=== PATIENT | female | born 1940 | race Caucasian/White ===

== ENCOUNTER 2020-04-01 09:57 | Outpatient (CLI) | payer MEDICARE, SELFPAY ==
[2020-04-01 10:08] LABS: Basophils Absolute Auto 0.04 K/mm3 (0.00-0.10); Basophils Percent Auto 0.6 % (0.0-1.0); Eosinophils Absolute Auto 0.05 K/mm3 (0.02-0.50); Eosinophils Percent Auto 0.8 % (1.0-6.0); Hematocrit 42.8 % (35.0-42.0); Hemoglobin 13.9 g/dL (11.7-13.8); Immature Granulocyte Absolute 0.01 K/mm3 (0.00-0.00); Immature Granulocyte Percent A 0.2 % (0.0-0.0); Lymphocytes Absolute Auto 1.92 K/mm3 (1.10-4.50); Lymphocytes Percent Auto 29.7 % (18.0-42.0); Mean Corpuscular HGB Conc 32.5 g/dL (32.0-36.0); Mean Corpuscular Hemoglobin 28.8 pg (27.0-31.0); Mean Corpuscular Volume 88.8 fL (78.0-102.0); Mean Platelet Volume 8.9 fl (9.2-11.8); Monocytes Absolute Auto 0.44 K/mm3 (0.10-0.90); Monocytes Percent Auto 6.8 % (2.0-11.0); Neutrophils Percent Auto 61.9 % (50.0-70.0); Platelet Count Result 268 K/mm3 (150-420); Red Blood Count 4.82 M/mm3 (4.20-5.40); Red Cell Distribution Width 13.1 % (11.6-14.4); White Blood Count 6.5 K/mm3 (4.8-10.8)
[2020-04-01 11:31] LABS: Alanine Aminotransferase 25 U/L (14-59); Albumin Level 3.7 g/dL (3.4-5.0); Alkaline Phosphatase 59 U/L (46-116); Anion Gap 4 mmol/L (8-16); Aspartate Amino Transferase 23 U/L (15-37); Bilirubin,Total 0.3 mg/dL (0.00-1.00); Blood Urea Nitrogen 14 mg/dL (7-18); Calcium 9.2 mg/dL (8.5-10.1); Carbon Dioxide 33 mmol/L (21-32); Chloride 103 mmol/L (98-108); Cholesterol 224 mg/dL (0-200); Estimated Glomerular Filt Rate 56; Glucose 86 mg/dL (70-99); HDL Direct 58 mg/dL (40-60); LDL Cholesterol Calculated 129 mg/dL (<130); Osmolality Calculated 289 mOsm/kg (285-295); Potassium 4.5 mmol/L (3.5-5.1); Sodium 140 mmol/L (136-145); Thyroid Stimulating Hormone 4.43 uIU/mL (0.36-3.74); Triglycerides 186 mg/dL (0-150)
[2020-04-03 13:28] LABS: Vitamin D 25 Hydroxy 65 ng/mL (30-100)
== END 2020-04-01 09:58 | disposition home or self-care (01) ==
LOC: CHSLAB 10:00
PROVIDERS: PCP Nurse Practitioner Family; Visit Provider Nurse Practitioner Family
DX: E03.9 Hypothyroidism, unspecified (principal); E78.5 Hyperlipidemia, unspecified; I10 Essential (primary) hypertension; Z79.899 Other long term (current) drug therapy; E55.9 Vitamin D deficiency, unspecified
CPT/HCPCS: 36415; 80053; 80061; 82306; 84439; 84443; 85025

== ENCOUNTER 2020-08-16 09:48 | Outpatient (CLI) | payer MEDICARE, SELFPAY ==
[2020-08-16 10:48] LABS: Free T4 Free Thyroxine 0.81 ng/dL (0.76-1.46); Thyroid Stimulating Hormone 4.54 uIU/mL (0.36-3.74)
== END 2020-08-16 09:49 | disposition home or self-care (01) ==
LOC: CHSLAB 09:50
PROVIDERS: PCP Nurse Practitioner Family; Visit Provider Nurse Practitioner Family
DX: E03.9 Hypothyroidism, unspecified (principal)
CPT/HCPCS: 36415; 84439; 84443

== ENCOUNTER 2020-09-02 10:48 | Outpatient (CLI) | payer MEDICARE, SELFPAY ==
[2020-09-02 10:59] LABS: Hematocrit 41.2 % (35.0-42.0); Hemoglobin 13.6 g/dL (11.7-13.8); Mean Corpuscular Hemoglobin 29.2 pg (27.0-31.0); Mean Corpuscular Volume 88.4 fL (78.0-102.0); Mean Platelet Volume 9.3 fl (9.2-11.8); Platelet Count Result 248 K/mm3 (150-420); Red Blood Count 4.66 M/mm3 (4.20-5.40); Red Cell Distribution Width 13.2 % (11.6-14.4); White Blood Count 5.5 K/mm3 (4.8-10.8)
[2020-09-02 12:11] LABS: Alanine Aminotransferase 21 U/L (14-59); Albumin Level 3.8 g/dL (3.4-5.0); Alkaline Phosphatase 60 U/L (46-116); Anion Gap 9 mmol/L (8-16); Aspartate Amino Transferase 17 U/L (15-37); Bilirubin,Total 0.3 mg/dL (0.00-1.00); Blood Urea Nitrogen 14 mg/dL (7-18); Carbon Dioxide 30 mmol/L (21-32); Chloride 102 mmol/L (98-108); Estimated Glomerular Filt Rate > 60; Glucose 103 mg/dL (70-99); Osmolality Calculated 292 mOsm/kg (285-295); Potassium 4.1 mmol/L (3.5-5.1); Sodium 141 mmol/L (136-145); Total Protein 6.7 g/dL (6.4-8.2); Vitamin B12 1087 pg/mL (193-986)
[2020-09-02 12:26] LABS: Folic Acid > 20.0 ng/mL (8.6->20)
== END 2020-09-02 10:49 | disposition home or self-care (01) ==
LOC: CHSLAB 10:50
PROVIDERS: PCP Family Medicine; Visit Provider Family Medicine
DX: R42 Dizziness and giddiness (principal); R53.83 Other fatigue; E53.8 Deficiency of other specified B group vitamins
CPT/HCPCS: 36415; 80053; 82607; 82746; 85027

== ENCOUNTER 2020-09-06 10:11 | Outpatient (CLI) | payer MEDICARE, SELFPAY ==
[2020-09-06 22:59] LABS: SARS-CoV-2 RNA PCR Negative
== END 2020-09-06 10:12 | disposition home or self-care (01) ==
LOC: CHSLAB 10:14
PROVIDERS: PCP Family Medicine; Visit Provider Family Medicine
DX: Z20.822 Contact with and (suspected) exposure to COVID-19 (principal)
CPT/HCPCS: C9803; U0003; U0005

== ENCOUNTER 2020-09-23 13:14 | Outpatient (CLI) | payer MEDICARE, SELFPAY ==
--- NOTE | 2020-09-23 13:17 | ECG_ITS ---
Measurements Intervals [place] Rate: 77 P: 76 [place]: 157 QRS: 42 QRSD: 99 T: 79 QT: 368 QTc: 418 Interpretive Statements SINUS RHYTHM BORDERLINE R WAVE PROGRESSION, ANTERIOR LEADS BORDERLINE ECG Electronically Signed On 09-23-2020 13:30:21 [employer] by Rocyk Giron D.O.
[2020-09-23 15:09] LABS: Add Urine Microscopic? NO; Appearance Urine Clear (Clear); Bilirubin Urine Negative (Negative); Blood Urine Negative (Negative); Color Urine Yellow (Yellow); Glucose Urine UA Negative (Negative); Ketones Urine Negative (Negative); Leukocyte Esterase Ur Negative LEU/UL (Negative); Nitrate Urine Negative (Negative); Protein Urine Negative (Negative); Specific Grav Ur 1.015 (1.010-1.020); Urobilinogen Urine 0.2 mg/dL (0.2-1.0); pH Urine 7.5 (5.0-8.0)
[2020-09-23 15:52] LABS: Magnesium 2.3 mg/dL (1.8-2.4)
[2020-09-23 16:10] LABS: Erythrocyte Sedimentation Rate 12 mm/hr (0-20)
[2020-09-25 13:21] LABS: Vitamin D 25 Hydroxy 59 ng/mL (30-100)
[2020-09-27 12:02] LABS: Anti Nuclear Antibody Titer >=1:1280 (Negative)
== END 2020-09-23 13:15 | disposition home or self-care (01) ==
PROVIDERS: PCP Nurse Practitioner Family; Visit Provider Nurse Practitioner Family
DX: R07.89 Other chest pain (principal); Z01.818 Encounter for other preprocedural examination; R53.83 Other fatigue; R20.8 Other disturbances of skin sensation; R68.89 Other general symptoms and signs; Z79.899 Other long term (current) drug therapy
CPT/HCPCS: 36415; 81003; 82306; 83735; 85652; 86038; 86039; 93005

== ENCOUNTER 2020-11-17 14:07 | Emergency (ER) | payer MEDICARE, SELFPAY ==
--- NOTE | 2020-11-17 14:12 | ED.NAVMDI ---
HPI - Nausea/Vomiting/Diarrhea General Chief complaint: Weakness Stated complaint: weak Source: patient Mode of arrival: ambulatory Limitations: no limitations History of Present Illness HPI Narrative: patient has had her 2nd COVID shot on October 16 elicited complaint: nausea and vomiting Onset (ago): day(s) (2) Description of vomiting: bilious Associated nausea: Yes Associated abdominal pain: No Exacerbating factors: eating Relieving factors: none Context: sick contacts ( daughter with similar symptoms) Associated symptoms: weakness Related Data Home Medications Medication Instructions Recorded Confirmed cholecalciferol (vitamin D3) 125 125 mcg PO DAILY 04/01/20 11/17/20 mcg (5,000 unit) capsule rosuvastatin 10 mg tablet 5 mg PO DAILY tablet 08/27/20 11/17/20 lisinopril 5 mg PO DAILY 11/17/20 11/17/20 melatonin 3 mg PO HS PRN 11/17/20 11/17/20 mirtazapine 15 mg PO DAILY 11/17/20 11/17/20 Allergies Allergy/AdvReac Type Severity Reaction Status Date / Time No Known Allergies Allergy Verified 09/30/20 07:59 Review of Systems Review of Systems: All systems reviewed & are unremarkable except as noted in HPI and below Constitutional: Constitutional: Denies chills, Reports fever(s) ( subjective) and Reports weakness Cardiovascular: Cardiovascular: Reports no additional cardiovascular complaints Respiratory: Respiratory: Reports no additional respiratory complaints Gastrointestinal: Gastrointestinal: Reports as per HPI Genitourinary: Genitourinary: Reports no additional female genitourinary complaints Musculoskeletal: Musculoskeletal: Reports no additional musculoskeletal complaints Neurologic: Reports system reviewed and no additional complaints, except as documented [facility] Past Medical History Medical History (Updated 11/17/20 @ 15:37 by Serafin Fowler MD) Benign paroxysmal positional vertigo Colon polyp YAZMIN (generalized anxiety disorder) HTN (hypertension) Hyperlipidemia Hypothyroidism Vitamin D deficiency Surgical History Surgical History (Updated 11/17/20 @ 14:21 by Serafin Fowler MD) History of bladder suspension procedure Hx of hysterectomy Family History Family History Father Pancreatic cancer Social History Social History Smoking status: Never smoker Alcohol intake: never Substance use: never Substance use type: does not use Additional living arrangements comments: . Has 3 children Gender identity (if verbalized by the patient): Female Exam Const: General: healthy appearing and no acute distress Nutritional Appearance: well nourished Orientation/consciousness: patient oriented x3 HENMT: Head: normal to inspection Ears: external ears normal Eyes: Cornea: corneas normal Pupils: Equal, round and reactive pupils present EOM: EOMs intact bilaterally Neck: Neck: normal visual inspection Resp: Effort & Inspection: normal respiratory effort Auscultation: clear to auscultation bilaterally Cardio: Rate: regular rate Rhythm: regular rhythm GI: GI Palp: Yes Soft to palpation and No Tenderness to palpation present (GI) Auscultation: Hyperactive bowel sounds present Back/Spine/Pelvis: Cervical Spine: cervical ROM normal Thoracic/Lumbar Spine: thoraco-lumbar ROM normal Skin: General skin exam: normal color Rashes: no rashes Neuro: General: patient oriented x3, moves all extremities, no meningeal signs and no focal motor deficits Speech: normal speech Gait exam (Neuro): Normal gait present Extrem: General: normal to inspection and no clubbing, cyanosis or edema Psych: Appearance: grossly normal and well kempt Mental Status: mental status grossly normal Affect: normal affect Attitude: cooperative Thought content: Yes Normal thought content present Course Vital Signs Vital signs: Vital Signs Temperature 37.2 C 11/17/20 14:
[2020-11-17 14:15] VITALS: BP 148/76; PULSE 86; RESP 15; TEMP 37.2; O2SAT 99
[2020-11-17] MEDS: ONDANSETRON INJ 4 MG/2 ML VIAL IV PUSH (14:28)
[2020-11-17] MEDS: SODIUM CHLORIDE 0.9% IV 1,000 ML 999 ML IV CONT (14:29)
[2020-11-17 14:47] LABS: Basophils Absolute Auto 0.03 K/mm3 (0.00-0.10); Basophils Percent Auto 0.4 % (0.0-1.0); Hematocrit 37.4 % (35.0-42.0); Hemoglobin 12.6 g/dL (11.7-13.8); Immature Granulocyte Absolute 0.03 K/mm3 (0.00-0.00); Immature Granulocyte Percent A 0.4 % (0.0-0.0); Lymphocytes Absolute Auto 1.99 K/mm3 (1.10-4.50); Mean Corpuscular HGB Conc 33.7 g/dL (32.0-36.0); Mean Corpuscular Volume 86.2 fL (78.0-102.0); Mean Platelet Volume 9.3 fl (9.2-11.8); Monocytes Absolute Auto 0.82 K/mm3 (0.10-0.90); Monocytes Percent Auto 11.1 % (2.0-11.0); Neutrophils Absolute Auto 4.5 K/mm3 (1.7-7.2); Neutrophils Percent Auto 61.1 % (50.0-70.0); Platelet Count Result 287 K/mm3 (150-420); Red Blood Count 4.34 M/mm3 (4.20-5.40); Red Cell Distribution Width 13.2 % (11.6-14.4); White Blood Count 7.4 K/mm3 (4.8-10.8)
[2020-11-17 15:08] LABS: Alanine Aminotransferase 20 U/L (14-59); Albumin Level 3.4 g/dL (3.4-5.0); Alkaline Phosphatase 48 U/L (46-116); Anion Gap 8 mmol/L (8-16); Aspartate Amino Transferase 22 U/L (15-37); Bilirubin,Total 0.5 mg/dL (0.00-1.00); Blood Urea Nitrogen 21 mg/dL (7-18); Calcium 8.2 mg/dL (8.5-10.1); Carbon Dioxide 27 mmol/L (21-32); Chloride 94 mmol/L (98-108); Estimated Glomerular Filt Rate 56; Glucose 105 mg/dL (70-99); Lipase 243 U/L (73-393); Osmolality Calculated 271 mOsm/kg (285-295); Potassium 3.7 mmol/L (3.5-5.1); Sodium 129 mmol/L (136-145); Total Protein 6.8 g/dL (6.4-8.2)
[2020-11-17 15:14] LABS: CRP 0.4 mg/dL (0.0-0.9)
[2020-11-17 15:20] LABS: Add Urine Microscopic? YES; Appearance Urine Clear (Clear); Bilirubin Urine Negative (Negative); Blood Urine Negative (Negative); Color Urine Yellow (Yellow); Glucose Urine UA Negative (Negative); Ketones Urine 1+ (Negative); Leukocyte Esterase Ur Negative LEU/UL (Negative); Nitrate Urine Negative (Negative); Protein Urine Negative (Negative); Specific Grav Ur >= 1.030 (1.010-1.020); Urobilinogen Urine 0.2 mg/dL (0.2-1.0)
[2020-11-17 15:30] LABS: Squamous Epithelial Cell Urine Few /hpf (Few); WBC Urine 0-3 /hpf (0-3)
[2020-11-17 16:24] VITALS: BP 153/76
== END 2020-11-17 16:25 | disposition home or self-care (01) ==
PROVIDERS: Emergency Provider Emergency Medicine; PCP Nurse Practitioner Family
DX: K52.9 Noninfective gastroenteritis and colitis, unspecified (principal); E87.1 Hypo-osmolality and hyponatremia; I10 Essential (primary) hypertension; E78.5 Hyperlipidemia, unspecified; E03.9 Hypothyroidism, unspecified; E55.9 Vitamin D deficiency, unspecified
CPT/HCPCS: 36415; 51701; 80053; 81001; 83690; 85025; 86140; 96361; 96374; 99283; 99284; J2405; J7030

== ENCOUNTER 2020-11-18 04:12 | Inpatient (IN) | payer MEDICARE, SELFPAY ==
[2020-11-18] VITALS (18 sets, daily range): BP systolic 121–179; BP diastolic 61–98; PULSE 77–98; RESP 18–20; TEMP 37–38.8; O2SAT 94–100; BMI 20.9
--- NOTE | ~2020-11-18 | CT_ITS ---
EXAMINATION: CT cervical spine wo con DATE: 11/19/2020 03:03 INDICATION: Patient fell out of bed and struck forehead. TECHNIQUE: Computed tomography (CT) of the cervical spine was performed without intravenous contrast. Automated exposure control and iterative reconstruction technique were employed. Exam dose: 248.10 mGy-cm total exam DLP. COMPARISON: None FINDINGS: C1 and C2 are normally aligned and the odontoid process is intact. There is moderately severe degenerative disc disease and posterior spurring at C5-6. No fracture or dislocation or locked facet or prevertebral soft tissue swelling.. IMPRESSION: Degenerative change; no fracture or dislocation Reviewed, dictated and finalized at [facility]. Reviewed, dictated and finalized at location [facility].
--- NOTE | ~2020-11-18 | CT_ITS ---
EXAMINATION: CT brain wo con DATE: 11/18/2020 04:47 INDICATION: Fall, striking head in shower. Weakness. TECHNIQUE: Computed tomography (CT) of the head was performed without intravenous contrast. The mA wa s adjusted according to patient size. Iterative reconstruction technique was employed. Exam dose: 60 5.33 mGy-cm total exam DLP. COMPARISON: None FINDINGS: No intracranial mass lesion or hemorrhage or cerebrovascular accident is evident. No midlin e shift or mass effect. Normal ventricular size. There is nonspecific diminished attenuation cerebral white matter, likely due to chronic small vessel ischemic changes No skull fracture or bone destruction is evident. There is mild focal soft tissue thickening at the posterior aspect of the left sphenoid sinus. Includ ed paranasal sinuses and mastoid air cells otherwise are unremarkable. IMPRESSION: No skull fracture or acute intracranial finding Reviewed, dictated and finalized at [facility]. Reviewed, dictated and finalized at [facility].
--- NOTE | ~2020-11-18 | CT_ITS ---
EXAMINATION: CT brain wo con DATE: 11/19/2020 03:03 INDICATION: Patient fell out of bed and struck forehead. TECHNIQUE: Computed tomography (CT) of the head was performed without intravenous contrast. The mA wa s adjusted according to patient size. Iterative reconstruction technique was employed. Exam dose: 83 2.33 mGy-cm total exam DLP. COMPARISON: 11/18/2020 CT brain FINDINGS: No intracranial mass lesion or hemorrhage or cerebrovascular accident is evident. No midlin e shift or mass effect effect. Normal ventricular size. No subdural or epidural hematoma is detected. The orbital contents are unremarkable. Focal posterior left sphenoid sinus soft tissue thickening. The included paranasal sinuses and the ma stoid air cells are otherwise unremarkable. No fracture or bone destruction of the cranial vault. IMPRESSION: No significant intracranial abnormality or skull fracture Reviewed, dictated and finalized at [facility]. Reviewed, dictated and finalized at location [facility].
--- NOTE | ~2020-11-18 | XR_ITS ---
XR chest 1V portable DATE: 11/19/2020 03:03 INDICATION: Fever TECHNIQUE: Portable AP chest on 11/19/2020 at 0301 hours COMPARISON: None FINDINGS: Heart size is within normal range. Is aortic calcification. No hilar or mediastinal enlarge ment. No pulmonary infiltrate or consolidation, pleural effusion or pulmonary vascular congestion or pneumothorax. Diffuse osteopenia. IMPRESSION: No active cardiopulmonary disease Aortic atherosclerosis Reviewed, dictated and finalized at location A.
--- NOTE | ~2020-11-18 | XR_ITS ---
EXAMINATION: XR abdomen/kub 1V DATE: 11/19/2020 07:19 INDICATION: Fever. TECHNIQUE: A supine view of the abdomen on 2 radiographs was obtained. COMPARISON: Abdomen radiograph 11/18/2020 FINDINGS: There are no dilated loops of bowel. There is a moderate volume of stool in the colon. IMPRESSION: 1. Normal bowel gas pattern. Reviewed, dictated and finalized at location B.
--- NOTE | ~2020-11-18 | MR_ITS ---
EXAMINATION: MR brain IAC wo con DATE: 11/20/2020 10:44 INDICATION: Altered mental status. Confusion. TECHNIQUE: Magnetic resonance imaging (MRI) of the brain, brainstem, and internal auditory canals was performed without intravenous contrast. Sequences included sagittal and axial T1-weighted FSE, axial diffusion-weighted FS EPI, axial T2*-weighted GRE, axial T2-weighted FLAIR Propeller, axial T2-weigh juan francisco Propeller, small vtmtx-uz-[id number] coronal FIESTA, small wnelw-fo-zjyl coronal T1-weighted FSE, and s mall gtrcl-yq-[id number] axial T1-weighted SPGR. Apparent diffusion coefficient (ADC) maps were created. COMPARISON: Head CT 11/19/2020 FINDINGS: There are scattered areas of nonspecific increased T2-weighted signal intensity in the cere bral and cerebellar white matter and thalami and prince. There is no intracranial hemorrhage, acute inf arction, or abnormal intracranial mass lesion. There is mild mucosal thickening in the ethmoid sinuse s. The internal auditory canals and inner and middle ears are normal. The mastoid air cells are ashley l. The orbits are normal. IMPRESSION: 1. Moderate nonspecific cerebral and cerebellar white matter disease and disease of the thalami and p ons, which likely represents chronic small vessel ischemic disease. Reviewed, dictated and finalized at location B. IMPRESSION: 1. Moderate nonspecific cerebral and cerebellar white matter disease and diseas e of the thalami and prince, which likely represents chronic small vessel ischemi c disease.
--- NOTE | ~2020-11-18 | CT_ITS ---
EXAMINATION: CT chest abdomen pelvis w con DATE: 11/19/2020 11:56 INDICATION: Abdominal pain. Fever. TECHNIQUE: Computed tomography (CT) of the chest, abdomen, and pelvis was performed with 100 mL Omnip aque 350 intravenous contrast. Automated exposure control and iterative reconstruction technique were employed. The dose-length product was 331.12 mGy-cm. COMPARISON: CT abdomen and pelvis 08/12/2017 FINDINGS: CHEST CT: There is mild scarring at the lung apices. There is mild atelectasis bilaterally. No pleural effusion . There are nodules in the thyroid measuring up to 10 mm, likely not clinically significant. The hear t size is normal. There are coronary artery calcifications. No pericardial effusion. There is mild th oracic spondylosis. There is mild chronic anterior wedging of multiple vertebral bodies. ABDOMEN/PELVIS CT: There is diffuse hepatic steatosis. The gallbladder, spleen, pancreas, adrenal glands, and right kidn ey are normal. There is a 12 mm cyst in left kidney. There are no dilated loops of bowel. There are b ilateral inguinal hernias containing fat. There is diverticulosis of the colon without evidence of di verticulitis. The appendix is not visualized. There is a small sliding hiatal hernia. There are no pa thologically enlarged lymph nodes. There is no free intraperitoneal fluid. The bladder is decompresse d by a Flowers catheter. There is severe lower lumbar spondylosis. IMPRESSION: 1. Small sliding hiatal hernia. 2. Diffuse hepatic steatosis. 3. Small bilateral inguinal hernias containing fat. Reviewed, dictated and finalized at location B.
--- NOTE | ~2020-11-18 | XR_ITS ---
EXAMINATION: XR abdomen/kub 1V DATE: 11/18/2020 12:47 INDICATION: Constipation. Abdominal discomfort. TECHNIQUE: A supine view of the abdomen was obtained. COMPARISON: CT abdomen and pelvis 08/12/2017 FINDINGS: The rectum is distended and contains stool. There are no dilated loops of small bowel. IMPRESSION: 1. Rectal distention again seen. Reviewed, dictated and finalized at location B.
[2020-11-18] MEDS: SODIUM CHLORIDE 0.9% IV 1,000 ML 150 ML IV CONT ×3 (05:00→19:05)
--- NOTE | 2020-11-18 05:37 | PC.NURSE ---
pt up to commode with assist of 1. feels like pressure to urinate. unable to urinate.
--- NOTE | 2020-11-18 06:17 | ED.WEAKNESS ---
HPI - Weakness General Chief complaint: Weakness Stated complaint: Urine incontinence Source: patient, family and RN notes reviewed Limitations: no limitations History of Present Illness HPI Narrative: Patient was here her yesterday and was having some nausea vomiting. She was given some normal saline 1 L found to have hyponatremia as her only diagnosis. She was sent home. Daughter comes in and says that she has been picking at the air laughing more confused. She had to go to the restroom was incontinent. Daughter says this is not like her and she lives alone and there is no on else to stay with her. Daughter also said that she had been falling last couple of weeks may have hit her head which was not related to us on her visit yesterday. Complaint: generalized weakness Onset (ago): hour(s) (4) Duration: intermittent Location: generalized Migration: none Severity: moderate Relieving factors: none Exacerbating factors: none Associated symptoms: confusion Related Data Home Medications Medication Instructions Recorded Confirmed cholecalciferol (vitamin D3) 125 125 mcg PO DAILY 04/01/20 11/18/20 mcg (5,000 unit) capsule rosuvastatin 10 mg tablet 5 mg PO DAILY tablet 08/27/20 11/18/20 lisinopril 5 mg PO DAILY 11/17/20 11/18/20 melatonin 3 mg PO HS PRN 11/17/20 11/18/20 mirtazapine 15 mg PO DAILY 11/17/20 11/18/20 Allergies Allergy/AdvReac Type Severity Reaction Status Date / Time No Known Allergies Allergy Verified 09/30/20 07:59 Review of Systems Review of Systems: All systems reviewed & are unremarkable except as noted in HPI and below PMFSH Past Medical History Medical History Benign paroxysmal positional vertigo Colon polyp YAZMIN (generalized anxiety disorder) HTN (hypertension) Hyperlipidemia Hypothyroidism Vitamin D deficiency Surgical History Surgical History History of bladder suspension procedure Hx of hysterectomy Family History Family History Father Pancreatic cancer Social History Social History Smoking status: Never smoker Alcohol intake: never Substance use: never Substance use type: does not use Additional living arrangements comments: . Has 3 children Gender identity (if verbalized by the patient): Female Exam Const: General: healthy appearing, no acute distress and alert Nutritional Appearance: well nourished Orientation/consciousness: patient oriented x3 HENMT: Head: normal to inspection Ears: external ears normal Mouth: Yes moist mucous membranes Eyes: Conjunctivae: conjunctivae normal Pupils: Equal, round and reactive pupils present EOM: EOMs intact bilaterally Neck: Neck: normal visual inspection and no meningeal signs Resp: Effort & Inspection: normal respiratory effort Auscultation: clear to auscultation bilaterally Cardio: Rate: regular rate Rhythm: regular rhythm GI: GI Palp: Yes Soft to palpation, No Tenderness to palpation present (GI) and No Guarding due to palpation present (GI) Auscultation: normal bowel sounds Back/Spine/Pelvis: Cervical Spine: cervical ROM normal Thoracic/Lumbar Spine: thoraco-lumbar ROM normal Skin: General skin exam: normal color Rashes: no rashes Neuro: General: patient oriented x3, moves all extremities, no meningeal signs, no focal motor deficits and CN's II-XI intact bilaterally Speech: normal speech Other: Resting tremors Extrem: General: normal to inspection and no clubbing, cyanosis or edema Psych: Appearance: grossly normal and well kempt Mental Status: mental status grossly normal Affect: normal affect Attitude: cooperative Thought content: Yes Normal thought content present Course Course Emergency Course: I reviewed yesterday's labs. CT scan today is completely normal. Oz
--- NOTE | 2020-11-18 07:05 | PC.NURSE ---
report to vern jean baptiste
--- NOTE | 2020-11-18 08:10 | ADMGEN ---
This patient, Anay Goins, was admitted to 2nd Floor Room 206-1 for frequent falls, hyponatremia, confusing and weakness. Patient/family oriented to hospital policies and general routines including ID bracelet, bed and alarms, visiting hours, pain management, procedures, bathroom and other care routines, personal items, smoking policy, room service/diet, and visiting hours. Information on how to activate the Rapid Response Team has been discussed. Patient/Family are encouraged to report perceived risks to care and to ask questions if they do not understand what they are told or what they should do.
[2020-11-18] MEDS: CHOLECALCIFEROL 1,000 UNITS TABLET 5000 UNITS PO (09:22)
[2020-11-18] MEDS: ACETAMINOPHEN 325 MG TABLET 650 MG PO ×2 (09:23→16:01)
--- NOTE | 2020-11-18 10:56 | PM.IMHP ---
H&P: HPI History of Present Illness Date/Time: 11/18/20 10:56 Anay Goins is a 80 y/o female who came to the hospital yesterday for weakness. Pt was found to have Hyponatremia. She was given NS 1 Liter bolus and Zofran then sent home. Daughter later sent the Pt back to the ER as the Pt was hallucinating, grabbing at things in the air, loss of bladder control, urinating uncontrollably, talking and spelling with no clear point or purpose, and daughter states that the Pt had been falling more often lately and had hit the back of her head at some point. These last statements were not provided during her initial visit to the ER. CT scan was negative with radiologist report IMPRESSION: No skull fracture or acute intracranial finding. This AM Pt states she does not recall any of what the daughter was describing. Pt denies CP, SOB, Abdominal issues/pain, fevers, chills, she did have her second COVID vaccination on October 16, 2020. Chief Complaint: falling, hyponatremia Review of Systems Review of Systems: Narrative: Denies any recent changes in medications Constitutional: Constitutional: Reports no additional constitutional complaints, Denies body ache(s), Denies chills, Denies fever(s) and Denies headache(s) Eyes: Eyes: Reports no additional eye complaints and Denies change in vision ENT: Reports system reviewed and no additional complaints, except as documented and Reports Normal hearing present Cardiovascular: Cardiovascular: Reports no additional cardiovascular complaints, Denies chest pain and Denies chest pain at rest Respiratory: Respiratory: Reports no additional respiratory complaints, Denies cough, Denies dyspnea and Denies dyspnea on exertion Gastrointestinal: Gastrointestinal: Reports no additional gastrointestinal complaints and Denies change in bowel habits Genitourinary: Comments: Pt admits she is now wearing a pair of briefs for urinary incontinence Musculoskeletal: Musculoskeletal: Reports no additional musculoskeletal complaints Neurologic: Reports system reviewed and no additional complaints, except as documented Comments: Daughter states she had a Hx of vertigo, did not feel well when standing up with PT, stated she felt like she was going to fall. Psychiatric: Psychiatric: Reports no additional psychiatric complaints, Reports anxiety and Reports depression Comments: denies any hallucinations Endocrine: Comments: Per daughter Pt was given Synthroid but stopped taking it. [facility] Past Medical History Medical History (Updated 11/18/20 @ 12:58 by TRICIA Marshall) Benign paroxysmal positional vertigo Colon polyp Dysphagia YAZMIN (generalized anxiety disorder) HTN (hypertension) Hyperlipidemia Hypothyroidism Vitamin D deficiency Surgical History Surgical History History of bladder suspension procedure Hx of hysterectomy Family History Family History Father Pancreatic cancer Social History Social History Smoking status: Never smoker Alcohol intake: never Substance use: never Substance use type: does not use Additional living arrangements comments: . Has 3 children Gender identity (if verbalized by the patient): Female Sexual Orientation (if Verbalized by the Patient): Straight or Heterosexual Spiritual care concerns: No Meds Home Medications and Allergies Home Medications Medication Instructions Recorded Confirmed Type cholecalciferol (vitamin D3) 125 125 mcg PO DAILY 04/01/20 11/18/20 History mcg (5,000 unit) capsule rosuvastatin 10 mg tablet 5 mg PO DAILY tablet 08/27/20 11/18/20 History escitalopram oxalate 20 mg tablet 10 mg PO DAILY #30 tablet 09/30/20 11/18/20 Rx lisinopril 5 mg PO DAILY 11/17/20 11/18/20 History melatonin 3 mg PO HS PRN 11/17/20 11/18/20 History mirtazapine 15 mg PO DAILY
[2020-11-18 11:34] LABS: Hematocrit 35.3 % (35.0-42.0); Hemoglobin 12.1 g/dL (11.7-13.8); Mean Corpuscular HGB Conc 34.3 g/dL (32.0-36.0); Mean Corpuscular Hemoglobin 29.3 pg (27.0-31.0); Mean Corpuscular Volume 85.5 fL (78.0-102.0); Mean Platelet Volume 9.1 fl (9.2-11.8); Platelet Count Result 296 K/mm3 (150-420); Red Blood Count 4.13 M/mm3 (4.20-5.40); Red Cell Distribution Width 13.1 % (11.6-14.4); White Blood Count 6.4 K/mm3 (4.8-10.8)
[2020-11-18 11:39] LABS: Basophils Percent Auto 0.5 % (0.0-1.0); Immature Granulocyte Percent A 0.2 % (0.0-0.0); Lymphocytes Percent Auto 23.6 % (18.0-42.0); Monocytes Percent Auto 7.5 % (2.0-11.0); Neutrophils Percent Auto 68.2 % (50.0-70.0)
[2020-11-18 11:40] LABS: Basophils Absolute Auto 0.03 K/mm3 (0.00-0.10); Immature Granulocyte Absolute 0.01 K/mm3 (0.00-0.00); Lymphocytes Absolute Auto 1.52 K/mm3 (1.10-4.50); Monocytes Absolute Auto 0.48 K/mm3 (0.10-0.90); Neutrophils Absolute Auto 4.4 K/mm3 (1.7-7.2); Platelet Estimate Adequate (Adequate)
--- NOTE | 2020-11-18 11:54 | ECG_ITS ---
Measurements Intervals [place] Rate: 85 P: 61 [place]: 154 QRS: -55 QRSD: 97 T: 78 QT: 392 QTc: 467 Interpretive Statements SINUS RHYTHM LEFT AXIS DEVIATION BORDERLINE R WAVE PROGRESSION, ANTERIOR LEADS BORDERLINE T WAVE ABNORMALITY- ANTEROLAT/HIGH LAT LEADS BASELINE ARTIFACT- III, AVF, V2-V3 BORDERLINE ECG Electronically Signed On 11-18-2020 13:02:02 CDT by Rocky Giron D.O.
[2020-11-18 11:58] LABS: Alanine Aminotransferase 22 U/L (14-59); Albumin Level 3.2 g/dL (3.4-5.0); Alkaline Phosphatase 44 U/L (46-116); Anion Gap 10 mmol/L (8-16); Aspartate Amino Transferase 23 U/L (15-37); Bilirubin,Total 0.5 mg/dL (0.00-1.00); Blood Urea Nitrogen 14 mg/dL (7-18); Calcium 7.8 mg/dL (8.5-10.1); Carbon Dioxide 23 mmol/L (21-32); Chloride 97 mmol/L (98-108); Estimated CRCL calculation 42 ml/min; Estimated Glomerular Filt Rate > 60; Glucose 106 mg/dL (70-99); Magnesium 1.8 mg/dL (1.8-2.4); Osmolality Calculated 270 mOsm/kg (285-295); Potassium 3.7 mmol/L (3.5-5.1); Sodium 130 mmol/L (136-145); Total Protein 6.3 g/dL (6.4-8.2)
[2020-11-18] MEDS: MECLIZINE HCL 25 MG TABLET PO ×2 (12:48→16:01)
[2020-11-18] MEDS: BISACODYL 10 MG SUPPOSITORY RECTAL (13:31)
--- NOTE | 2020-11-18 15:27 | PC.NURSE ---
Speech Therapist in room to do bedside swallow evaluation
[2020-11-18] MEDS: SODIUM CHLORIDE 1 GM TABLET PO (16:00)
[2020-11-18] MEDS: ONDANSETRON HCL ODT 4 MG TABLET PO ×2 (16:06→23:56)
--- NOTE | 2020-11-18 16:09 | PCSTNOTE ---
Please refer to the Bedside Swallow Evaluation in the EMR. Please note, silent aspiration cannot be ruled out at bedside.
[2020-11-18] MEDS: ROSUVASTATIN 5 MG TABLET PO (18:58)
[2020-11-18] MEDS: MIRTAZAPINE 7.5 MG TABLET PO (20:38)
[2020-11-18] MEDS: ESCITALOPRAM OXALATE 10 MG TABLET PO (20:38)
[2020-11-18] MEDS: MELATONIN 3 MG TABLET PO (22:00)
--- NOTE | 2020-11-18 22:51 | PC.NURSE ---
Patient fell attempting to exit bed. Alarm was on and sounded. Fall observed by nurse. Patient stood up and immediately fell striking her left forehead. Doctor notified. Assisted back to bed. Ice applied to area.
--- NOTE | 2020-11-18 22:59 | PC.NURSE ---
Doctor notified of fall. Daughter notified.
--- NOTE | 2020-11-18 23:02 | PC.NURSE ---
Information amended regarding fall. Observing nurse stated patient was sitting on edge of bed and fell forward onto the floor striking her forehead.
[2020-11-19] VITALS (21 sets, daily range): BP systolic 126–169; BP diastolic 71–84; PULSE 72–101; RESP 16–20; TEMP 36.4–38.8; O2SAT 94–98
--- NOTE | 2020-11-19 | PC.NURSE ---
Alarm sounding-patient attempting to sit up. bedpan provided but no result. Melatonin and zofran given to patient
--- NOTE | 2020-11-19 00:10 | PC.NURSE ---
Dr. Burks notified of pt's inability to void; New orders received and noted. #16 ferrer catheter placed as ordered with immediate return of clear, yellow urine.
--- NOTE | 2020-11-19 00:21 | PC.NURSE ---
Patient has been unable to void in spite of numerous attempts. Bladder distended and painful with palpitation. Notified and order received for Flowers catheter placement. Immediate return of 1000 ml of clear very pale urine. Flowers clamped off at 1000.
--- NOTE | 2020-11-19 00:51 | PC.NURSE ---
UA collected and sent to lab.
[2020-11-19 00:57] LABS: Add Urine Microscopic? YES; Appearance Urine Clear (Clear); Bilirubin Urine Negative (Negative); Blood Urine 2+ (Negative); Color Urine Yellow (Yellow); Glucose Urine UA Negative (Negative); Ketones Urine Negative (Negative); Leukocyte Esterase Ur Negative (Negative); Nitrate Urine Negative (Negative); Protein Urine Negative (Negative); Urobilinogen Urine 0.2 mg/dL (0.2-1.0)
[2020-11-19 01:05] LABS: Amphetamine Screen Urine Negative (Negative); Barbiturate Screen Urine Negative (Negative); Benzodiazepines Screen Urine Negative (Negative); Cannabinoid Screen Urine Negative (Negative); Cocaine Screen Urine Negative (Negative); Methadone Screen Urine Negative (Negative); Opiate Screen Urine Negative (Negative); Phencyclidine Screen Urine Negative (Negative)
[2020-11-19] MEDS: ACETAMINOPHEN 325 MG TABLET 650 MG PO ×4 (01:29→21:16)
[2020-11-19 01:39] LABS: Basophils Absolute Auto 0.04 K/mm3 (0.00-0.10); Basophils Percent Auto 0.4 % (0.0-1.0); Eosinophils Absolute Auto 0.01 K/mm3 (0.02-0.50); Eosinophils Percent Auto 0.1 % (1.0-6.0); Hemoglobin 12.5 g/dL (11.7-13.8); Immature Granulocyte Absolute 0.02 K/mm3 (0.00-0.00); Immature Granulocyte Percent A 0.2 % (0.0-0.0); Lymphocytes Absolute Auto 1.62 K/mm3 (1.10-4.50); Lymphocytes Percent Auto 17.9 % (18.0-42.0); Mean Corpuscular HGB Conc 32.9 g/dL (32.0-36.0); Mean Corpuscular Volume 88.2 fL (78.0-102.0); Mean Platelet Volume 9.2 fl (9.2-11.8); Monocytes Absolute Auto 0.64 K/mm3 (0.10-0.90); Monocytes Percent Auto 7.1 % (2.0-11.0); Neutrophils Absolute Auto 6.7 K/mm3 (1.7-7.2); Neutrophils Percent Auto 74.3 % (50.0-70.0); Platelet Count Result 278 K/mm3 (150-420); Red Blood Count 4.31 M/mm3 (4.20-5.40); Red Cell Distribution Width 13.2 % (11.6-14.4); White Blood Count 9.1 K/mm3 (4.8-10.8)
[2020-11-19 01:53] LABS: Alanine Aminotransferase 26 U/L (14-59); Albumin Level 3.1 g/dL (3.4-5.0); Alkaline Phosphatase 45 U/L (46-116); Anion Gap 10 mmol/L (8-16); Aspartate Amino Transferase 28 U/L (15-37); Bilirubin,Total 0.5 mg/dL (0.00-1.00); Blood Urea Nitrogen 8 mg/dL (7-18); Calcium 7.9 mg/dL (8.5-10.1); Carbon Dioxide 24 mmol/L (21-32); Chloride 95 mmol/L (98-108); Estimated CRCL calculation 46 ml/min; Estimated Glomerular Filt Rate > 60; Glucose 112 mg/dL (70-99); Osmolality Calculated 267 mOsm/kg (285-295); Potassium 3.8 mmol/L (3.5-5.1); Sodium 129 mmol/L (136-145); Total Protein 6.4 g/dL (6.4-8.2); Troponin I 11.4 ng/L (0.00-60.4)
[2020-11-19 02:04] LABS: Magnesium 1.8 mg/dL (1.8-2.4)
[2020-11-19 02:07] LABS: Influenza Control Valid (Valid)
[2020-11-19 02:08] LABS: SARS-CoV-2 Ag Negative (Negative)
--- NOTE | 2020-11-19 02:17 | PC.NURSE ---
Dr. Burks called with new orders; Orders received and noted and X-ray notified.
--- NOTE | 2020-11-19 02:26 | PC.NURSE ---
Talked to Dr. Burks to clarify EKG orders; Order received and noted to cancel EKG.
--- NOTE | 2020-11-19 02:30 | PC.NURSE ---
Assisted patient to X-ray for CT of neck and head, and CXR . Patient unable to transfer or stand.
--- NOTE | 2020-11-19 03:13 | PC.NURSE ---
Pt's temp of 101.[address] Burks; New orders received and noted.
--- NOTE | 2020-11-19 03:18 | PM.EVENT ---
Event Note Event Note Event Note: 03:00 Mrs Goins is seen and evaluated. She reportedly got up and fell hitting her head. She was returned to bed. She has had difficulty voiding, because of this a ferrer was placed with 1000ml out quite quickly. Now the ferrer is clamped. She had a fever of over 101 reported. A urinalysis and blood cultures were obtained. She is alert, seems able to follow simple commands now. Head; bruise on left forehead, mouth and throat negative, neck, she seems to be favoring not flexing fully, lungs clear with decreased breath sounds bilaterally, Ht RRR, abdomen soft nontender, trace pedal edema. CT of head and neck read as negative. CXR read as negative, despite density in maria elena on right side. Fever: Believe likely cause is pneumonia right maria elena. She appears to clearly have a density there. This would also nicely explain her unexplained hyponatremia, and it continuing even in spite of salt tablets and fluids. Ceftriaxone 1 gm now. Wait for cultures. Tylenol. After repeated exams, I find no other likely etiology of fever. Start nebulizers. Change to Zosyn in am, which would cover aspiration organisms better, which could have occurred with altered mental status earlier, which precipitated ER visit. Start nebulizers. Urinary retention: Ferrer placed. Stop meclizine, urinary retention started after this anticholinergic agent was added, doubt it is helping her anyway. Small amount of blood in urine felt likely due to placement of ferrer.
--- NOTE | 2020-11-19 03:36 | PC.NURSE ---
Dr. Burks called and said he was going to start an antibiotic on pt.
[2020-11-19] MEDS: SODIUM CHLORIDE 0.9% IV 1,000 ML 999 ML IV CONT (04:03)
--- NOTE | 2020-11-19 04:54 | PC.NURSE ---
Rocephin completed new order received for neb treatments and DC Rocephin and start zosyn.
[2020-11-19] MEDS: ALBUTEROL SULFATE NEB 2.5 MG/3 ML INH INHALATION (07:04)
[2020-11-19] MEDS: SODIUM CHLORIDE 0.9% IV 1,000 ML 150 ML IV CONT ×2 (09:46→17:37)
[2020-11-19] MEDS: CHOLECALCIFEROL 1,000 UNITS TABLET 5000 UNITS PO (09:56)
[2020-11-19] MEDS: polyethylene glycoL 3350 17 GM POWD.PACK PO (09:56)
[2020-11-19] MEDS: DOCUSATE SODIUM 100 MG CAPSULE PO ×2 (09:56→20:38)
[2020-11-19] MEDS: SODIUM CHLORIDE 1 GM TABLET PO ×2 (09:56→15:57)
[2020-11-19] MEDS: lisinopriL 5 MG TABLET PO (09:56)
--- NOTE | 2020-11-19 11:02 | WPDPN ---
Progress Note: A&P Assessment and Plan (1) Acute hyponatremia: Code(s): E87.1 - Hypo-osmolality and hyponatremia <SILVINO Jackson - Last Filed: 11/19/20 13:04> Status: Acute <Benigno GalvinSILVINO Sommer - Last Filed: 11/19/20 13:04> Assessment and Plan: Etiology unknown could possibly be due to medication mirtazapine NA -->129-->130-->129, baseline appears to be 140 Continue normal saline Continue sodium tabs 1 g twice daily Will call primary care physician's office to see if patient has started on any new medication <SILVINO Jackson - Last Filed: 11/19/20 13:04> (2) Balance problem: Code(s): R26.89 - Other abnormalities of gait and mobility <SILVINO Jackson - Last Filed: 11/19/20 13:04> Status: Acute <SILVINO Jackson - Last Filed: 11/19/20 13:04> Assessment and Plan: 11/18/2020 Starting Christopher, Pt working with PT/OT for balance, stamina, strength, ADLs <SILVINO Jackson - Last Filed: 11/19/20 13:04> (3) Dysphagia: Qualifiers: Dysphagia type: unspecified Qualified Code(s): R13.10 - Dysphagia, unspecified <SILVINO Jackson - Last Filed: 11/19/20 13:04> Code(s): R13.10 - Dysphagia, unspecified <URSZULA JacksonC - Last Filed: 11/19/20 13:04> Status: Acute <SILVINO Jackson - Last Filed: 11/19/20 13:04> Assessment and Plan: 11/18/2020 witnessed Pt with throat pain right after swallowing a small bite of her lunch, Pt states this has gone on for 10-15 years, She has never told her PCP, Ordered ST Swallow evaluation, Pt states she has not been eating much lately According to patient's son she has had a history of esophageal stricture, no intervention needed Bedside swallow eval indicates that patient should have a mechanical diet also recommend that a barium swallow be completed. Barium swallow pending <SILVINO Jackson - Last Filed: 11/19/20 13:04> (4) Abdominal pain: Qualifiers: Abdominal location: lower abdomen, unspecified Qualified Code(s): R10.30 - Lower abdominal pain, unspecified <SILVINO Jackson - Last Filed: 11/19/20 13:04> Code(s): R10.9 - Unspecified abdominal pain <URSZULA JacksonC - Last Filed: 11/19/20 13:04> Status: Acute <SILVINO Jackson - Last Filed: 11/19/20 13:04> Assessment and Plan: 11/18/2020 Lower abdominal pain with palpation, obtaining KUB, Pt states no BM in about 1 week, firm lower abdomen Abdominal x-ray indicates moderate volume of stool in colon normal bowel pattern CT of the abdomen pelvis and chest no significant findings <SILVINO Jackson - Last Filed: 11/19/20 13:04> (5) Constipation: Code(s): K59.00 - Constipation, unspecified <SILVINO Jackson - Last Filed: 11/19/20 13:04> Status: Acute <LINCOLN JacksonAnjelicaJono - Last Filed: 11/19/20 13:04> Assessment and Plan: 11/18/2020 KUB shows distended and containing stool, ordered suppository and RN reports 1 BM repeat Abdominal x-ray indicates moderate volume of stool in colon with normal bowel patterns Started daily docusate and senna, one-time MiraLAX with as needed MiraLAX ordered <URSZULA Jackson - Last Filed: 11/19/20 13:04> (6) Anxiety and depression: Code(s): F41.9 - Anxiety disorder, unspecified; F32.9 - Major depressive disorder, single episode, unspecified <SILVINO Jackson - Last Filed: 11/19/20 13:04> Status: Acute <SILVINO Jackson - Last Filed: 11/19/20 13:04> Assessment and Plan: 11/18/2020 Continue Lexapro and Mirtazapine <SILVINO Jackson - Last Filed: 11/19/20 13:04> (7) Insomnia: Code(s): G47.00 - Insomnia, unspecified <SILVINO Jackson - Last Filed: 11/19/20 13:04> Status: Acute <SILVINO Jackson - Last Filed: 11/19
[2020-11-19 11:17] LABS: SARS-CoV-2 RNA PCR Negative (Negative)
--- NOTE | 2020-11-19 11:30 | PC.NURSE ---
PT left floor via wheelchair for CT @ 1130 accompanied by radiology staff.
[2020-11-19 11:36] LABS: INR 1.1; Partial Thromboplastin Time 25.6 SEC (23.90-30.70); Prothrombin Time 11.4 Seconds (9.50-12.10)
[2020-11-19 11:40] LABS: Ammonia 12 umol/L (11-32)
[2020-11-19 11:41] LABS: Lipase 289 U/L (73-393)
[2020-11-19 11:47] LABS: Lactic Acid Reflex 1.3 mmol/L (0.4-2.0)
--- NOTE | 2020-11-19 11:50 | PC.NURSE ---
Patient back to room from CT. Transferred from wheelchair to bed with 2 assist. Transferred fair. Resting in bed with hob elevated. Catheter cont. draining clear yellow urine to gravity. Call light provided, bed alarm active.
[2020-11-19 12:45] LABS: RSV RNA, RT-PCR Negative (Negative)
[2020-11-19] MEDS: hydrOXYzine HCL 25 MG TABLET PO (15:57)
[2020-11-19] MEDS: ROSUVASTATIN 5 MG TABLET PO (17:36)
[2020-11-19] MEDS: diphenhydrAMINE HCl INJ 50 MG/ML VIAL IV PUSH (20:38)
[2020-11-19] MEDS: MIRTAZAPINE 7.5 MG TABLET PO (20:38)
[2020-11-19] MEDS: ESCITALOPRAM OXALATE 10 MG TABLET PO (20:38)
[2020-11-19] MEDS: MELATONIN 3 MG TABLET PO (20:55)
--- NOTE | 2020-11-19 21:15 | PC.NURSE ---
Patient has temp of 100.9. Scheduled 2200 Tylenol given.
[2020-11-20] VITALS (10 sets, daily range): BP systolic 125–181; BP diastolic 56–163; PULSE 82–121; RESP 18–20; TEMP 36.7–39.3; O2SAT 94–100
--- NOTE | 2020-11-20 | PC.NURSE ---
Patient's temp now 101.0. Too early for PRN Tylenol.
[2020-11-20] MEDS: SODIUM CHLORIDE 0.9% IV 1,000 ML 150 ML IV CONT ×2 (01:25→08:36)
--- NOTE | 2020-11-20 01:45 | PC.NURSE ---
Patient's temp now 99.4. Patient sleeping
--- NOTE | 2020-11-20 03:00 | PC.NURSE ---
Patient's temp now 98.1. Patient sleeping.
--- NOTE | 2020-11-20 05:00 | PC.NURSE ---
Patient's temp now 102.8 Patient's 0600 Tylenol dose given and cool cloths placed on both sides of patient's neck.
[2020-11-20] MEDS: ACETAMINOPHEN 325 MG TABLET 650 MG PO ×2 (05:02→13:08)
--- NOTE | 2020-11-20 05:20 | PC.NURSE ---
Dr. Pappas notified of pt's temp of 102.8. Review of pt's temperatures from 2099 till 0500 given. No new orders at this time.
[2020-11-20 05:38] LABS: Hematocrit 36.6 % (35.0-42.0); Hemoglobin 12.2 g/dL (11.7-13.8); Mean Corpuscular HGB Conc 33.3 g/dL (32.0-36.0); Mean Corpuscular Hemoglobin 29.5 pg (27.0-31.0); Mean Corpuscular Volume 88.4 fL (78.0-102.0); Mean Platelet Volume 10.2 fl (9.2-11.8); Platelet Count Result 276 K/mm3 (150-420); Red Blood Count 4.14 M/mm3 (4.20-5.40); Red Cell Distribution Width 13.6 % (11.6-14.4); White Blood Count 8.2 K/mm3 (4.8-10.8)
[2020-11-20 05:54] LABS: Alanine Aminotransferase 22 U/L (14-59); Albumin Level 3.1 g/dL (3.4-5.0); Alkaline Phosphatase 40 U/L (46-116); Anion Gap 9 mmol/L (8-16); Aspartate Amino Transferase 18 U/L (15-37); Bilirubin,Total 0.6 mg/dL (0.00-1.00); Blood Urea Nitrogen 6 mg/dL (7-18); Calcium 7.7 mg/dL (8.5-10.1); Carbon Dioxide 27 mmol/L (21-32); Chloride 98 mmol/L (98-108); Estimated CRCL calculation 43 ml/min; Estimated Glomerular Filt Rate > 60; Glucose 99 mg/dL (70-99); Magnesium 1.6 mg/dL (1.8-2.4); Osmolality Calculated 275 mOsm/kg (285-295); Potassium 3.1 mmol/L (3.5-5.1); Sodium 134 mmol/L (136-145); Total Protein 5.9 g/dL (6.4-8.2)
--- NOTE | 2020-11-20 06:15 | PC.NURSE ---
Patient's temp now 100.7. Washcloths to neck cooled down again.
[2020-11-20] MEDS: CHOLECALCIFEROL 1,000 UNITS TABLET 5000 UNITS PO (08:02)
[2020-11-20] MEDS: DOCUSATE SODIUM 100 MG CAPSULE PO (08:02)
[2020-11-20] MEDS: SODIUM CHLORIDE 1 GM TABLET PO (08:02)
[2020-11-20] MEDS: MEGESTROL ACETATE (*CHEMO) 20 MG TABLET PO (08:02)
[2020-11-20] MEDS: lisinopriL 5 MG TABLET PO (08:03)
[2020-11-20] MEDS: MAGNESIUM OXIDE 400 MG TABLET PO (10:45)
[2020-11-20] MEDS: POTASSIUM CHLORIDE 20 MEQ TABLET 40 MEQ PO (10:45)
--- NOTE | 2020-11-20 10:54 | PC.NURSE ---
0910 Received call from Marion at [facility] in reference to help prepare patients discharge plan. --Sanjuana Gonzalez RN
--- NOTE | 2020-11-20 13:17 | PM.DS ---
DS: Admitting Diagnosis Admitting Diagnosis Admitting Diagnosis: Confusion, altered mental status, multiple falls <SILVINO Jackson - Last Filed: 11/21/20 07:09> DS: Discharge Diagnosis Discharge Diagnosis (1) Acute hyponatremia: Code(s): E87.1 - Hypo-osmolality and hyponatremia <SILVINO Jackson - Last Filed: 11/21/20 07:09> Status: Acute <SILVINO Jackson - Last Filed: 11/21/20 07:09> Assessment and Plan: Etiology unknown could possibly be due to medication mirtazapine NA -->129-->130-->129--> 134baseline appears to be 140 Continue normal saline Continue sodium tabs 1 g twice daily Will call primary care physician's office to see if patient has started on any new medication mirtazapine discontinue believed to be possible source of hyponatremia. Sodium improved once discontinued <SILVINO Jackson - Last Filed: 11/21/20 07:09> (2) Balance problem: Code(s): R26.89 - Other abnormalities of gait and mobility <SILVINO Jackson - Last Filed: 11/21/20 07:09> Status: Acute <SILVINO Jackson - Last Filed: 11/21/20 07:09> Assessment and Plan: 11/18/2020 Pt working with PT/OT for balance, stamina, strength, ADLs <SILVINO Jackson - Last Filed: 11/21/20 07:09> (3) Dysphagia: Qualifiers: Dysphagia type: unspecified Qualified Code(s): R13.10 - Dysphagia, unspecified <SILVINO Jackson - Last Filed: 11/21/20 07:09> Code(s): R13.10 - Dysphagia, unspecified <SILVINO Jackson - Last Filed: 11/21/20 07:09> Status: Acute <SILVINO Jackson - Last Filed: 11/21/20 07:09> Assessment and Plan: 11/18/2020 witnessed Pt with throat pain right after swallowing a small bite of her lunch, Pt states this has gone on for 10-15 years, She has never told her PCP, Ordered ST Swallow evaluation, Pt states she has not been eating much lately According to patient's son she has had a history of esophageal stricture, no intervention needed nor any EGDs completed Bedside swallow eval indicates that patient should have a mechanical diet also recommend that a barium swallow be completed. Barium swallow pending <SILVINO Jackson - Last Filed: 11/21/20 07:09> (4) Abdominal pain: Qualifiers: Abdominal location: lower abdomen, unspecified Qualified Code(s): R10.30 - Lower abdominal pain, unspecified <SILVINO Jackson - Last Filed: 11/21/20 07:09> Code(s): R10.9 - Unspecified abdominal pain <SILVINO Jackson - Last Filed: 11/21/20 07:09> Status: Acute <SILVINO Jackson - Last Filed: 11/21/20 07:09> Assessment and Plan: 11/18/2020 Lower abdominal pain with palpation, obtaining KUB, Pt states no BM in about 1 week, firm lower abdomen Abdominal x-ray indicates moderate volume of stool in colon normal bowel pattern CT of the abdomen pelvis and chest no significant findings <SILVINO Jackson - Last Filed: 11/21/20 07:09> (5) Constipation: Code(s): K59.00 - Constipation, unspecified <SILVINO Jackson - Last Filed: 11/21/20 07:09> Status: Acute <SILVINO Jackson - Last Filed: 11/21/20 07:09> Assessment and Plan: 11/18/2020 KUB shows distended and containing stool, ordered suppository and RN reports 1 BM repeat Abdominal x-ray indicates moderate volume of stool in colon with normal bowel patterns Started daily docusate and senna, one-time MiraLAX with as needed MiraLAX ordered <SILVINO Jackson - Last Filed: 11/21/20 07:09> (6) Anxiety and depression: Code(s): F41.9 - Anxiety disorder, unspecified; F32.9 - Major depressive disorder, single episode, unspecified <SILVINO Jackson - Last Filed: 11/21/20 07:09> Status: Acute <SILVINO Jackson - Last Filed: 11/21/20 07:09> Assessment and Plan:
--- NOTE | 2020-11-20 14:04 | PC.NURSE ---
[address] to [facility] for further evaluation. Report called to Archana nurse at [facility]. Patient will be admitted to [facility] room 325. --Sanjuana Gonzalez RN
--- NOTE | 2020-11-20 14:04 | PC.NURSE ---
[facility] called for transfer, no transfer trucks available today, courtney called and will page out for transfer
--- NOTE | 2020-11-20 14:33 | PC.NURSE ---
1430 Patient left via stretcher in care of [facility]. Patient to be admitted to [facility] room 325. Patient's daughter, Sherron, took all of patient's belongings with her. Saline lock in left AC intact and dry. Flowers cath in place, patent. --Evonne CAMARENA
[2020-11-22 16:20] LABS: Pneumococcal Antigen Urine Not Detected (Not Detected)
[2020-11-24 03:59] LABS: Legionella pneumophila Ag Ur Not Detected (Not Detected)
== END 2020-11-20 14:30 | disposition short-term general hospital (02) | DRG 640 ==
LOC: CHSED 04:17 → CHS2ND 06:32
PROVIDERS: Emergency Medicine; Nurse Practitioner; Nurse Practitioner Family; Admitting Provider Emergency Medicine; Emergency Provider Emergency Medicine; PCP Nurse Practitioner Family; Visit Provider Emergency Medicine
DX: E87.1 Hypo-osmolality and hyponatremia (principal); G93.41 Metabolic encephalopathy; H53.2 Diplopia; R26.81 Unsteadiness on feet; R50.9 Fever, unspecified; R13.10 Dysphagia, unspecified; K59.00 Constipation, unspecified; E78.5 Hyperlipidemia, unspecified; E55.9 Vitamin D deficiency, unspecified; E03.9 Hypothyroidism, unspecified; K76.0 Fatty (change of) liver, not elsewhere classified; K44.9 Diaphragmatic hernia without obstruction or gangrene; K40.20 Bilateral inguinal hernia, without obstruction or gangrene, not specified as recurrent; G47.00 Insomnia, unspecified; F41.9 Anxiety disorder, unspecified; T43.025A Adverse effect of tetracyclic antidepressants, initial encounter
CPT/HCPCS: 36415; 70450; 70551; 71045; 71260; 72125; 74018; 74177; 80053; 80307; 81001; 82140; 83605; 83690; 83735; 84443; 84484; 85025; 85027; 85610; 85730; 87040; 87086; 87426; 87449; 87498; 87804; 87899; 92610; 93005; 94640; 96361; 96365; 97110; 97161; 97165; 97530; 97535; 99285; A9270; C9803; G0378; J0696; J1200; J2543; J7030; Q9967; U0003; U0005

== ENCOUNTER 2020-11-20 16:03 | Inpatient (IN) | payer MEDICARE, SELFPAY ==
--- NOTE | ~2020-11-20 | CT_ITS ---
EXAMINATION: CTA brain carotid DATE: 11/23/2020 11:02 INDICATION: Metabolic encephalopathy. TECHNIQUE: Computed tomographic angiography (CTA) of the head was performed without and with 100 mL O mnipaque-350 intravenous contrast. CTA of the neck was performed with intravenous contrast. Automated exposure control and iterative reconstruction technique were employed. The dose-length product was 1 940.12 mGy-cm. Maximum intensity projection and volume rendered 3D-reconstructions were created by jo cuevas technologist on a separate workstation. COMPARISON: Head CT 11/19/2020, brain MRI 11/20/2020 FINDINGS: HEAD CTA: There are scattered areas of low attenuation in the cerebral white matter and prince. There i s no intracranial hemorrhage, acute infarction, or abnormal intracranial mass lesion. The ventricles are normal in size. There is mild mucosal thickening in the paranasal sinuses. The mastoid air cells are normal. The orbits are normal. The vertebral arteries are codominant. There is no significant ravi nosis of basilar artery or the posterior cerebral arteries. The posterior communicating arteries are normal. There is no significant stenosis of the intracranial internal carotid arteries or anterior or middle cerebral arteries. Anterior communicating artery is normal. There is no aneurysm. NECK CTA: There is mild scarring at the lung apices. There are nodules in the thyroid measuring up to 9 mm, likely not clinically significant. There is no significant stenosis of the vertebral arteries. There is plaque in the proximal internal carotid arteries. There is 0% stenosis of the proximal righ t internal carotid artery relative to normal distal artery lumen diameter (NASCET criteria). There is 0% stenosis of the proximal left internal carotid artery relative to normal distal artery lumen diam eter. IMPRESSION: 1. Moderate nonspecific cerebral white matter disease and pontine disease, which likely represents ch ronic small vessel ischemic disease. 2. No aneurysm or significant intracranial arterial stenosis. 3. 0% stenosis of the proximal internal carotid arteries relative to normal distal artery lumen diame ters (NASCET criteria). Reviewed, dictated and finalized at location A. IMPRESSION: 1. Moderate nonspecific cerebral white matter disease and pontine disease, whic h likely represents chronic small vessel ischemic disease. 2. No aneurysm or significant intracranial arterial stenosis. 3. 0% stenosis of the proximal internal carotid arteries relative to normal dis joseph artery lumen diameters (NASCET criteria).
--- NOTE | ~2020-11-20 | XR_ITS ---
EXAMINATION: XR lumbar puncture diagnostic DATE: 11/21/2020 16:04 INDICATION: Encephalopathy TECHNIQUE: The procedure including the risks and benefits was discussed with the patient. Risks discu ssed included spinal headache, cerebrospinal fluid leak, bleeding, and infection. The patient underst ood the risks and agreed to proceed. A timeout was performed to verify the patient's name, date of , and procedure to be performed. The skin overlying the L3-L4 level was prepped and draped in usual sterile fashion. Subcutaneous 1% lidocaine was used for local anesthesia. A 22 gauge spinal n eedle was advanced under fluoroscopic guidance. The needle was removed and the entry site was cleaned and dressed. There were no immediate complications. The patient was taken to the nursing area for o bservation. FINDINGS: Real-time fluoroscopy demonstrates the needle at the L3-L4 level. Opening pressure was 21 c m water. (Normal range is variably defined as 6-20 cm water and up to 25 cm water in obese patients. Pressure >25 cm water is one of the modified Dandy criteria for idiopathic intracranial hypertension) . 14 mL of clear fluid with pinkish orange-tinge was collected in 4 tubes. IMPRESSION: 1. Successful fluoro-guided lumbar puncture. Reviewed, dictated and finalized at location A.
--- NOTE | ~2020-11-20 | XR_ITS ---
EXAMINATION: XR chest PICC line EXAM DATE: 11/25/2020 13:50 INDICATION: PICC line placement. TECHNIQUE: Portable AP frontal chest x-ray was obtained. Comparison is made to prior examination from 11/19/2020. FINDINGS: There is a right-sided PICC line with tip projecting over the cavoatrial junction. Small a mount of left basilar opacity probably atelectasis. The lungs are otherwise clear. There are no pleu ral effusions. The cardiomediastinal silhouette is within normal limits. There is no pneumothorax s uspected. There are mild bony degenerative changes. IMPRESSION: 1. Left basilar opacity probably subsegmental atelectasis. 2. PICC line in position. Reviewed, dictated and finalized at location A.
--- NOTE | 2020-11-20 15:59 | ADMGEN ---
This patient, Anay Goins, was admitted to [facility] Room 325-02. Patient/family oriented to hospital policies and general routines including ID bracelet, bed and alarms, visiting hours, pain management, procedures, bathroom and other care routines, personal items, smoking policy, room service/diet, and visiting hours. Information on how to activate the Rapid Response Team has been discussed. Patient/Family are encouraged to report perceived risks to care and to ask questions if they do not understand what they are told or what they should do.
[2020-11-20 16:05] VITALS: BP 159/67; PULSE 81; RESP 16; TEMP 37.2; O2SAT 96
[2020-11-20 16:30] LABS: Hematocrit 33.5 % (37.0-47.0); Hemoglobin 11.4 g/dL (12.0-15.0); Mean Corpuscular Hemoglobin 29.1 pg (26-34); Mean Corpuscular Volume 85.5 fl (80-100); Mean Platelet Volume 8.6 fl (7.4-10.4); Platelet Count Result 263 k/mm3 (150-375); Red Blood Count 3.92 M/mm3 (4.2-5.4); Red Cell Distribution Width 13.4 % (11.5-14.5)
[2020-11-20 16:52] LABS: Lactic Acid Reflex 0.6 mmol/L (0.7-2.1)
[2020-11-20 16:55] LABS: Alanine Aminotransferase 15 U/L (4-35); Albumin Level 3.2 g/dL (3.5-5.1); Alkaline Phosphatase 33 U/L (38-126); Anion Gap 5 mmol/L (8-16); Aspartate Amino Transferase 25 U/L (14-36); Bilirubin,Total 0.5 mg/dL (0.2-1.3); Blood Urea Nitrogen 8 mg/dL (7-17); CRP 0.6 mg/dL (<1.0); Carbon Dioxide 28 mmol/L (22-30); Chloride 100 mmol/L (98-107); Estimated Glomerular Filt Rate > 60; Glucose 98 mg/dL (65-105); Magnesium 1.7 mg/dL (1.6-2.3); Potassium 3.2 mmol/L (3.4-5.0); Sodium 133 mmol/L (137-145)
[2020-11-20 17:00] VITALS: BMI 22.1
--- NOTE | 2020-11-20 17:00 | PM.IMHP ---
H&P: HPI History of Present Illness Date/Time: 11/20/20 17:00 Chief Complaint: Fever, weakness, altered mental status. Narrative: This is a pleasant 80-year-old female with hypertension, hyperlipidemia, and anxiety who is being directly admitted to the hospital from [facility] for further evaluation of fever, weakness, and altered mental status. The patient is a fair historian but her daughter at bedside provides additional information, with the patient's permission. Prior to 1 week ago the patient was living in her own home and was independent of all ADLs. Within the last week she has just started to not feel well with progressive weakness to the point where she had 4 falls while trying to get out of the bathtub last Wednesday night. She struck the back of her head in 1 of the falls but did not have any loss of consciousness however she developed nausea and vomiting shortly thereafter. Her daughter came to stay with her and took her to the emergency department at approximately 03:30 on Wednesday morning for evaluation at which time her sodium level was a bit low and she was hydrated and discharged home. Unfortunately she did not feel any better on discharge and later that evening she began having hallucinations, picking at things in the air and seeing bugs on the keenan and was so confused that she stood up to urinate and wet in her pants. Once again she was taken to the ED where she was admitted for hyponatremia and ?balance disturbance.? She received some fluid while she was there and was also started on sodium tablets 1 gram twice daily. I do not see that she had any workup to help determine the cause of the hyponatremia, however. Over the next 24 hours she continued to have issues with confusion and sustained another fall when getting out of bed. A Flowers catheter was inserted due to urinary retention and meclizine and diphenhydramine were stopped due to their anticholinergic properties. Given ongoing confusion an MRI of the brain was ordered today and was unremarkable. She is now being transferred to [facility] for further evaluation of ongoing confusion and fever, for which she was given a dose of Rocephin and Zosyn although no source of infection was found. At the time of my evaluation the patient is alert and oriented x4 but exhibit some bizarre behavior such as restlessness and moaning. She complains of pain in the posterior occiput which she blames on her fall on Wednesday evening. She also notes intermittent binocular diplopia, hallucinations, and anxiety. No sinus congestion, rhinorrhea, otalgia, or odynophagia. She denies rash. No further nausea or vomiting. No diarrhea or dysuria. She has not had any new medications added to her regimen since mirtazapine was added several months ago for insomnia. At the outside facility diphenhydramine was given to help her sleep and sodium tablets were also ordered for mild hyponatremia. Review of Systems Review of Systems: Narrative: Twelve systems were reviewed with pertinent positives and negatives as per HPI. Except as documented, all other systems were reviewed and are negative. [facility] Past Medical History Medical History (Updated 11/21/20 @ 00:07 by Paloma Kamara PA-C) Anxiety Arthritis Benign paroxysmal positional vertigo Colon polyp Hyperlipidemia Hypertension Hypothyroidism Insomnia Shingles Vitamin D deficiency Surgical History Surgical History (Updated 11/20/20 @ 23:53 by Paloma Kamara PA-C) History of bladder suspension procedure History of hysterectomy Status post Mohs surgery Resection of basal cell carcinoma from the nose. Family History Family History (Updated 11/20/20 @ 23:55 by Paloma Kamara PA-C) Father Pancreatic cancer Cerebrovascular accident Mother Cerebrovascular accident Sibling Parkinsons disease Sibling Lung cancer Daughter Dyslipidemia Social History Social History (Updated 11/20/20 @ 23:56 by Nacho
[2020-11-20] MEDS: AMPICILLIN 2 GM/NS 100 ML 2 GM/100 ML BAG IVPB ×2 (17:19→23:58)
[2020-11-20 18:22] LABS: Erythrocyte Sedimentation Rate 20 mm/hr (0-20)
--- NOTE | 2020-11-20 18:33 | ECG_ITS ---
Measurements Intervals [place] Rate: 92 P: 51 CA: 157 QRS: -57 QRSD: 102 T: 81 QT: 344 QTc: 427 Interpretive Statements SINUS RHYTHM LEFT ANTERIOR FASCICULAR BLOCK NONSPECIFIC ST & T-WAVE ABNORMALITY- ANTEROLAT/HIGH LAT LEADS BASELINE ARTIFACT- I, II, III, AVL ABNORMAL ECG Electronically Signed On 11-21-2020 7:06:58 CDT by Rocky Giron D.O.
[2020-11-20 20:00] VITALS: PULSE 93
[2020-11-20] MEDS: QUEtiapine FUMARATE 12.5 MG TABLET PO (20:15)
[2020-11-20 22:00] VITALS: BP 146/73; PULSE 94; RESP 22; TEMP 37.4; O2SAT 98
[2020-11-21] VITALS (17 sets, daily range): BP systolic 118–173; BP diastolic 58–86; PULSE 82–118; RESP 18–26; TEMP 36.4–39.5; O2SAT 94–98
[2020-11-21] MEDS: ACETAMINOPHEN 325 MG TABLET 650 MG PO (00:34)
[2020-11-21] MEDS: POTASSIUM CHLORIDE 20 MEQ TABLET PO (00:49)
[2020-11-21] MEDS: MELATONIN 5 MG TABLET PO ×2 (00:50→20:46)
[2020-11-21 00:51] LABS: Alanine Aminotransferase 15 U/L (4-35); Albumin Level 3.6 g/dL (3.5-5.1); Alkaline Phosphatase 38 U/L (38-126); Anion Gap 8 mmol/L (8-16); Aspartate Amino Transferase 33 U/L (14-36); Bilirubin,Total 0.4 mg/dL (0.2-1.3); Blood Urea Nitrogen 9 mg/dL (7-17); Carbon Dioxide 27 mmol/L (22-30); Chloride 96 mmol/L (98-107); Estimated CRCL calculation 58 ml/min; Estimated Glomerular Filt Rate > 60; Glucose 93 mg/dL (65-105); Magnesium 1.6 mg/dL (1.6-2.3); Potassium 3.1 mmol/L (3.4-5.0); Sodium 131 mmol/L (137-145)
[2020-11-21 00:53] LABS: Basophils Percent Auto 0.3 % (0.2-1.2); Eosinophils Percent Auto 0.4 % (0-4.4); Hematocrit 36.1 % (37.0-47.0); Hemoglobin 12.3 g/dL (12.0-15.0); Immature Granulocyte Absolute 0.03 K/mm3 (0.00-0.031); Immature Granulocyte Percent A 0.3 % (0-0.5); Lymphocytes Absolute Auto 1.48 K/mm3 (0.9-3.2); Lymphocytes Percent Auto 15.5 % (18.3-44.2); Mean Corpuscular HGB Conc 34.1 g/dl (32-36); Mean Corpuscular Hemoglobin 29.2 pg (26-34); Mean Corpuscular Volume 85.7 fl (80-100); Mean Platelet Volume 8.7 fl (7.4-10.4); Monocytes Absolute Auto 0.5 K/mm3 (0.1-0.6); Monocytes Percent Auto 5.4 % (2.6-8.5); Neutrophils Absolute Auto 7.4 K/mm3 (1.3-6.7); Neutrophils Percent Auto 78.1 % (45.5-73.1); Platelet Count Result 279 k/mm3 (150-375); Red Blood Count 4.21 M/mm3 (4.2-5.4); Red Cell Distribution Width 13.4 % (11.5-14.5); White Blood Count 9.5 K/mm3 (4.5-10.0)
[2020-11-21] MEDS: AMPICILLIN 2 GM/NS 100 ML 2 GM/100 ML BAG IVPB ×6 (02:33→20:40)
[2020-11-21 06:40] LABS: Ammonia < 9 umol/L (9-30)
[2020-11-21 07:11] LABS: Estimated CRCL calculation 50 ml/min; Estimated Glomerular Filt Rate > 60
--- NOTE | 2020-11-21 11:07 | WPDNEURCNPN ---
Assessment and Plan Assessment and plan (1) Metabolic encephalopathy: Code(s): G93.41 - Metabolic encephalopathy Status: Acute Additional Plan encephalopathy Consult date: 11/21/20 Time Seen: 12:00 HPI: Anay Goins is a 80 year old female admitted to the hospital for the complaints of change in the mental status with generalized weakness and fever in addition to comorbid could condition of 1. Hypertension 2. Hyperlipidemia 3. Anxiety she has been weaker with history of recurrent falls she recently had the visit to the ER hallucination and subsequently balance difficulties . does have ongoing history of arthritis, benign Merle vertigo, anxiety, hypertension, hyper thyroidism, and vitamin D deficiency, evaluation documented normal CBC, normal coagulation studies Review of Systems Review of Systems: All systems reviewed & are unremarkable except as noted in HPI and below PMFSH Past Medical History Medical History Anxiety Arthritis Benign paroxysmal positional vertigo Colon polyp Hyperlipidemia Hypertension Hypothyroidism Insomnia Shingles Vitamin D deficiency Surgical History Surgical History History of bladder suspension procedure History of hysterectomy Status post Mohs surgery Resection of basal cell carcinoma from the nose. Family History Family History Father Pancreatic cancer Cerebrovascular accident Mother Cerebrovascular accident Sibling Parkinsons disease Sibling Lung cancer Daughter Dyslipidemia Social History Social History Social History: Surrogate decision maker: Daughter Sherron. Code status: Full code. Smoking status: Never smoker Alcohol intake: never Substance use: never Substance use type: does not use Additional living arrangements comments: The patient is and lives in her own home in [place]. She is independent of all activities of daily living. She has 3 grown children. Additional occupation/education comments: Homemaker. Gender identity (if verbalized by the patient): Female Spiritual care concerns: No Meds Home Medications and Allergies Home Medications Medication Instructions Recorded Confirmed Type cholecalciferol (vitamin D3) 125 125 mcg PO DAILY 04/01/20 11/20/20 History mcg (5,000 unit) capsule rosuvastatin 10 mg tablet 5 mg PO DAILY tablet 08/27/20 11/20/20 History escitalopram oxalate 20 mg tablet 10 mg PO DAILY #30 tablet 09/30/20 11/20/20 Rx lisinopril 5 mg PO DAILY 11/17/20 11/20/20 History melatonin 6 mg PO HS PRN 11/17/20 11/20/20 History ondansetron HCl [Zofran] 4 mg PO Q8H PRN #7 tablet 11/17/20 11/20/20 Rx Allergies Allergy/AdvReac Type Severity Reaction Status Date / Time No Known Allergies Allergy Verified 09/30/20 07:59 Vital Signs Vital Signs - 24 hr 11/20/20 16:05 11/20/20 20:00 11/20/20 22:00 Temperature 37.2 C 37.4 C Pulse Rate 81 93 94 Respiratory Rate 16 22 H Blood Pressure 159/67 H 146/73 H Pulse Oximetry 96 98 11/21/20 00:00 11/21/20 00:34 11/21/20 02:00 Temperature 39.5 C H 39.5 C H 36.9 C Pulse Rate 100 Respiratory Rate 20 Blood Pressure 172/86 H Pulse Oximetry 95 11/21/20 02:11 11/21/20 04:00 11/21/20 06:00 Temperature 36.9 C 36.4 C Pulse Rate 82 84 Respiratory Rate 24 H Blood Pressure 138/58 L Pulse Oximetry 94 11/21/20 08:00 Temperature Pulse Rate 86 Respiratory Rate Blood Pressure Pulse Oximetry Exam Const: General: cooperative, awake, anxious and confusion Nutritional Appearance: average body habitus Orientation/consciousness: oriented to person HENMT: Head: normal to inspection and normocephalic Ears: hearing grossly normal bilaterally General nose exam: Normal external nose present Face and sinus: normal f
--- NOTE | 2020-11-21 11:24 | WPDNEUROPN ---
Progress Note: A&P Assessment and Plan (1) Metabolic encephalopathy: Code(s): G93.41 - Metabolic encephalopathy Status: Acute Additional Plan ? vasculitis Review of Systems Review of Systems: All systems reviewed & are unremarkable except as noted in HPI and below Exam Const: General: cooperative, alert and awake Nutritional Appearance: average body habitus Orientation/consciousness: oriented to person Limitations: physical limitations Eyes: General: appearance normal, both eyes and all related structures Neck: Neck: full ROM Resp: Effort & Inspection: normal respiratory effort Neuro: General: oriented to person Cranial nerves: Yes CN's II-XII intact bilaterally Cognition (Neuro): normal cognition Gait exam (Neuro): Unable to assess gait Objective Data Vital Signs Vital Signs: Vital Signs - 24 hr 11/20/20 16:05 11/20/20 20:00 11/20/20 22:00 Temperature 37.2 C 37.4 C Pulse Rate 81 93 94 Respiratory Rate 16 22 H Blood Pressure 159/67 H 146/73 H Pulse Oximetry 96 98 11/21/20 00:00 11/21/20 00:34 11/21/20 02:00 Temperature 39.5 C H 39.5 C H 36.9 C Pulse Rate 100 Respiratory Rate 20 Blood Pressure 172/86 H Pulse Oximetry 95 11/21/20 02:11 11/21/20 04:00 11/21/20 06:00 Temperature 36.9 C 36.4 C Pulse Rate 82 84 Respiratory Rate 24 H Blood Pressure 138/58 L Pulse Oximetry 94 11/21/20 08:00 Temperature Pulse Rate 86 Respiratory Rate Blood Pressure Pulse Oximetry Intake/Output Intake/Output: Intake & Output 11/18/20 11/19/20 11/20/20 11/21/20 23:59 23:59 23:59 23:59 Intake Total 690 410 Output Total 200 1200 Balance 490 -790 Meds/Results Medications: Active Medications Generic Name Dose Route Start Last Admin Trade Name Freq PRN Reason Stop Dose Admin Acetaminophen 650 mg 11/21/20 00:13 11/21/20 00:34 Acetaminophen 325 Mg Tablet PO 650 mg Q6H PRN Administration Mild Pain (1-3) or Fever Ceftriaxone Sodium 2 gm in 100 mls @ 200 mls/hr 11/20/20 18:00 11/21/20 06:02 Rocephin 2 Gm/D5w 100 Ml IVPB 200 mls/hr Q12H SERAFIN Administration Ampicillin Sodium 2 gm in 100 mls @ 200 mls/hr 11/20/20 17:00 11/21/20 09:27 Ampicillin 2 Gm/Ns 100 Ml IVPB 200 mls/hr Q4H SERAFIN Administration Acyclovir Sodium 500 mg/ 110 mls @ 110 mls/hr 11/20/20 22:00 11/21/20 07:30 Dextrose IVPB 110 mls/hr Q8H SERAFIN Administration Vancomycin HCl 1,000 mg in 250 mls @ 250 mls/hr 11/20/20 19:00 11/20/20 21:10 Vancomycin 1,000 Mg/D5w 250 Ml IVPB Infused Q18H SERAFIN Infusion Melatonin 5 mg 11/21/20 00:20 11/21/20 00:50 Melatonin 5 Mg Tablet PO 5 mg HS SERAFIN Administration Quetiapine Fumarate 12.5 mg 11/20/20 21:00 11/20/20 20:15 Quetiapine Fumarate 12.5 Mg Tablet PO 12.5 mg HS SERAFIN Administration Labs Labs: Laboratory Results - last 24 hr 11/20/20 11/20/20 11/20/20 16:21 16:23 16:23 WBC 8.0 RBC 3.92 L Hgb 11.4 L Hct 33.5 L MCV 85.5 MCH 29.1 MCHC 34.0 RDW 13.4 Plt Count 263 MPV 8.6 Immature Gran % (Auto) Neut % (Auto) Lymph % (Auto) [place] % (Auto) Eos % (Auto) Baso % (Auto) Lymph # (Auto) [place] # (Auto) Eos # (Auto) Baso # (Auto) Abs Immat Gran (auto) Absolute Neuts (auto) Absolute Nucleated RBC Nucleated RBC % ESR 20 Sodium 133 L Potassium 3.2 L Chloride 100 Carbon Dioxide 28 Anion Gap 5 L BUN 8 Creatinine 0.70 Estim Creat Clear Calc Not Reportable Estimated GFR > 60 Glucose 98 Lactic Acid Calcium 8.0 L Magnesium 1.7 Total Bilirubin 0.5 AST 25 ALT 15 Alkaline Phosphatase 33 L Ammonia C-Reactive Protein 0.6 Total Protein 6.0 L Albumin 3.2 L Vitamin B12 897.0 TSH (Reflex) 11/20/20 11/20/20 11/21/20 16:23 16:23 00:32 WBC 9.5 RBC 4.21 Hgb 12.3 Hct 36.1 L MCV 85.7 MCH 29.2 MCHC 34.1 RDW
[2020-11-21 13:04] LABS: Rapid Plasma Reagin Non-Reactive (NonReactive)
--- NOTE | 2020-11-21 13:09 | PM.IMPN ---
Progress Note: A&P Assessment and Plan (1) Metabolic encephalopathy: Code(s): G93.41 - Metabolic encephalopathy Status: Acute Assessment and Plan: Most likely metabolic encephalopathy due to underlying infection given fever. No hallucinations on going fever less confused today. Pt to have LP. Pt seen by neurology. Pt is on IV abx rocephin, vancomycin and ampicillin for encephalopathy. Neurology rounding, awaiting ID. (2) Fever: Code(s): R50.9 - Fever, unspecified Status: Acute Assessment and Plan: Temperature up again, tylenol IV PRN (3) Electrolyte abnormality: Code(s): E87.8 - Other disorders of electrolyte and fluid balance, not elsewhere classified Status: Acute Assessment and Plan: Mild electrolyte abnormalities including hyponatremia, hypokalemia, and hypomagnesemia. Correct levels accordingly. (4) Hypertension: Code(s): I10 - Essential (primary) hypertension Status: Acute Assessment and Plan: Blood pressures is high continue to watch (5) Hyperlipidemia: Code(s): E78.5 - Hyperlipidemia, unspecified Status: Acute Assessment and Plan: Continue statin (6) Anxiety: Code(s): F41.9 - Anxiety disorder, unspecified Status: Acute Assessment and Plan: Escitalopram on hold Subjective Date/time seen: 11/21/20 13:09 Interval history: 80-year-old female with hypertension, hyperlipidemia, and anxiety who [place] [facility] [place] fever, weakness, and altered mental status. Pt has high RAJINDER pt is awaiting LP. Much improvement with IV abx, pt still spiking fevers. Pt seen by neurology awaiting to see ID. Pt answering questions and is oriented x3. Review of Systems Review of Systems: ROS unobtainable: Yes unobtainable due to medical condition Exam Narrative: Exam Narrative: General: Ill-appearing elderly female, tired drowsy, small pupils but reactive Neck: Supple. No carotid bruits. Respiratory: Lungs are clear to auscultation bilaterally. Cardiovascular: Regular rate and rhythm with S1-S2. Gastrointestinal: Abdomen is soft, nontender, and nondistended with positive bowel sounds. Genitourinary: Flowers catheter draining clear yellow urine. Skin: Warm and dry. No rash or lesions on limited exam. Extremities: No cyanosis, clubbing, or edema. Radial and pedal pulses intact. Neurological: Alert and oriented x4 Objective Data Vital Signs Vital Signs: Vital Signs - 24 hr 11/20/20 16:05 11/20/20 20:00 11/20/20 22:00 Temperature 37.2 C 37.4 C Pulse Rate 81 93 94 Respiratory Rate 16 22 H Blood Pressure 159/67 H 146/73 H Pulse Oximetry 96 98 11/21/20 00:00 11/21/20 00:34 11/21/20 02:00 Temperature 39.5 C H 39.5 C H 36.9 C Pulse Rate 100 Respiratory Rate 20 Blood Pressure 172/86 H Pulse Oximetry 95 11/21/20 02:11 11/21/20 04:00 11/21/20 06:00 Temperature 36.9 C 36.4 C Pulse Rate 82 84 Respiratory Rate 24 H Blood Pressure 138/58 L Pulse Oximetry 94 11/21/20 08:00 11/21/20 13:03 Temperature 37.9 C H Pulse Rate 86 Respiratory Rate Blood Pressure 173/73 H Pulse Oximetry Intake/Output Intake/Output: Intake & Output 11/18/20 11/19/20 11/20/20 11/21/20 23:59 23:59 23:59 23:59 Intake Total 690 720 Output Total 200 1200 Balance 490 -480 Meds/Results Medications: Active Medications Generic Name Dose Route Start Last Admin Trade Name Freq PRN Reason Stop Dose Admin Acetaminophen 650 mg 11/21/20 00:13 11/21/20 00:34 Acetaminophen 325 Mg Tablet PO 650 mg Q6H PRN Administration Mild Pain (1-3) or Fever Ceftriaxone Sodium 2 gm in 100 mls @ 200 mls/hr 11/20/20 18:00 11/21/20 06:02 Rocephin 2 Gm/D5w 100 Ml IVPB 200 mls/hr Q12H SERAFIN Administration Ampicillin Sodium 2 gm in 100 mls @ 200 mls/hr 11/20/20 17:00
--- NOTE | 2020-11-21 14:05 | PCSTNOTE ---
ST attempted bedside swallow evaluation x2 but pt's been NPO for spinal tap; At 2pm RN was checking on timing of spinal tap. ST will re check pt after other pts @ approximately 1530.
[2020-11-21] MEDS: ONDANSETRON INJ 4 MG/2 ML VIAL IV PUSH (14:35)
[2020-11-21 14:54] LABS: INR 1.1; Prothrombin Time 14.5 Seconds (11.1-14.7)
--- NOTE | 2020-11-21 15:26 | PC.NURSE ---
Patient to X-ray per stretcher for lumbar puncture.
--- NOTE | 2020-11-21 15:44 | PCSTNOTE ---
Attempted bedside swallow eval again at 1535; according to pt's daughter, she just left for the lumbar puncture. ST will see pt tomorrow for the bedside swallow.
--- NOTE | 2020-11-21 16:06 | PC.NURSE ---
Patient returned from x-ray per stretcher.
[2020-11-21 16:20] LABS: Glucose CSF 39 mg/dL (40-70); Total Protein CSF 159 mg/dL (12-60)
[2020-11-21 16:52] LABS: Appearance CSF Hazy (Clear); CSF source CSF
[2020-11-21 16:54] LABS: Color CSF Other (Colorless); Lymphocytes CSF 96 % (40-80); Macrophages CSF 4; Neutrophils CSF 0 % (0-6); Nucleated Cell CSF 689 /uL (0-5); Red Blood Cell CSF 3931 (0-2)
[2020-11-21] MEDS: QUEtiapine FUMARATE 12.5 MG TABLET PO (20:46)
[2020-11-22] VITALS (13 sets, daily range): BP systolic 139–163; BP diastolic 62–80; PULSE 79–109; RESP 16–50; TEMP 36.7–38; O2SAT 90–95
[2020-11-22] MEDS: AMPICILLIN 2 GM/NS 100 ML 2 GM/100 ML BAG IVPB ×6 (01:49→20:16)
[2020-11-22 06:01] LABS: Hematocrit 33.5 % (37.0-47.0); Hemoglobin 11.3 g/dL (12.0-15.0); Mean Corpuscular HGB Conc 33.7 g/dl (32-36); Mean Corpuscular Hemoglobin 28.7 pg (26-34); Mean Platelet Volume 8.8 fl (7.4-10.4); Platelet Count Result 273 k/mm3 (150-375); Red Blood Count 3.94 M/mm3 (4.2-5.4); Red Cell Distribution Width 13.2 % (11.5-14.5); White Blood Count 9.1 K/mm3 (4.5-10.0)
[2020-11-22 06:12] LABS: Anion Gap 8 mmol/L (8-16); Blood Urea Nitrogen 14 mg/dL (7-17); Calcium 8.1 mg/dL (8.4-10.2); Carbon Dioxide 26 mmol/L (22-30); Chloride 97 mmol/L (98-107); Estimated CRCL calculation 50 ml/min; Estimated Glomerular Filt Rate > 60; Glucose 106 mg/dL (65-105); Potassium 3.1 mmol/L (3.4-5.0); Sodium 131 mmol/L (137-145)
[2020-11-22] MEDS: POTASSIUM CHLORIDE 20 MEQ PACKET (FOR LIQUID) 40 MEQ PO (09:31)
[2020-11-22] MEDS: ACETAMINOPHEN 325 MG TABLET 650 MG PO (12:19)
--- NOTE | 2020-11-22 12:37 | PCSTNOTE ---
Please refer to the Bedside Swallow Evaluation in the EMR. Please note, silent aspiration cannot be ruled out at bedside.
--- NOTE | 2020-11-22 13:45 | PM.IMPN ---
Progress Note: A&P Assessment and Plan (1) Metabolic encephalopathy: Code(s): G93.41 - Metabolic encephalopathy Status: Acute Assessment and Plan: Most likely metabolic encephalopathy or sepsis related. Pt is on IV rocephin, vancomycin and ampicillin for encephalopathy. Neurology rounding, awaiting ID. LP results reviwed. (2) Fever: Code(s): R50.9 - Fever, unspecified Status: Resolved Assessment and Plan: Fever resolved pt looks slightly improved (3) Electrolyte abnormality: Code(s): E87.8 - Other disorders of electrolyte and fluid balance, not elsewhere classified Status: Acute Assessment and Plan: Mild electrolyte abnormalities including hyponatremia, hypokalemia, and hypomagnesemia. Correct levels accordingly. (4) Hypertension: Code(s): I10 - Essential (primary) hypertension Status: Acute Assessment and Plan: Blood pressures is high continue to watch (5) Hyperlipidemia: Code(s): E78.5 - Hyperlipidemia, unspecified Status: Acute Assessment and Plan: Continue statin (6) Anxiety: Code(s): F41.9 - Anxiety disorder, unspecified Status: Acute Assessment and Plan: Escitalopram on hold Subjective Date/time seen: 11/22/20 13:45 Interval history: 80-year-old female with hypertension, hyperlipidemia, and anxiety who [place] [facility] [place] of fever, weakness, and altered mental status. Pt has high RAJINDER daughter denies any SLE or RA history . Pt sp LP. Much improvement with IV abx. Pt seen by neurology awaiting to see ID. Pt answering questions and is oriented x3. Review of Systems Review of Systems: All systems reviewed & are unremarkable except as noted in HPI and below Exam Narrative: Exam Narrative: General: Ill-appearing elderly female, more arousable Neck: Supple. No carotid bruits. Respiratory: Lungs are clear to auscultation bilaterally. Cardiovascular: Regular rate and rhythm with S1-S2. Gastrointestinal: Abdomen is soft, nontender, and nondistended with positive bowel sounds. Genitourinary: Flowers catheter draining clear yellow urine. Skin: Warm and dry. No rash or lesions on limited exam. Extremities: No cyanosis, clubbing, or edema. Radial and pedal pulses intact. Neurological: Alert and oriented x3 moving all 4 limbs Objective Data Vital Signs Vital Signs: Vital Signs - 24 hr 11/21/20 14:00 11/21/20 14:10 11/21/20 14:40 Temperature 38.0 C H 37.3 C 37.7 C H Pulse Rate 98 Respiratory Rate 18 Blood Pressure 173/73 H Pulse Oximetry 98 11/21/20 15:39 11/21/20 16:00 11/21/20 16:02 Temperature Pulse Rate 91 92 87 Respiratory Rate 26 H 21 H Blood Pressure 118/67 127/71 Pulse Oximetry 94 96 11/21/20 21:33 11/21/20 22:26 11/22/20 00:00 Temperature 37.3 C 38.0 C H Pulse Rate 91 91 Respiratory Rate 20 Blood Pressure 156/85 H Pulse Oximetry 97 11/22/20 00:38 11/22/20 00:59 11/22/20 01:44 Temperature 38.0 C H 37.6 C Pulse Rate 107 H Respiratory Rate Blood Pressure Pulse Oximetry 11/22/20 04:00 11/22/20 06:00 11/22/20 08:00 Temperature 36.7 C Pulse Rate 79 84 83 Respiratory Rate 50 H Blood Pressure 142/73 H Pulse Oximetry 95 11/22/20 12:00 Temperature Pulse Rate 102 H Respiratory Rate Blood Pressure Pulse Oximetry Intake/Output Intake/Output: Intake & Output 11/19/20 11/20/20 11/21/20 11/22/20 23:59 23:59 23:59 23:59 Intake Total 690 1690 410 Output Total 200 2150 950 Balance 490 -009 -881 Meds/Results Medications: Active Medications Generic Name Dose Route Start Last Admin Trade Name Carlton PRN Reason Stop Dose Admin Acetaminophen 650 mg 11/21/20 00:13 11/22/20 12:19 Acetaminophen 325 Mg Tablet PO 650 mg Q6H PRN Administration Mild Pain (1-3) or Fever Ceftriaxone
--- NOTE | 2020-11-22 14:50 | WPDNEUROPN ---
Progress Note: A&P Assessment and Plan (1) Metabolic encephalopathy: Code(s): G93.41 - Metabolic encephalopathy Status: Acute Additional Plan CTA order to rule out the possibility of vasculopathy Review of Systems Review of Systems: All systems reviewed & are unremarkable except as noted in HPI and below Exam Const: General: cooperative and no acute distress Nutritional Appearance: average body habitus Eyes: General: appearance normal, both eyes and all related structures Neck: Neck: full ROM Resp: Effort & Inspection: normal respiratory effort Neuro: General: oriented to person and moves all extremities Cranial nerves: Yes CN's II-XII intact bilaterally Speech: Abnormal speech present Motor exam (neuro): No tremor noted Sensory Exam: normal sensation Objective Data Vital Signs Vital Signs: Vital Signs - 24 hr 11/21/20 15:39 11/21/20 16:00 11/21/20 16:02 Temperature Pulse Rate 91 92 87 Respiratory Rate 26 H 21 H Blood Pressure 118/67 127/71 Pulse Oximetry 94 96 11/21/20 21:33 11/21/20 22:26 11/22/20 00:00 Temperature 37.3 C 38.0 C H Pulse Rate 91 91 Respiratory Rate 20 Blood Pressure 156/85 H Pulse Oximetry 97 11/22/20 00:38 11/22/20 00:59 11/22/20 01:44 Temperature 38.0 C H 37.6 C Pulse Rate 107 H Respiratory Rate Blood Pressure Pulse Oximetry 11/22/20 04:00 11/22/20 06:00 11/22/20 08:00 Temperature 36.7 C Pulse Rate 79 84 83 Respiratory Rate 50 H Blood Pressure 142/73 H Pulse Oximetry 95 11/22/20 12:00 11/22/20 14:00 Temperature 36.8 C Pulse Rate 102 H 90 Respiratory Rate 16 Blood Pressure 139/62 Pulse Oximetry 95 Intake/Output Intake/Output: Intake & Output 11/19/20 11/20/20 11/21/20 11/22/20 23:59 23:59 23:59 23:59 Intake Total 690 1690 410 Output Total 200 2150 950 Balance 046 -094 -933 Meds/Results Medications: Active Medications Generic Name Dose Route Start Last Admin Trade Name Freq PRN Reason Stop Dose Admin Acetaminophen 650 mg 11/21/20 00:13 11/22/20 12:19 Acetaminophen 325 Mg Tablet PO 650 mg Q6H PRN Administration Mild Pain (1-3) or Fever Ceftriaxone Sodium 2 gm in 100 mls @ 200 mls/hr 11/20/20 18:00 11/22/20 06:08 Rocephin 2 Gm/D5w 100 Ml IVPB 200 mls/hr Q12H SERAFIN Infusion Ampicillin Sodium 2 gm in 100 mls @ 200 mls/hr 11/20/20 17:00 11/22/20 13:15 Ampicillin 2 Gm/Ns 100 Ml IVPB 200 mls/hr Q4H SERAFIN Administration Acyclovir Sodium 500 mg/ 110 mls @ 110 mls/hr 11/20/20 22:00 11/22/20 14:29 Dextrose IVPB 110 mls/hr Q8H SERAFIN Administration Vancomycin HCl 1,000 mg in 250 mls @ 250 mls/hr 11/20/20 19:00 11/22/20 07:29 Vancomycin 1,000 Mg/D5w 250 Ml IVPB 150 mls/hr Q18H SERAFIN Administration Melatonin 5 mg 11/21/20 00:20 11/21/20 20:46 Melatonin 5 Mg Tablet PO 5 mg HS SERAFIN Administration Ondansetron HCl 4 mg 11/21/20 14:19 11/21/20 14:35 Ondansetron Inj 4 Mg/2 Ml Vial IV PUSH 4 mg Q8H PRN Administration Nausea And Vomiting Potassium Chloride 40 meq 11/22/20 09:00 11/22/20 09:31 Potassium Chloride 20 Meq Packet (For Liquid) PO 40 meq DAILY SERAFIN Administration Quetiapine Fumarate 12.5 mg 11/20/20 21:00 11/21/20 20:46 Quetiapine Fumarate 12.5 Mg Tablet PO 12.5 mg HS SERAFIN Administration Radiology Results: ITS Impressions Lumbar Puncture Fluoroscopy 11/21/20 16:28 IMPRESSION: 1. Successful fluoro-guided lumbar puncture. Labs Labs: Laboratory Results - last 24 hr 11/21/20 11/21/20 11/21/20 14:32 15:35 15:35 WBC RBC Hgb Hct MCV MCH MCHC RDW Plt Count MPV PT 14.5 INR 1.1 Sodium Potassium Chloride Carbon Dioxide Anion Gap BUN Creatinine Estim Creat Clear Calc Estimated GFR Glucose Calcium CSF Source Csf CSF Appearance Hazy A CSF Color Other A CSF RBC 3931 H CSF Tot Nuclea
--- NOTE | 2020-11-22 16:08 | WPDINFPN2 ---
Progress Note: A&P Assessment and Plan (1) Fever: Code(s): R50.9 - Fever, unspecified Status: Resolved Assessment and Plan: Fever and pleocytosis, suspect infectious encephalitis (although +RAJINDER, could this be lupus cerebritis?) REC Ctx / Vanc / Amp #3. Also ACV #3. Nothing to add in terms of studies. If no + micro and non infectious causes are excluded, then 14 days ACV anticipated. Subjective Date/time seen: 11/22/20 16:08 Objective Data Vital Signs Vital Signs: Vital Signs - 24 hr 11/21/20 21:33 11/21/20 22:26 11/22/20 00:00 Temperature 37.3 C 38.0 C H Pulse Rate 91 91 Respiratory Rate 20 Blood Pressure 156/85 H Pulse Oximetry 97 11/22/20 00:38 11/22/20 00:59 11/22/20 01:44 Temperature 38.0 C H 37.6 C Pulse Rate 107 H Respiratory Rate Blood Pressure Pulse Oximetry 11/22/20 04:00 11/22/20 06:00 11/22/20 08:00 Temperature 36.7 C Pulse Rate 79 84 83 Respiratory Rate 50 H Blood Pressure 142/73 H Pulse Oximetry 95 11/22/20 12:00 11/22/20 14:00 Temperature 36.8 C Pulse Rate 102 H 90 Respiratory Rate 16 Blood Pressure 139/62 Pulse Oximetry 95 Intake/Output Intake/Output: Intake & Output 11/19/20 11/20/20 11/21/20 11/22/20 23:59 23:59 23:59 23:59 Intake Total 690 1690 410 Output Total 200 2150 950 Balance 490 460 -428 Meds/Results Medications: Active Medications Generic Name Dose Route Start Last Admin Trade Name Freq PRN Reason Stop Dose Admin Acetaminophen 650 mg 11/21/20 00:13 11/22/20 12:19 Acetaminophen 325 Mg Tablet PO 650 mg Q6H PRN Administration Mild Pain (1-3) or Fever Ceftriaxone Sodium 2 gm in 100 mls @ 200 mls/hr 11/20/20 18:00 11/22/20 06:08 Rocephin 2 Gm/D5w 100 Ml IVPB 200 mls/hr Q12H SERAFIN Infusion Ampicillin Sodium 2 gm in 100 mls @ 200 mls/hr 11/20/20 17:00 11/22/20 13:15 Ampicillin 2 Gm/Ns 100 Ml IVPB 200 mls/hr Q4H SERAFIN Administration Acyclovir Sodium 500 mg/ 110 mls @ 110 mls/hr 11/20/20 22:00 11/22/20 14:29 Dextrose IVPB 110 mls/hr Q8H SERAFIN Administration Vancomycin HCl 1,000 mg in 250 mls @ 250 mls/hr 11/20/20 19:00 11/22/20 07:29 Vancomycin 1,000 Mg/D5w 250 Ml IVPB 150 mls/hr Q18H SERAFIN Administration Melatonin 5 mg 11/21/20 00:20 11/21/20 20:46 Melatonin 5 Mg Tablet PO 5 mg HS SERAFIN Administration Ondansetron HCl 4 mg 11/21/20 14:19 11/21/20 14:35 Ondansetron Inj 4 Mg/2 Ml Vial IV PUSH 4 mg Q8H PRN Administration Nausea And Vomiting Potassium Chloride 40 meq 11/22/20 09:00 11/22/20 09:31 Potassium Chloride 20 Meq Packet (For Liquid) PO 40 meq DAILY SERAFIN Administration Quetiapine Fumarate 12.5 mg 11/20/20 21:00 11/21/20 20:46 Quetiapine Fumarate 12.5 Mg Tablet PO 12.5 mg HS SERAFIN Administration Radiology Results: ITS Impressions Lumbar Puncture Fluoroscopy 11/21/20 16:28 IMPRESSION: 1. Successful fluoro-guided lumbar puncture. Labs Labs: Laboratory Results - last 24 hr 11/21/20 11/21/20 11/21/20 15:35 15:35 15:35 WBC RBC Hgb Hct MCV MCH MCHC RDW Plt Count MPV Sodium Potassium Chloride Carbon Dioxide Anion Gap BUN Creatinine Estim Creat Clear Calc Estimated GFR Glucose Calcium CSF Source Csf CSF Appearance Hazy A CSF Color Other A CSF RBC 3931 H CSF Tot Nucleated Cells 689 H CSF Neutrophils 0 CSF Lymphocytes 96 H CSF Macrophages 4 CSF Glucose 39 L CSF Total Protein 159 H Herpes Simplex Culture Cancelled Herpes Simplex Typing Cancelled 11/22/20 11/22/20 05:51 05:51 WBC 9.1 RBC 3.94 L Hgb 11.3 L Hct 33.5 L MCV 85.0 MCH 28.7 MCHC 33.7 RDW 13.2 Plt Count 273 MPV 8.8 Sodium 131 L Potassium 3.1 L Chloride 97 L Carbon Dioxide 26 Anion Gap 8 BUN 14 D Creatinine 0.70 Estim Creat Clear Calc 50 Estimated GFR
[2020-11-22] MEDS: ONDANSETRON INJ 4 MG/2 ML VIAL IV PUSH (17:53)
[2020-11-22] MEDS: MELATONIN 5 MG TABLET PO (20:16)
[2020-11-22] MEDS: QUEtiapine FUMARATE 12.5 MG TABLET PO (20:16)
--- NOTE | 2020-11-22 23:29 | CONS_ITS ---
DATE OF CONSULTATION: 11/22/2020 REASON FOR CONSULTATION: Fever. HISTORY OF PRESENT ILLNESS: A 80-year-old female, who can provide a limited history. Her symptoms that she relates include headache at the left rastafarian and generalized weakness. Her daughter is present at the bedside and provides additional history. The daughter lives in [facility] in [place], but speaks with her mother on a daily basis. Sometime early last week, the patient was noting malaise and lassitude without other symptoms. On November 15, 5 days before the present admission, the patient had a fall when she was in the bathroom, striking her left head. No other findings were noted when the daughter checked on the patient the next day and she returned back to home. However, in the intervening 2 days, the patient developed gait disturbance and that she was walking into keenan and door ways, occipital headache, visual hallucinations, nausea and vomiting, urinary incontinence, and generalized weakness. She was seen in the emergency room early in the morning of the and sent home. She then returned to the emergency room at the outside hospital during that day and continued to have confusion. Flowers catheter was inserted. MRI was performed and she was transferred here on the . She had lumbar puncture performed yesterday, her 1st in her lifetime and consultation was requested. She was started on admission on ampicillin, vancomycin, ceftriaxone, and acyclovir and she remains on all 4 of those now. No other recent antimicrobials. She was febrile at the outside hospital, but we note no fever at home. The patient has had no recent surgeries. Has no prosthetic devices in place, extravascular nor endovascular and no previous brain surgery of any kind. The patient has also had visual disturbance with diplopia. PRESENT MEDICATIONS: See above. No immunosuppressants here nor at home. ALLERGIES: NONE KNOWN. HABITS: No tobacco. No alcohol. 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 Vitamin D deficiency. REVIEW OF SYSTEMS: 14-point review attempted, not obtainable from the patient in a meaningful fashion due to decreased level of consciousness. The daughter who keeps up with the patient's health very carefully, believes review of systems is otherwise negative except as above. FAMILY HISTORY: Not pertinent to present illness. SOCIAL HISTORY: The patient has no pets at home. She does walk on a bicycle past, but has no close exposure to livestock nor animals. There has been no bites of any kind. The patient lives alone, but has been very functional up until her present illness. Patient's daughter is a social media content manager and provides comprehensive information. PHYSICAL EXAMINATION: GENERAL: This is an elderly female appears her actual age. She appears ill. No respiratory distress. At the outside hospital, T-max up to 38.8. Since arrival here, T-max 39.5 early yesterday and in the last 24 hours 38.0. 90, 16, 95% on room air, 139/62. SKIN: She has ecchymoses consistent with phlebotomy and superficial trauma. There is no hematoma over the left rastafarian. She had no rashes and no skin breakdown or ulcers. NODES: No axillary or cervical adenopathy. EENT: Pupils equal, round. The conjunctivae are normal. The oral mucosa is normal. The patient will not permit full exam. NECK: There is no true meningismus, the neck is mildly stiff. She had no thyromegaly. Trachea is in the midline. LUNGS: Clear to auscultation and percussion. CARDIAC: Regular rate and rhythm. No murmur, gallop, or rub. Pulses are 2+, equal, well perfused. ABDOMEN: No bruits. N
[2020-11-23] VITALS (8 sets, daily range): BP systolic 131–178; BP diastolic 48–80; PULSE 69–108; RESP 16–20; TEMP 35.7–38.6; O2SAT 92–97
[2020-11-23] MEDS: ACETAMINOPHEN 325 MG TABLET 650 MG PO ×2 (00:16→16:38)
[2020-11-23] MEDS: AMPICILLIN 2 GM/NS 100 ML 2 GM/100 ML BAG IVPB ×6 (00:17→20:21)
[2020-11-23 01:36] LABS: Vancomycin Trough < 5.0 ug/mL (10.0-20.0)
[2020-11-23 06:04] LABS: Hematocrit 35.3 % (37.0-47.0); Mean Corpuscular Hemoglobin 29.7 pg (26-34); Mean Corpuscular Volume 87.4 fl (80-100); Mean Platelet Volume 8.9 fl (7.4-10.4); Platelet Count Result 244 k/mm3 (150-375); Red Blood Count 4.04 M/mm3 (4.2-5.4); Red Cell Distribution Width 13.3 % (11.5-14.5); White Blood Count 7.3 K/mm3 (4.5-10.0)
[2020-11-23 06:16] LABS: Anion Gap 3 mmol/L (8-16); Blood Urea Nitrogen 14 mg/dL (7-17); Calcium 8.1 mg/dL (8.4-10.2); Carbon Dioxide 32 mmol/L (22-30); Chloride 100 mmol/L (98-107); Estimated CRCL calculation 50 ml/min; Estimated Glomerular Filt Rate > 60; Glucose 107 mg/dL (65-105); Potassium 3.4 mmol/L (3.4-5.0); Sodium 135 mmol/L (137-145)
[2020-11-23] MEDS: POTASSIUM CHLORIDE 20 MEQ PACKET (FOR LIQUID) 40 MEQ PO (08:10)
--- NOTE | 2020-11-23 13:47 | PM.IMPN ---
Progress Note: A&P Assessment and Plan (1) Metabolic encephalopathy: Code(s): G93.41 - Metabolic encephalopathy Status: Acute Assessment and Plan: encephalopathy secondary to sepsis or vasculitis related. Pt is on IV rocephin, vancomycin and ampicillin and acyclovir for encephalopathy. Neurology rounding, Id rounding. Slow improvement. . (2) Fever: Code(s): R50.9 - Fever, unspecified Status: Resolved Assessment and Plan: Fever resolved pt looks slightly improved (3) Electrolyte abnormality: Code(s): E87.8 - Other disorders of electrolyte and fluid balance, not elsewhere classified Status: Acute Assessment and Plan: Mild electrolyte abnormalities including hyponatremia, hypokalemia, and hypomagnesemia. Correct levels accordingly. (4) Hypertension: Code(s): I10 - Essential (primary) hypertension Status: Acute Assessment and Plan: Blood pressures is high continue to watch (5) Hyperlipidemia: Code(s): E78.5 - Hyperlipidemia, unspecified Status: Acute Assessment and Plan: Continue statin (6) Anxiety: Code(s): F41.9 - Anxiety disorder, unspecified Status: Acute Assessment and Plan: Escitalopram on hold Subjective Date/time seen: 11/23/20 13:47 Interval history: 80-year-old female with hypertension, hyperlipidemia, and anxiety who is being directly admitted to the hospital from [facility] for further evaluation of fever, weakness, and altered mental status. Pt sp LP. Slow improvement with IV abx. Pt seen by neurology and ID. gradual improvement. Ongoing blurred vision and tiredness Orientedx3 and holding conversation when spoken to Review of Systems Review of Systems: All systems reviewed & are unremarkable except as noted in HPI and below ROS unobtainable: Yes unobtainable due to medical condition Exam Narrative: Exam Narrative: General: Ill-appearing elderly female, more arousable Neck: Supple. No carotid bruits. Respiratory: Lungs are clear to auscultation bilaterally. Cardiovascular: Regular rate and rhythm with S1-S2. Gastrointestinal: Abdomen is soft, nontender, and nondistended with positive bowel sounds. Genitourinary: Flowers catheter draining clear yellow urine. Skin: Warm and dry. No rash or lesions on limited exam. Extremities: No cyanosis, clubbing, or edema. Radial and pedal pulses intact. Neurological: Alert and oriented x3 moving all 4 limbs Objective Data Vital Signs Vital Signs: Vital Signs - 24 hr 11/22/20 14:00 11/22/20 16:00 11/22/20 17:17 Temperature 36.8 C 37.1 C Pulse Rate 90 95 Respiratory Rate 16 Blood Pressure 139/62 Pulse Oximetry 95 11/22/20 20:00 11/22/20 21:35 11/23/20 00:00 Temperature 37.2 C Pulse Rate 109 H 108 H 108 H Respiratory Rate 20 Blood Pressure 163/80 H Pulse Oximetry 90 11/23/20 00:16 11/23/20 04:00 11/23/20 06:00 Temperature 38.6 C H 35.7 C L Pulse Rate 69 81 Respiratory Rate 20 Blood Pressure 157/74 H Pulse Oximetry 97 11/23/20 12:00 Temperature 36.7 C Pulse Rate 94 Respiratory Rate 16 Blood Pressure 178/80 H Pulse Oximetry 92 Intake/Output Intake/Output: Intake & Output 11/20/20 11/21/20 11/22/20 11/23/20 23:59 23:59 23:59 23:59 Intake Total 690 1690 1430 760 Output Total 200 2150 1900 850 Balance 490 -460 -470 -90 Meds/Results Medications: Active Medications Generic Name Dose Route Start Last Admin Trade Name Freq PRN Reason Stop Dose Admin Acetaminophen 650 mg 11/21/20 00:13 11/23/20 00:16 Acetaminophen 325 Mg Tablet PO 650 mg Q6H PRN Administration Mild Pain (1-3) or Fever Ceftriaxone Sodium 2 gm in 100 mls @ 200 mls/hr 11/20/20 18:00 11/23/20 06:01 Rocephin 2 Gm/D5w 100 Ml IVPB Infused Q12H SERAFIN Infusion Ampicillin Sodium 2 gm in 100 mls @ 200 mls/hr 11/20/20 17:00 11/23/20 12:32 Ampicillin 2
[2020-11-23 16:36] LABS: Cryptococcus Antigen Not Detected (Not Detected); Cryptococcus Specimen Source CSF
[2020-11-23] MEDS: ONDANSETRON INJ 4 MG/2 ML VIAL IV PUSH (16:46)
[2020-11-23] MEDS: polyethylene glycoL 3350 17 GM POWD.PACK PO (17:40)
[2020-11-23] MEDS: QUEtiapine FUMARATE 12.5 MG TABLET PO (20:20)
[2020-11-23] MEDS: MELATONIN 5 MG TABLET PO (20:20)
[2020-11-24] MEDS: AMPICILLIN 2 GM/NS 100 ML 2 GM/100 ML BAG IVPB ×6 (00:30→20:39)
[2020-11-24 05:14] VITALS: TEMP 37.7
[2020-11-24] MEDS: ACETAMINOPHEN 325 MG TABLET 650 MG PO ×3 (05:14→17:29)
[2020-11-24 05:59] VITALS: BP 167/82; PULSE 103; RESP 20; TEMP 37.7; O2SAT 95
[2020-11-24 06:14] VITALS: TEMP 36.8
[2020-11-24 06:19] LABS: Hematocrit 33.6 % (37.0-47.0); Hemoglobin 11.3 g/dL (12.0-15.0); Mean Corpuscular HGB Conc 33.6 g/dl (32-36); Mean Corpuscular Hemoglobin 29.3 pg (26-34); Mean Platelet Volume 8.5 fl (7.4-10.4); Platelet Count Result 267 k/mm3 (150-375); Red Blood Count 3.86 M/mm3 (4.2-5.4); Red Cell Distribution Width 13.7 % (11.5-14.5); White Blood Count 7.9 K/mm3 (4.5-10.0)
[2020-11-24 06:33] LABS: Anion Gap 5 mmol/L (8-16); Blood Urea Nitrogen 14 mg/dL (7-17); Calcium 8.2 mg/dL (8.4-10.2); Carbon Dioxide 31 mmol/L (22-30); Chloride 96 mmol/L (98-107); Estimated CRCL calculation 50 ml/min; Estimated Glomerular Filt Rate > 60; Glucose 118 mg/dL (65-105); Potassium 3.2 mmol/L (3.4-5.0); Sodium 132 mmol/L (137-145)
[2020-11-24 07:47] LABS: Herpes Simplex Type 1 DNA PCR Not Detected (Not Detected); Herpes Simplex Type 2 DNA PCR Not Detected (Not Detected)
[2020-11-24] MEDS: POTASSIUM CHLORIDE 20 MEQ TABLET.ER 40 MEQ PO (08:33)
[2020-11-24 09:45] LABS: Epstein Barr Virus DNA PCR Not Detected (Not Detected); Source Epstein Barr Virus CSF
--- NOTE | 2020-11-24 11:15 | PM.IMPN ---
Progress Note: A&P Assessment and Plan (1) Metabolic encephalopathy: Code(s): G93.41 - Metabolic encephalopathy Status: Acute Assessment and Plan: encephalopathy secondary to sepsis or vasculitis related. Pt is on IV rocephin, vancomycin and ampicillin and acyclovir for encephalopathy. Neurology rounding, Id rounding. Slow improvement. (2) Fever: Code(s): R50.9 - Fever, unspecified Status: Resolved Assessment and Plan: Fever resolved pt looks slightly improved (3) Electrolyte abnormality: Code(s): E87.8 - Other disorders of electrolyte and fluid balance, not elsewhere classified Status: Acute Assessment and Plan: Mild electrolyte abnormalities including hyponatremia, hypokalemia, and hypomagnesemia. Correct levels accordingly. (4) Hypertension: Code(s): I10 - Essential (primary) hypertension Status: Acute Assessment and Plan: Blood pressures is high continue to watch (5) Hyperlipidemia: Code(s): E78.5 - Hyperlipidemia, unspecified Status: Acute Assessment and Plan: Continue statin (6) Anxiety: Code(s): F41.9 - Anxiety disorder, unspecified Status: Acute Assessment and Plan: Escitalopram on hold Subjective Date/time seen: 11/24/20 11:15 Interval history: 80-year-old female with hypertension, hyperlipidemia, and anxiety who is being directly admitted to the hospital from [facility] [place] for further evaluation of fever, weakness, and altered mental status. Pt sp LP. Pt being treated for encephalitis with IV abx and IV antiviral. Pt having constipation issues and stiffness in her legs. Not eating much. Review of Systems Review of Systems: All systems reviewed & are unremarkable except as noted in HPI and below Exam Narrative: Exam Narrative: General: Ill-appearing elderly female, arousable holding conversation Neck: Supple. No carotid bruits. Respiratory: Lungs are clear to auscultation bilaterally. Cardiovascular: Regular rate and rhythm with S1-S2. Gastrointestinal: Abdomen is soft, slightly distended with positive bowel sounds. Genitourinary: Flowers catheter draining clear yellow urine. Skin: Warm and dry. No rash or lesions on limited exam. Extremities: No cyanosis, clubbing, or edema. Radial and pedal pulses intact. Neurological: Alert and oriented x3. generalized weakness of arms and legs Objective Data Vital Signs Vital Signs: Vital Signs - 24 hr 11/23/20 12:00 11/23/20 14:00 11/23/20 22:00 Temperature 36.7 C 37.2 C 36.4 C L Pulse Rate 94 104 H 85 Respiratory Rate 16 16 18 Blood Pressure 178/80 H 166/77 H 131/48 L Pulse Oximetry 92 95 94 11/24/20 05:14 11/24/20 05:59 11/24/20 06:14 Temperature 37.7 C H 37.7 C H 36.8 C Pulse Rate 103 H Respiratory Rate 20 Blood Pressure 167/82 H Pulse Oximetry 95 Intake/Output Intake/Output: Intake & Output 11/21/20 11/22/20 11/23/20 11/24/20 23:59 23:59 23:59 23:59 Intake Total 1690 1430 1840 1510 Output Total 2150 1900 1950 750 Balance -460 -470 -110 760 Meds/Results Medications: Active Medications Generic Name Dose Route Start Last Admin Trade Name Freq PRN Reason Stop Dose Admin Acetaminophen 650 mg 11/21/20 00:13 11/24/20 05:14 Acetaminophen 325 Mg Tablet PO 650 mg Q6H PRN Administration Mild Pain (1-3) or Fever Ceftriaxone Sodium 2 gm in 100 mls @ 200 mls/hr 11/20/20 18:00 11/24/20 07:14 Rocephin 2 Gm/D5w 100 Ml IVPB Infused Q12H SERAFIN Infusion Ampicillin Sodium 2 gm in 100 mls @ 200 mls/hr 11/20/20 17:00 11/24/20 08:55 Ampicillin 2 Gm/Ns 100 Ml IVPB Infused Q4H SERAFIN Infusion Acyclovir Sodium 500 mg/ 110 mls @ 110 mls/hr 11/20/20 22:00 11/24/20 06:17 Dextrose IVPB Infused Q8H SERAFIN Infusion Vancomycin HCl 1,250 mg in 250 mls @ 200 mls/hr 11/23/20 02:00 11/24/20 02:41 Vancomycin 1,250 Mg/D5w 250 Ml IVPB Infused
[2020-11-24] MEDS: BISACODYL 10 MG SUPPOSITORY RECTAL (11:19)
[2020-11-24 14:00] VITALS: BP 123/61; PULSE 72; RESP 16; TEMP 36.5; O2SAT 95
[2020-11-24 14:20] LABS: Vancomycin Trough 12.1 ug/mL (10.0-20.0)
[2020-11-24 15:10] LABS: VDRL Quantitative CSF Nonreactive (Nonreactive)
[2020-11-24] MEDS: ONDANSETRON INJ 4 MG/2 ML VIAL IV PUSH (15:38)
[2020-11-24] MEDS: MELATONIN 5 MG TABLET PO (20:37)
[2020-11-24] MEDS: QUEtiapine FUMARATE 12.5 MG TABLET PO (20:37)
[2020-11-24] MEDS: polyethylene glycoL 3350 17 GM POWD.PACK PO (20:54)
[2020-11-24 22:00] VITALS: BP 132/60; PULSE 88; RESP 20; TEMP 36.3; O2SAT 95
[2020-11-25] MEDS: AMPICILLIN 2 GM/NS 100 ML 2 GM/100 ML BAG IVPB ×3 (01:37→09:27)
[2020-11-25] MEDS: polyethylene glycoL 3350 17 GM POWD.PACK PO (04:56)
[2020-11-25 06:00] VITALS: BP 176/78; PULSE 110; RESP 20; TEMP 36.9; O2SAT 94
[2020-11-25 06:19] LABS: Hematocrit 35.5 % (37.0-47.0); Hemoglobin 11.7 g/dL (12.0-15.0); Mean Corpuscular Hemoglobin 29.3 pg (26-34); Mean Platelet Volume 8.8 fl (7.4-10.4); Platelet Count Result 299 k/mm3 (150-375); Red Blood Count 3.99 M/mm3 (4.2-5.4); Red Cell Distribution Width 13.9 % (11.5-14.5); White Blood Count 6.7 K/mm3 (4.5-10.0)
[2020-11-25 06:26] LABS: Anion Gap 4 mmol/L (8-16); Blood Urea Nitrogen 10 mg/dL (7-17); Carbon Dioxide 30 mmol/L (22-30); Chloride 98 mmol/L (98-107); Estimated CRCL calculation 50 ml/min; Estimated Glomerular Filt Rate > 60; Glucose 126 mg/dL (65-105); Potassium 3.3 mmol/L (3.4-5.0); Sodium 132 mmol/L (137-145)
[2020-11-25] MEDS: ROSUVASTATIN 5 MG TABLET PO (09:26)
[2020-11-25] MEDS: lisinopriL 5 MG TABLET PO (09:26)
[2020-11-25] MEDS: ESCITALOPRAM OXALATE 10 MG TABLET PO (09:26)
[2020-11-25] MEDS: POTASSIUM CHLORIDE 20 MEQ TABLET.ER 40 MEQ PO (09:26)
[2020-11-25] MEDS: ACETAMINOPHEN 325 MG TABLET 650 MG PO ×2 (09:26→23:50)
--- NOTE | 2020-11-25 09:28 | PCPTNOTE ---
Attempted PT eval. Cora CAMARENA, stated to hold therapy as was giving pain meds and wanted time for it to work. Will try again at later time.
--- NOTE | 2020-11-25 09:40 | WPDNEUROPN ---
Progress Note: A&P Assessment and Plan (1) Confusion: Code(s): R41.0 - Disorientation, unspecified Status: Acute (2) Positive RAJINDER (antinuclear antibody): Code(s): R76.8 - Other specified abnormal immunological findings in serum Status: Acute Additional Plan stable Review of Systems Review of Systems: All systems reviewed & are unremarkable except as noted in HPI and below Exam Const: General: cooperative, comfortable, alert and awake Nutritional Appearance: average body habitus Limitations: no limitations HENMT: Head: normal to inspection Ears: hearing grossly normal bilaterally General nose exam: Normal external nose present Face and sinus: normal facial exam Mouth: Yes Normal oral and palatal mucosa present Eyes: General: appearance normal, both eyes and all related structures Visual Rose: normal visual rose by confrontation Alignment and Position: alignment normal Periorbital: periorbital findings normal Eyelids: eyelids normal Conjunctivae: conjunctivae normal Sclera: sclerae normal Cornea: corneas normal Pupils: Equal, round and reactive pupils present EOM: EOMs intact bilaterally and Nystagmus present ( to the left lateral gaze only short lasting) Direct Ophthalmoscopy: normal light reflex Neck: Neck: full ROM Resp: Effort & Inspection: normal respiratory effort Auscultation: clear to auscultation bilaterally Cardio: Rate: regular rate Rhythm: regular rhythm Neuro: General: oriented to person, oriented to place and moves all extremities Cranial nerves: Yes CN's II-XII intact bilaterally Cognition (Neuro): normal cognition Speech: normal speech Gait exam (Neuro): Unable to assess gait Motor exam (neuro): Abnormal motor strength present ( 4/5 generally although) Sensory Exam: normal sensation Deep tendon reflexes (DTR's): Right triceps reflex intensity grade: 1+, Left triceps reflex intensity grade: 1+, Rt Biceps (C5, C6): 1+, Left biceps reflex intensity grade: 1+, Right brachioradialis reflex intensity grade: 1+, Left brachioradialis reflex intensity grade: 1+, Right patellar reflex intensity grade: 1+, Left patellar reflex intensity grade: 1+, Right ankle reflex intensity grade: 1+ and Left ankle reflex intensity grade: 1+ Plantar Reflex Responses: downgoing: bilateral Coordination: [id number] test normal Objective Data Vital Signs Vital Signs: Vital Signs - 24 hr 11/24/20 14:00 11/24/20 22:00 11/25/20 06:00 Temperature 36.5 C 36.3 C L 36.9 C Pulse Rate 72 88 110 H Respiratory Rate 16 20 20 Blood Pressure 123/61 132/60 176/78 H Pulse Oximetry 95 95 94 Intake/Output Intake/Output: Intake & Output 11/22/20 11/23/20 11/24/20 11/25/20 23:59 23:59 23:59 23:59 Intake Total 1430 1840 2630 1010 Output Total 1900 1950 1600 900 Balance -470 -110 1030 110 Meds/Results Medications: Active Medications Generic Name Dose Route Start Last Admin Trade Name Freq PRN Reason Stop Dose Admin Acetaminophen 650 mg 11/21/20 00:13 11/25/20 09:26 Acetaminophen 325 Mg Tablet PO 650 mg Q6H PRN Administration Mild Pain (1-3) or Fever Escitalopram Oxalate 10 mg 11/25/20 09:00 11/25/20 09:26 Escitalopram Oxalate 10 Mg Tablet PO 10 mg DAILY SERAFIN Administration Ceftriaxone Sodium 2 gm in 100 mls @ 200 mls/hr 11/20/20 18:00 11/25/20 07:00 Rocephin 2 Gm/D5w 100 Ml IVPB 200 mls/hr Q12H SERAFIN Administration Ampicillin Sodium 2 gm in 100 mls @ 200 mls/hr 11/20/20 17:00 11/25/20 09:27 Ampicillin 2 Gm/Ns 100 Ml IVPB 200 mls/hr Q4H SERAFIN Administration Acyclovir Sodium 500 mg/ 110 mls @ 110 mls/hr 11/20/20 22:00 11/25/20 06:51 Dextrose IVPB Infused Q8H SERAFIN Infusion Vancomycin HCl 1,500 mg in 500 mls @ 333.333 mls/hr 11/24/20 15:00 11/25/20 04:30 Vancomycin 1,500 Mg/D5w 500 Ml IVPB Infused Q12H SERAFIN Infusion Lisinopril 5 mg 11/25/20 09:00 11/25/20 09:26 Lisinopril 5 Mg Tablet PO 5 mg DAILY SERAFIN Admini
[2020-11-25] MEDS: ONDANSETRON INJ 4 MG/2 ML VIAL IV PUSH (09:51)
--- NOTE | 2020-11-25 12:45 | WPDINFPN2 ---
Progress Note: A&P Assessment and Plan (1) Fever: Code(s): R50.9 - Fever, unspecified Status: Resolved Assessment and Plan: 1. Fever and lymphocytic pleocytosis, suspect infectious encephalitis. But no + micro. Lyme is pending, but this is an extremely low probability diagnosis. CT angio of brain noted. 2. +RAJINDER, lupus cerebritis is in the differential, although no prior autoimmune Dx and cerebritis is unusual as a presenting finding REC Ctx #6/10 (due to preexisting antibiotics prior to LP) / ACV #6 /14. The RAJINDER should be investigated further, as other forms of vasculitis besides lupus may be responsible. If Rheumatology help is needed, would need transfer. Discussed with daughter. For symptomatic treatment, tramadol. Subjective Date/time seen: 11/25/20 12:45 Interval history: patient with headache at times, not currently. Diffuse body aches. Confusion. Legs do not support weight. Exam Narrative: Exam Narrative: 38.6 = t max since last visit Const: General: no acute distress Eyes: General: appearance normal, both eyes and all related structures Neck: Neck: supple Resp: Effort & Inspection: normal respiratory effort Auscultation: clear to auscultation bilaterally and lung sounds not diminished Cardio: Rate: regular rate Rhythm: regular rhythm Heart sounds: no gallops, no murmurs and no rubs GI: Inspection: non-distended GI Palp: Yes Soft to palpation and No Tenderness to palpation present (GI) Skin: General skin exam: normal color and no rashes or lesions noted Neuro: Speech: No normal speech Motor exam (neuro): tone not normal throughout and abnormal movements noted Extrem: General: normal to inspection and no edema Objective Data Vital Signs Vital Signs: Vital Signs - 24 hr 11/24/20 14:00 11/24/20 22:00 11/25/20 06:00 Temperature 36.5 C 36.3 C L 36.9 C Pulse Rate 72 88 110 H Respiratory Rate 16 20 20 Blood Pressure 123/61 132/60 176/78 H Pulse Oximetry 95 95 94 Intake/Output Intake/Output: Intake & Output 11/22/20 11/23/20 11/24/20 11/25/20 23:59 23:59 23:59 23:59 Intake Total 1430 1840 2630 1130 Output Total 1900 1950 1600 900 Balance -470 -110 1030 230 Meds/Results Medications: Active Medications Generic Name Dose Route Start Last Admin Trade Name Carlton PRN Reason Stop Dose Admin Acetaminophen 650 mg 11/21/20 00:13 11/25/20 09:26 Acetaminophen 325 Mg Tablet PO 650 mg Q6H PRN Administration Mild Pain (1-3) or Fever Escitalopram Oxalate 10 mg 11/25/20 09:00 11/25/20 09:26 Escitalopram Oxalate 10 Mg Tablet PO 10 mg DAILY SERAFIN Administration Ceftriaxone Sodium 2 gm in 100 mls @ 200 mls/hr 11/20/20 18:00 11/25/20 07:00 Rocephin 2 Gm/D5w 100 Ml IVPB 200 mls/hr Q12H SERAFIN Administration Acyclovir Sodium 500 mg/ 110 mls @ 110 mls/hr 11/20/20 22:00 11/25/20 06:51 Dextrose IVPB Infused Q8H SERAFIN Infusion Lisinopril 5 mg 11/25/20 09:00 11/25/20 09:26 Lisinopril 5 Mg Tablet PO 5 mg DAILY SERAFIN Administration Melatonin 5 mg 11/21/20 00:20 11/24/20 20:37 Melatonin 5 Mg Tablet PO 5 mg HS SERAFIN Administration Ondansetron HCl 4 mg 11/21/20 14:19 11/25/20 09:51 Ondansetron Inj 4 Mg/2 Ml Vial IV PUSH 4 mg Q8H PRN Administration Nausea And Vomiting Polyethylene Glycol 17 gm 11/23/20 17:14 11/25/20 04:56 Polyethylene Glycol 3350 17 Gm Powd.Pack PO 17 gm DAILY PRN Administration Constipation Potassium Chloride 40 meq 11/24/20 08:00 11/25/20 09:26 Potassium Chloride 20 Meq Tablet.Er PO 40 meq DAILY@0800 SERAFIN Administration Quetiapine Fumarate 12.5 mg 11/20/20 21:00 11/24/20 20:37 Quetiapine Fumarate 12.5 Mg Tablet PO 12.5 mg HS SERAFIN Administration Rosuvastatin Calcium 5 mg 11/25/20 09:00 11/25/20 09:26 Rosuvastatin 5 Mg Tablet PO 5 mg DAILY SERAFIN Administration Radiology Results: ITS Impressions Lumbar Puncture Fluoroscopy 11/21/20 16:28 OBED
[2020-11-25] MEDS: LIDOCAINE HCL 1% PF INJ 5 ML VIAL INFILTRATE (13:20)
[2020-11-25 14:00] VITALS: BP 145/71; PULSE 93; RESP 16; TEMP 36.8; O2SAT 95
[2020-11-25] MEDS: CENTRAL LINE FLUSH 10 ML IV PUSH ×2 (14:30→22:05)
--- NOTE | 2020-11-25 15:08 | PM.IMPN ---
Progress Note: A&P Assessment and Plan (1) Metabolic encephalopathy: Code(s): G93.41 - Metabolic encephalopathy Status: Acute Assessment and Plan: encephalopathy secondary to sepsis or vasculitis related. Pt is on IV acyclovir for encephalopathy. Neurology rounding, Id rounding. Slow improvement. Pt has Picc line placed add nutrition through line. (2) Fever: Code(s): R50.9 - Fever, unspecified Status: Resolved Assessment and Plan: Fever resolved pt looks slightly improved (3) Electrolyte abnormality: Code(s): E87.8 - Other disorders of electrolyte and fluid balance, not elsewhere classified Status: Acute Assessment and Plan: Mild electrolyte abnormalities including hyponatremia, hypokalemia, and hypomagnesemia. Correct levels accordingly. (4) Hypertension: Code(s): I10 - Essential (primary) hypertension Status: Acute Assessment and Plan: Blood pressures is high continue to watch (5) Hyperlipidemia: Code(s): E78.5 - Hyperlipidemia, unspecified Status: Acute Assessment and Plan: Continue statin (6) Anxiety: Code(s): F41.9 - Anxiety disorder, unspecified Status: Acute Assessment and Plan: Escitalopram on hold Subjective Date/time seen: 11/25/20 15:08 Interval history: 80-year-old female with hypertension, hyperlipidemia, and anxiety who is being directly admitted to the hospital from [facility] [place] for further evaluation of fever, weakness, and altered mental status. Pt sp LP. Pt being treated for encephalitis with IV abx and IV antiviral. Pt having constipation issues and stiffness in her legs. Not eating much. Long discussion about nutrition and positioning asuncion as she is so somnolent Review of Systems Review of Systems: All systems reviewed & are unremarkable except as noted in HPI and below Exam Narrative: Exam Narrative: General: Ill-appearing elderly female, arousable holding conversation Neck: Supple. No carotid bruits. Respiratory: Lungs are clear to auscultation bilaterally. Cardiovascular: Regular rate and rhythm with S1-S2. Gastrointestinal: Abdomen is soft, slightly distended with positive bowel sounds. Genitourinary: Flowers catheter draining clear yellow urine. Skin: Warm and dry. No rash or lesions on limited exam. Extremities: No cyanosis, clubbing, or edema. Radial and pedal pulses intact. Neurological: Alert and oriented x3. generalized weakness of arms and legs Objective Data Vital Signs Vital Signs: Vital Signs - 24 hr 11/24/20 22:00 11/25/20 06:00 11/25/20 14:00 Temperature 36.3 C L 36.9 C 36.8 C Pulse Rate 88 110 H 93 Respiratory Rate 20 20 16 Blood Pressure 132/60 176/78 H 145/71 H Pulse Oximetry 95 94 95 Intake/Output Intake/Output: Intake & Output 11/22/20 11/23/20 11/24/20 11/25/20 23:59 23:59 23:59 23:59 Intake Total 1430 1840 2630 1450 Output Total 1900 1950 1600 900 Balance -470 -110 1030 550 Meds/Results Medications: Active Medications Generic Name Dose Route Start Last Admin Trade Name Carlton PRN Reason Stop Dose Admin Acetaminophen 650 mg 11/21/20 00:13 11/25/20 09:26 Acetaminophen 325 Mg Tablet PO 650 mg Q6H PRN Administration Mild Pain (1-3) or Fever Escitalopram Oxalate 10 mg 11/25/20 09:00 11/25/20 09:26 Escitalopram Oxalate 10 Mg Tablet PO 10 mg DAILY SERAFIN Administration Ceftriaxone Sodium 2 gm in 100 mls @ 200 mls/hr 11/20/20 18:00 11/25/20 07:30 Rocephin 2 Gm/D5w 100 Ml IVPB Infused Q12H SERAFIN Infusion Acyclovir Sodium 500 mg/ 110 mls @ 110 mls/hr 11/20/20 22:00 11/25/20 14:30 Dextrose IVPB 110 mls/hr Q8H SERAFIN Administration Lisinopril 5 mg 11/25/20 09:00 11/25/20 09:26 Lisinopril 5 Mg Tablet PO 5 mg DAILY SERAFIN Administration Melatonin 5 mg 11/21/20 00:20 11/24/20 20:37 Melatonin 5 Mg Tablet PO 5 mg HS SERAFIN Administratio
[2020-11-25] MEDS: traMADol/ACETAMINOPHEN (*CRX) (ULTRACET) 37.5/325 MG TABLET 1 TAB PO (15:28)
[2020-11-25] MEDS: AMINO ACIDS 4.25%/D5W/LYTES/CA 2,000 ML 80 ML IV CONT (15:45)
[2020-11-25 16:43] LABS: Basophils Percent Auto 0.3 % (0.2-1.2); Eosinophils Absolute Auto 0.1 K/mm3 (0-0.3); Eosinophils Percent Auto 2.2 % (0-4.4); Hematocrit 31.2 % (37.0-47.0); Hemoglobin 10.6 g/dL (12.0-15.0); Immature Granulocyte Absolute 0.02 K/mm3 (0.00-0.031); Immature Granulocyte Percent A 0.3 % (0-0.5); Lymphocytes Absolute Auto 0.97 K/mm3 (0.9-3.2); Lymphocytes Percent Auto 15.3 % (18.3-44.2); Mean Corpuscular Hemoglobin 29.2 pg (26-34); Mean Platelet Volume 8.4 fl (7.4-10.4); Monocytes Absolute Auto 0.5 K/mm3 (0.1-0.6); Neutrophils Absolute Auto 4.7 K/mm3 (1.3-6.7); Neutrophils Percent Auto 73.9 % (45.5-73.1); Platelet Count Result 290 k/mm3 (150-375); Red Blood Count 3.63 M/mm3 (4.2-5.4); Red Cell Distribution Width 13.9 % (11.5-14.5); White Blood Count 6.4 K/mm3 (4.5-10.0)
[2020-11-25 16:57] LABS: Partial Thromboplastin Time 27.7 SECONDS (22.3-36.8)
[2020-11-25 17:00] LABS: Alanine Aminotransferase 15 U/L (4-35); Alkaline Phosphatase 28 U/L (38-126); Anion Gap 2 mmol/L (8-16); Aspartate Amino Transferase 26 U/L (14-36); Bilirubin,Total 0.2 mg/dL (0.2-1.3); Blood Urea Nitrogen 11 mg/dL (7-17); Calcium 8.3 mg/dL (8.4-10.2); Carbon Dioxide 32 mmol/L (22-30); Chloride 100 mmol/L (98-107); Estimated CRCL calculation 58 ml/min; Estimated Glomerular Filt Rate > 60; Glucose 120 mg/dL (65-105); Magnesium 2.1 mg/dL (1.6-2.3); Potassium 3.9 mmol/L (3.4-5.0); Sodium 134 mmol/L (137-145)
[2020-11-25 17:07] LABS: Transferrin 130 mg/dL (206-381)
[2020-11-25 18:30] LABS: Glucose Point of Care 100 (65-105)
[2020-11-25] MEDS: QUEtiapine FUMARATE 12.5 MG TABLET PO (21:28)
[2020-11-25 21:36] VITALS: BP 151/78; PULSE 90; RESP 18; TEMP 36.7; O2SAT 96
[2020-11-26] MEDS: MELATONIN 5 MG TABLET PO ×2 (00:05→21:25)
[2020-11-26 06:00] VITALS: BP 154/71; PULSE 89; RESP 20; TEMP 37.2; O2SAT 92
[2020-11-26 06:38] LABS: Glucose Point of Care 128 (65-105)
[2020-11-26 06:41] LABS: Alanine Aminotransferase 17 U/L (4-35); Albumin Level 3.2 g/dL (3.5-5.1); Alkaline Phosphatase 32 U/L (38-126); Anion Gap -2 mmol/L (8-16); Aspartate Amino Transferase 28 U/L (14-36); Bilirubin,Total < 0.1 mg/dL (0.2-1.3); Blood Urea Nitrogen 15 mg/dL (7-17); Calcium 8.2 mg/dL (8.4-10.2); Carbon Dioxide 31 mmol/L (22-30); Chloride 102 mmol/L (98-107); Estimated CRCL calculation 50 ml/min; Estimated Glomerular Filt Rate > 60; Glucose 116 mg/dL (65-105); Phosphorus 3.7 mg/dL (2.5-4.5); Sodium 131 mmol/L (137-145)
[2020-11-26 06:57] LABS: Potassium 3.9 mmol/L (3.4-5.0)
[2020-11-26] MEDS: CENTRAL LINE FLUSH 10 ML IV PUSH ×3 (08:04→22:20)
[2020-11-26] MEDS: POTASSIUM CHLORIDE 20 MEQ TABLET.ER 40 MEQ PO (09:04)
[2020-11-26] MEDS: lisinopriL 5 MG TABLET PO (09:04)
[2020-11-26] MEDS: ROSUVASTATIN 5 MG TABLET PO (09:04)
[2020-11-26] MEDS: ESCITALOPRAM OXALATE 10 MG TABLET PO (09:04)
[2020-11-26] MEDS: ENOXAPARIN 40 MG/0.4 ML SYRINGE SUB-Q (09:04)
[2020-11-26] MEDS: traMADol/ACETAMINOPHEN (*CRX) (ULTRACET) 37.5/325 MG TABLET 1 TAB PO (11:15)
[2020-11-26] MEDS: ONDANSETRON INJ 4 MG/2 ML VIAL IV PUSH (11:16)
[2020-11-26 11:18] VITALS: BMI 22.7
[2020-11-26 12:24] LABS: Glucose Point of Care 139 (65-105)
[2020-11-26] MEDS: polyethylene glycoL 3350 17 GM POWD.PACK PO (12:43)
--- NOTE | 2020-11-26 13:16 | PM.IMPN ---
Progress Note: A&P Assessment and Plan (1) Positive RAJINDER (antinuclear antibody): Code(s): R76.8 - Other specified abnormal immunological findings in serum Status: Acute Assessment and Plan: I called to her office and said that follow-up with her in the outpatient setting once discharged from hospital (2) Confusion: Code(s): R41.0 - Disorientation, unspecified Status: Acute Assessment and Plan: Likely secondary to encephalitis patient with significant findings in cephalad spinal fluid analysis (3) Balance problem: Code(s): R26.89 - Other abnormalities of gait and mobility Status: Acute Assessment and Plan: MRI with no acute changes (4) Acute hyponatremia: Code(s): E87.1 - Hypo-osmolality and hyponatremia Status: Acute Assessment and Plan: Continue to monitor Possible SIADH Will repeat BMP (5) HTN (hypertension): Code(s): I10 - Essential (primary) hypertension Status: Acute Assessment and Plan: Stable Continue to monitor Subjective Date/time seen: 11/26/20 13:16 I feel tired Review of Systems Review of Systems: ROS unobtainable: Yes unobtainable due to mental status (Encephalopathic) Exam Narrative: Exam Narrative: Laying in bed Const: General: comfortable, no acute distress, well developed, alert and awake Nutritional Appearance: average body habitus Orientation/consciousness: oriented to person and Other orientation findings (Delirious) HENMT: Head: normal to inspection, normocephalic and atraumatic Ears: hearing grossly normal bilaterally Face and sinus: normal facial exam Eyes: General: appearance normal, both eyes and all related structures Pupils: Equal, round and reactive pupils present EOM: EOMs intact bilaterally Neck: Neck: full ROM, no lymphadenopathy and no JVD Thyroid: thyroid normal Lymphatic: no lymphadenopathy noted Resp: Effort & Inspection: normal respiratory effort and able to speak in complete sentences Auscultation: clear to auscultation bilaterally Cardio: Jugular venous distension: no JVD Rate: regular rate Rhythm: regular rhythm Heart sounds: S1 normal heart sound present and S2 normal heart sound present GI: GI Palp: Yes Soft to palpation and Yes No hepatosplenomegaly present : General: Yes deferred Skin: Rashes: no rashes Wounds: no wounds Neuro: General: oriented to person and CN's II-XI intact bilaterally Cranial nerves: Yes CN's II-XII intact bilaterally and Yes Equal, round and reactive pupils present Cognition (Neuro): abnormal cognition (Delirious) Speech: normal speech Gait exam (Neuro): Unable to assess gait Motor exam (neuro): 5/5 motor strength present throughout Extrem: General: normal to inspection, full ROM, no joint enlargement and no pedal edema Objective Data Vital Signs Vital Signs: Vital Signs - 24 hr 11/25/20 14:00 11/25/20 21:36 11/26/20 06:00 Temperature 98.2 F 98.0 F 98.9 F Pulse Rate 93 90 89 Respiratory Rate 16 18 20 Blood Pressure 145/71 H 151/78 H 154/71 H Pulse Oximetry 95 96 92 Intake/Output Intake/Output: Intake & Output 11/23/20 11/24/20 11/25/20 11/26/20 23:59 23:59 23:59 23:59 Intake Total 1840 2630 1660 940 Output Total 1950 1600 1900 1200 Balance -110 1030 -240 -260 Meds/Results Medications: Active Medications Generic Name Dose Route Start Last Admin Trade Name Freq PRN Reason Stop Dose Admin Acetaminophen 650 mg 11/21/20 00:13 11/25/20 23:50 Acetaminophen 325 Mg Tablet PO 650 mg Q6H PRN Administration Mild Pain (1-3) or Fever Enoxaparin Sodium 40 mg 11/26/20 09:00 11/26/20 09:04 Enoxaparin 40 Mg/0.4 Ml Syringe SUB-Q 40 mg DAILY SERAFIN Administration Escitalopram Oxalate 10 mg 11/25/20 09:00 11/26/20 09:04 Escitalopram Oxalate 10 Mg Tablet PO 10 mg DAILY SERAFIN Administration Ceftriaxone Sodium 2 gm in 100 mls @ 200 mls/hr 11/20/20 18:00 11/26/20 08:34 Roceph
[2020-11-26 14:00] VITALS: BP 150/70; PULSE 94; RESP 16; TEMP 36.6; O2SAT 94
[2020-11-26 15:00] VITALS: BMI 10.0
--- NOTE | 2020-11-26 15:35 | PCPTNOTE ---
Assisted MANAGER LICENSING w/ treatment. Pt c/o being dizzy. Transfers sit to stand w/ mod assist +2. Unable to clear bed. Will try again tomorrow.
[2020-11-26 15:44] LABS: Triglycerides 107 mg/dL (<150)
[2020-11-26] MEDS: AMINO ACIDS 4.25%/D5W/LYTES/CA 2,000 ML 80 ML IV CONT (17:00)
[2020-11-26] MEDS: QUEtiapine FUMARATE 12.5 MG TABLET PO (21:23)
[2020-11-26 21:59] VITALS: BP 145/116; PULSE 101; RESP 20; TEMP 37.2; O2SAT 94
[2020-11-27 05:54] VITALS: BP 173/83; PULSE 96; RESP 20; TEMP 37.2; O2SAT 94
[2020-11-27 06:47] LABS: Anion Gap 5 mmol/L (8-16); Blood Urea Nitrogen 21 mg/dL (7-17); Calcium 8.4 mg/dL (8.4-10.2); Carbon Dioxide 27 mmol/L (22-30); Chloride 98 mmol/L (98-107); Estimated CRCL calculation 58 ml/min; Estimated Glomerular Filt Rate > 60; Glucose 116 mg/dL (65-105); Phosphorus 4.1 mg/dL (2.5-4.5); Potassium 4.2 mmol/L (3.4-5.0); Sodium 130 mmol/L (137-145)
[2020-11-27] MEDS: CENTRAL LINE FLUSH 10 ML IV PUSH ×3 (06:49→22:02)
[2020-11-27] MEDS: ROSUVASTATIN 5 MG TABLET PO (09:18)
[2020-11-27] MEDS: ESCITALOPRAM OXALATE 10 MG TABLET PO (09:18)
[2020-11-27] MEDS: lisinopriL 5 MG TABLET PO (09:18)
[2020-11-27] MEDS: POTASSIUM CHLORIDE 20 MEQ TABLET.ER 40 MEQ PO (09:18)
[2020-11-27] MEDS: traMADol/ACETAMINOPHEN (*CRX) (ULTRACET) 37.5/325 MG TABLET 1 TAB PO ×2 (09:18→18:39)
[2020-11-27] MEDS: ENOXAPARIN 40 MG/0.4 ML SYRINGE SUB-Q (09:18)
[2020-11-27 11:43] LABS: Glucose Point of Care 131 (65-105)
[2020-11-27 11:49] LABS: Basophils Percent Auto 0.3 % (0.2-1.2); Eosinophils Absolute Auto 0.2 K/mm3 (0-0.3); Eosinophils Percent Auto 2.2 % (0-4.4); Hematocrit 36.2 % (37.0-47.0); Immature Granulocyte Absolute 0.03 K/mm3 (0.00-0.031); Immature Granulocyte Percent A 0.4 % (0-0.5); Lymphocytes Percent Auto 16.2 % (18.3-44.2); Mean Corpuscular HGB Conc 33.1 g/dl (32-36); Mean Corpuscular Hemoglobin 29.3 pg (26-34); Mean Corpuscular Volume 88.5 fl (80-100); Mean Platelet Volume 9.2 fl (7.4-10.4); Monocytes Absolute Auto 0.6 K/mm3 (0.1-0.6); Monocytes Percent Auto 7.5 % (2.6-8.5); Neutrophils Absolute Auto 5.5 K/mm3 (1.3-6.7); Neutrophils Percent Auto 73.4 % (45.5-73.1); Platelet Count Result 356 k/mm3 (150-375); Red Blood Count 4.09 M/mm3 (4.2-5.4); Red Cell Distribution Width 14.2 % (11.5-14.5); White Blood Count 7.4 K/mm3 (4.5-10.0)
[2020-11-27] MEDS: BISACODYL 10 MG SUPPOSITORY RECTAL (12:04)
[2020-11-27] MEDS: ONDANSETRON INJ 4 MG/2 ML VIAL IV PUSH (12:27)
--- NOTE | 2020-11-27 13:12 | PM.IMPN ---
Progress Note: A&P Assessment and Plan (1) Positive RAJINDER (antinuclear antibody): Code(s): R76.8 - Other specified abnormal immunological findings in serum Status: Acute Assessment and Plan: I called to her office and said that follow-up with her in the outpatient setting once discharged from hospital (2) Confusion: Code(s): R41.0 - Disorientation, unspecified Status: Acute Assessment and Plan: Likely secondary to encephalitis patient with significant findings in cephalo spinal fluid analysis (3) Balance problem: Code(s): R26.89 - Other abnormalities of gait and mobility Status: Acute Assessment and Plan: MRI with no acute changes (4) Acute hyponatremia: Code(s): E87.1 - Hypo-osmolality and hyponatremia Status: Acute Assessment and Plan: Continue to monitor Possible SIADH Will repeat BMP (5) HTN (hypertension): Code(s): I10 - Essential (primary) hypertension Status: Acute Assessment and Plan: Stable Continue to monitor Subjective Date/time seen: 11/27/20 13:12 Interval history: 80-year-old female with hypertension, hyperlipidemia, and anxiety who is being directly admitted to the hospital from [facility] for further evaluation of fever, weakness, and altered mental status. Pt sp LP. Pt being treated for encephalitis with IV abx and IV antiviral. Pt having constipation issues and stiffness in her legs. Not eating much. Long discussion about nutrition and positioning. Patient was very uncomfortable at time of my visit due to a migrated Flowers catheter diet now has been replaced Patient is very comfortable now. Daughter is at bedside I have discussed transferring to [facility] however no beds available patient is placed in waiting list at [facility]. Review of Systems Review of Systems: All systems reviewed & are unremarkable except as noted in HPI and below ROS unobtainable: Yes unobtainable due to mental status (Encephalopathic) Exam Narrative: Exam Narrative: Laying in bed Const: General: comfortable, no acute distress, well developed, alert and awake Nutritional Appearance: average body habitus Orientation/consciousness: oriented to person and Other orientation findings (Delirious) HENMT: Head: normal to inspection, normocephalic and atraumatic Ears: hearing grossly normal bilaterally Face and sinus: normal facial exam Eyes: General: appearance normal, both eyes and all related structures Pupils: Equal, round and reactive pupils present EOM: EOMs intact bilaterally Neck: Neck: full ROM, no lymphadenopathy and no JVD Thyroid: thyroid normal Lymphatic: no lymphadenopathy noted Resp: Effort & Inspection: normal respiratory effort and able to speak in complete sentences Auscultation: clear to auscultation bilaterally Cardio: Jugular venous distension: no JVD Rate: regular rate Rhythm: regular rhythm Heart sounds: S1 normal heart sound present and S2 normal heart sound present : General: Yes deferred Skin: Rashes: no rashes Wounds: no wounds Neuro: General: oriented to person, CN's II-XI intact bilaterally and Unable to assess gait Cranial nerves: Yes CN's II-XII intact bilaterally and Yes Equal, round and reactive pupils present Cognition (Neuro): abnormal cognition (Delirious) Speech: normal speech Gait exam (Neuro): Unable to assess gait Motor exam (neuro): 5/5 motor strength present throughout Extrem: General: normal to inspection, full ROM, no joint enlargement and no pedal edema Objective Data Vital Signs Vital Signs: Vital Signs - 24 hr 11/26/20 14:00 11/26/20 21:59 11/27/20 05:54 Temperature 97.8 F 99.0 F 98.9 F Pulse Rate 94 101 H 96 Respiratory Rate 16 20 20 Blood Pressure 150/70 H 145/116 H 173/83 H Pulse Oximetry 94 94 94 Intake/Output Intake/Output: Intake & Output 11/24/20 11/25/20 11/26/20 11/27/20 23:59 23:59 23:59 23:59 Intake Total 2659 [id number]
[2020-11-27 14:00] VITALS: BP 151/76; PULSE 97; RESP 22; TEMP 36.8; O2SAT 93
[2020-11-27] MEDS: AMINO ACIDS 4.25%/D5W/LYTES/CA 2,000 ML 80 ML IV CONT (17:24)
[2020-11-27 18:16] LABS: Glucose Point of Care 146 (65-105)
[2020-11-27 20:40] VITALS: PULSE 98; RESP 20; O2SAT 96
[2020-11-27 22:00] VITALS: BP 143/77; PULSE 98; RESP 20; TEMP 36.4; O2SAT 96
[2020-11-27] MEDS: MELATONIN 5 MG TABLET PO (22:00)
[2020-11-27] MEDS: QUEtiapine FUMARATE 12.5 MG TABLET PO (22:01)
[2020-11-28 04:28] LABS: Basophils Percent Auto 0.3 % (0.2-1.2); Eosinophils Absolute Auto 0.1 K/mm3 (0-0.3); Eosinophils Percent Auto 0.9 % (0-4.4); Hematocrit 34.8 % (37.0-47.0); Hemoglobin 11.8 g/dL (12.0-15.0); Immature Granulocyte Absolute 0.06 K/mm3 (0.00-0.031); Immature Granulocyte Percent A 0.6 % (0-0.5); Lymphocytes Absolute Auto 1.22 K/mm3 (0.9-3.2); Lymphocytes Percent Auto 11.9 % (18.3-44.2); Mean Corpuscular HGB Conc 33.9 g/dl (32-36); Mean Corpuscular Hemoglobin 29.6 pg (26-34); Mean Corpuscular Volume 87.2 fl (80-100); Mean Platelet Volume 8.8 fl (7.4-10.4); Monocytes Absolute Auto 0.7 K/mm3 (0.1-0.6); Monocytes Percent Auto 6.7 % (2.6-8.5); Neutrophils Absolute Auto 8.2 K/mm3 (1.3-6.7); Neutrophils Percent Auto 79.6 % (45.5-73.1); Platelet Count Result 358 k/mm3 (150-375); Red Blood Count 3.99 M/mm3 (4.2-5.4); Red Cell Distribution Width 13.7 % (11.5-14.5); White Blood Count 10.3 K/mm3 (4.5-10.0)
[2020-11-28 04:30] LABS: Glucose Point of Care 121 (65-105)
[2020-11-28 04:40] LABS: Alanine Aminotransferase 17 U/L (4-35); Albumin Level 3.5 g/dL (3.5-5.1); Alkaline Phosphatase 35 U/L (38-126); Anion Gap 6 mmol/L (8-16); Aspartate Amino Transferase 28 U/L (14-36); Bilirubin,Total 0.1 mg/dL (0.2-1.3); Blood Urea Nitrogen 25 mg/dL (7-17); Calcium 8.3 mg/dL (8.4-10.2); Carbon Dioxide 27 mmol/L (22-30); Chloride 94 mmol/L (98-107); Estimated CRCL calculation 58 ml/min; Estimated Glomerular Filt Rate > 60; Glucose 110 mg/dL (65-105); Phosphorus 4.2 mg/dL (2.5-4.5); Potassium 4.2 mmol/L (3.4-5.0); Sodium 127 mmol/L (137-145)
[2020-11-28] MEDS: CENTRAL LINE FLUSH 10 ML IV PUSH ×3 (05:31→21:15)
[2020-11-28 06:00] VITALS: BP 163/93; PULSE 93; RESP 18; TEMP 36.5; O2SAT 95
[2020-11-28 06:15] LABS: Glucose Point of Care 128 (65-105)
[2020-11-28] MEDS: lisinopriL 5 MG TABLET PO (09:24)
[2020-11-28] MEDS: ENOXAPARIN 40 MG/0.4 ML SYRINGE SUB-Q (09:24)
[2020-11-28] MEDS: ROSUVASTATIN 5 MG TABLET PO (09:24)
[2020-11-28] MEDS: POTASSIUM CHLORIDE 20 MEQ TABLET.ER 40 MEQ PO (09:24)
[2020-11-28] MEDS: ESCITALOPRAM OXALATE 10 MG TABLET PO (09:24)
[2020-11-28] MEDS: ACETAMINOPHEN 325 MG TABLET 650 MG PO (09:44)
[2020-11-28 12:10] LABS: Glucose Point of Care 122 (65-105)
--- NOTE | 2020-11-28 12:33 | PM.IMPN ---
Progress Note: A&P Assessment and Plan (1) Positive RAJINDER (antinuclear antibody): Code(s): R76.8 - Other specified abnormal immunological findings in serum Status: Acute Assessment and Plan: I called to her office and said that follow-up with her in the outpatient setting once discharged from hospital (2) Confusion: Code(s): R41.0 - Disorientation, unspecified Status: Acute Assessment and Plan: Likely secondary to encephalitis patient with significant findings in cephalo spinal fluid analysis (3) Balance problem: Code(s): R26.89 - Other abnormalities of gait and mobility Status: Acute Assessment and Plan: MRI with no acute changes (4) Acute hyponatremia: Code(s): E87.1 - Hypo-osmolality and hyponatremia Status: Acute Assessment and Plan: Continue to monitor Possible SIADH Will repeat BMP (5) HTN (hypertension): Code(s): I10 - Essential (primary) hypertension Status: Acute Assessment and Plan: Stable Continue to monitor (6) Metabolic encephalopathy: Code(s): G93.41 - Metabolic encephalopathy Status: Acute Assessment and Plan: WORSE TODAY WAXES AND WANES SUPPORTIVE CARE Subjective Date/time seen: 11/28/20 12:33 Interval history: 80-year-old female with hypertension, hyperlipidemia, and anxiety who is being directly [place] [facility] [place] evaluation of fever, weakness, and altered mental status. Pt sp LP. Pt being treated for encephalitis with IV abx and IV antiviral. Pt having constipation issues and stiffness in her legs. Not eating much. Long discussion about nutrition and positioning. Patient was very uncomfortable at time of my visit due to a migrated Flowers catheter diet now has been replaced Patient is very comfortable now. Daughter is at bedside I have discussed transferring to [facility] however no beds available patient is placed in waiting list at [facility]. I CALLED [facility] FOR TRANSFER PATIENT IS ON WAITING LIST WELL 11/28/20 AT TIME OF MY VISIT PATIENT IS DELIRIOUS THRASHING IN BED. Review of Systems Review of Systems: ROS unobtainable: Yes unobtainable due to mental status (Encephalopathic/ DELIRIOUS) Exam Narrative: Exam Narrative: Laying in bed, DELIRIOUS THRASHING ABOUT Const: General: confusion and other ( DELIRIOUS) Nutritional Appearance: average body habitus Orientation/consciousness: Other orientation findings (Delirious) HENMT: Head: normal to inspection, normocephalic and atraumatic Ears: hearing grossly normal bilaterally Face and sinus: normal facial exam Eyes: General: appearance normal, both eyes and all related structures Pupils: Equal, round and reactive pupils present EOM: EOMs intact bilaterally Neck: Neck: full ROM, no lymphadenopathy and no JVD Thyroid: thyroid normal Lymphatic: no lymphadenopathy noted Resp: Effort & Inspection: normal respiratory effort and able to speak in complete sentences Auscultation: clear to auscultation bilaterally Cardio: Jugular venous distension: no JVD Rate: regular rate Rhythm: regular rhythm Heart sounds: S1 normal heart sound present and S2 normal heart sound present : General: Yes deferred Skin: Rashes: no rashes Wounds: no wounds Neuro: General: CN's II-XI intact bilaterally and Unable to assess gait Cranial nerves: Yes CN's II-XII intact bilaterally and Yes Equal, round and reactive pupils present Cognition (Neuro): abnormal cognition (Delirious) Speech: normal speech Motor exam (neuro): 5/5 motor strength present throughout Extrem: General: normal to inspection, full ROM, no joint enlargement and no pedal edema Objective Data Vital Signs Vital Signs: Vital Signs - 24 hr 11/27/20 14:00 11/27/20 20:40 11/27/20 22:00 Temperature 98.2 F 97.5 F L Pulse Rate 97 98 98 Respiratory Rate 22 H 20 20 Blood Pressure 151/76
--- NOTE | 2020-11-28 13:29 | PM.TDS ---
Transfer Discharge Sum: Prov Provider Date of admission: 11/20/20 15:05 Primary care physician: Elma Tatum NP Admitting clinician: Alisha Patterson MD Consults: 11/20/20 Consult to Physician Routine Comment: Consulting Provider: Quentin Chappell diamond grader/MD group to consult: Misti Reason for consultation: encephalopathy Has provider been notified: Yes 11/21/20 Consult to Physician Routine Comment: Consulting Provider: Jr Gaines diamond grader/MD group to consult: ID Reason for consultation: ENCEPHALOPATHY Has provider been notified: Yes 11/25/20 15:11 Consult to Dietitian Routine Reason for Consult:: TPN 11/25/20 15:15 Consult to Dietitian Routine Reason for Consult:: TPN DS: Admitting Diagnosis Admitting Diagnosis Admitting Diagnosis: 1) Metabolic encephalopathy: Code(s): G93.41 - Metabolic encephalopathy Status: Acute Assessment and Plan: Most likely metabolic encephalopathy due to underlying infection given fever. Differential diagnosis includes meningitis, herpes or autoimmune encephalitis (history of shingles and positive RAJINDER), occult infection, versus other. Start low-dose Seroquel tonight for insomnia and hallucinations. Neurologic checks q.[address] Chappell (neurology) has been consulted and his input is appreciated. (2) Fever: Code(s): R50.9 - Fever, unspecified Status: Acute Assessment and Plan: Temperature up to 102.8? at 05:00. So far her workup has been unrevealing as detailed above and in her EMR. She received a dose of ceftriaxone and Zosyn at the outside facility. Blood cultures have been obtained and are pending. Check CRP and ESR. At this time and given concerns for meningitis or encephalitis she has been started on broad-spectrum antibiotics and antivirals. Interventional radiology to perform lumbar puncture in a.m. (3) Electrolyte abnormality: Code(s): E87.8 - Other disorders of electrolyte and fluid balance, not elsewhere classified Status: Acute Assessment and Plan: Mild electrolyte abnormalities including hyponatremia, hypokalemia, and hypomagnesemia. Discontinue sodium chloride tablets and monitor sodium closely for now. Mirtazapine has been stopped. Escitalopram could be playing a factor I suppose and will be held for now. Electrolytes will be monitored and made replete as needed. (4) Hypertension: Code(s): I10 - Essential (primary) hypertension Status: Acute Assessment and Plan: Blood pressures were reviewed and they have been running a bit high, in the 140s to 150 systolic. Certainly not high enough to cause encephalopathy. Continue lisinopril and monitor. (5) Hyperlipidemia: Code(s): E78.5 - Hyperlipidemia, unspecified Status: Acute Assessment and Plan: Continue statin and check LFTs. (6) Anxiety: Code(s): F41.9 - Anxiety disorder, unspecified Status: Acute Assessment and Plan: Escitalopram on hold given hyponatremia. DS: Discharge Diagnosis Discharge Diagnosis (1) Positive RAJINDER (antinuclear antibody): Code(s): R76.8 - Other specified abnormal immunological findings in serum Status: Acute Assessment and Plan: I called to her office and said that follow-up with her in the outpatient setting once discharged from hospital (2) Confusion: Code(s): R41.0 - Disorientation, unspecified Status: Acute Assessment and Plan: Likely secondary to encephalitis patient with significant findings in cephalo spinal fluid analysis (3) Balance problem: Code(s): R26.89 - Other abnormalities of gait and mobility Status: Acute Assessment and Plan: MRI with no acute changes (4) Acute hyponatremia: Code(s): E87.1 - Hypo-osmolality and hyponatremia Status: Acute Assessment and Plan: Continue to monitor Possible SIADH Will repeat BMP (
[2020-11-28 14:00] VITALS: BP 151/75; PULSE 99; RESP 20; TEMP 36.8; O2SAT 96
[2020-11-28] MEDS: traMADol/ACETAMINOPHEN (*CRX) (ULTRACET) 37.5/325 MG TABLET 1 TAB PO (14:01)
--- NOTE | 2020-11-28 15:17 | PCPTNOTE ---
The PT treatment was unable to be completed today. Patient began vomiting shortly after physical therapy arrived. Will continue per Plan of Care frequency and duration.
[2020-11-28] MEDS: ONDANSETRON INJ 4 MG/2 ML VIAL IV PUSH (15:27)
[2020-11-28] MEDS: SODIUM CHLORIDE 0.9% IV 1,000 ML 75 ML IV CONT (16:36)
[2020-11-28 16:40] LABS: Triglycerides 129 mg/dL (<150)
[2020-11-28 18:26] LABS: Glucose Point of Care 111 (65-105)
[2020-11-28 19:44] VITALS: PULSE 99; RESP 20; O2SAT 96
[2020-11-28] MEDS: QUEtiapine FUMARATE 12.5 MG TABLET PO (21:15)
[2020-11-28] MEDS: MELATONIN 5 MG TABLET PO (21:15)
[2020-11-28 21:58] VITALS: BP 146/71; PULSE 97; RESP 18; TEMP 36.5; O2SAT 91
== END 2020-11-29 05:27 | disposition short-term general hospital (02) | DRG 97 ==
PROVIDERS: Internal Medicine; Physician Assistant; Admitting Provider Hospitalist; PCP Nurse Practitioner Family; Visit Provider Family Medicine
DX: G04.81 Other encephalitis and encephalomyelitis (principal); G93.41 Metabolic encephalopathy; E22.2 Syndrome of inappropriate secretion of antidiuretic hormone; A86 Unspecified viral encephalitis; E78.5 Hyperlipidemia, unspecified; I10 Essential (primary) hypertension; F41.9 Anxiety disorder, unspecified; E55.9 Vitamin D deficiency, unspecified; R76.8 Other specified abnormal immunological findings in serum
CPT/HCPCS: 36415; 36569; 62328; 70496; 70498; 80048; 80053; 80202; 82140; 82565; 82607; 82945; 82948; 83605; 83735; 84100; 84157; 84443; 84466; 84478; 85025; 85027; 85610; 85652; 85730; 86140; 86403; 86592; 86617; 86787; 87070; 87102; 87206; 87529; 87798; 88108; 89051; 92610; 93005; 97110; 97161; 97530; A9270; C1751; J0131; J0133; J0290; J0696; J1650; J2405; J3370; J7030; Q9967

== ENCOUNTER 2020-12-10 19:56 | IRF | payer MEDICARE, SELFPAY ==
[2020-12-10 18:20] VITALS: BP 146/62; PULSE 68; RESP 18; TEMP 36.4; O2SAT 94
--- NOTE | 2020-12-10 18:53 | ADMGEN ---
Arrived per ambulance at 1810. This patient, Anay Goins, was admitted to [facility] Room 221-02. Patient/family oriented to hospital policies and general routines including ID bracelet, bed and alarms, visiting hours, pain management, procedures, bathroom and other care routines, personal items, smoking policy, room service/diet, and visiting hours. Information on how to activate the Rapid Response Team has been discussed. Patient/Family are encouraged to report perceived risks to care and to ask questions if they do not understand what they are told or what they should do.
[2020-12-10 20:00] VITALS: PULSE 68; RESP 18; O2SAT 94
[2020-12-10 22:00] VITALS: BP 153/63; PULSE 69; RESP 18; TEMP 36.7; O2SAT 91
[2020-12-11 05:44] LABS: Basophils Percent Auto 0.5 % (0.2-1.2); Eosinophils Absolute Auto 0.1 K/mm3 (0-0.3); Eosinophils Percent Auto 2.2 % (0-4.4); Hematocrit 30.5 % (37.0-47.0); Hemoglobin 10.7 g/dL (12.0-15.0); Immature Granulocyte Absolute 0.02 K/mm3 (0.00-0.031); Immature Granulocyte Percent A 0.3 % (0-0.5); Lymphocytes Absolute Auto 1.67 K/mm3 (0.9-3.2); Lymphocytes Percent Auto 25.9 % (18.3-44.2); Mean Corpuscular HGB Conc 35.1 g/dl (32-36); Mean Corpuscular Volume 85.4 fl (80-100); Mean Platelet Volume 9.5 fl (7.4-10.4); Monocytes Absolute Auto 0.5 K/mm3 (0.1-0.6); Monocytes Percent Auto 7.4 % (2.6-8.5); Neutrophils Absolute Auto 4.1 K/mm3 (1.3-6.7); Neutrophils Percent Auto 63.7 % (45.5-73.1); Platelet Count Result 276 k/mm3 (150-375); Red Blood Count 3.57 M/mm3 (4.2-5.4); Red Cell Distribution Width 15.4 % (11.5-14.5); White Blood Count 6.5 K/mm3 (4.5-10.0)
[2020-12-11 06:00] VITALS: BP 142/59; PULSE 59; RESP 18; TEMP 36.8; O2SAT 93
[2020-12-11 06:04] LABS: Alanine Aminotransferase 31 U/L (4-35); Alkaline Phosphatase 49 U/L (38-126); Anion Gap 4 mmol/L (8-16); Aspartate Amino Transferase 30 U/L (14-36); Bilirubin,Total 0.3 mg/dL (0.2-1.3); Blood Urea Nitrogen 8 mg/dL (7-17); Calcium 8.6 mg/dL (8.4-10.2); Carbon Dioxide 29 mmol/L (22-30); Chloride 103 mmol/L (98-107); Estimated Glomerular Filt Rate 54; Glucose 90 mg/dL (65-105); Potassium 2.8 mmol/L (3.4-5.0); Sodium 136 mmol/L (137-145)
[2020-12-11] MEDS: POTASSIUM CHLORIDE 20 MEQ TABLET 40 MEQ PO (06:44)
[2020-12-11 07:12] LABS: Add Urine Microscopic? NO; Appearance Urine Clear (Clear); Bilirubin Urine Negative (Negative); Blood Urine Negative (Negative); Color Urine Straw (Yellow); Glucose Urine UA Negative (Negative); Ketones Urine Negative (Negative); Leukocyte Esterase Ur Negative LEU/UL (Negative); Nitrate Urine Negative (Negative); Protein Urine Negative (Negative); Specific Grav Ur 1.009 (1.001-1.035); Urobilinogen Urine Negative mg/dL (<2.0)
[2020-12-11] MEDS: amLODIPine BESYLATE 5 MG TABLET 10 MG PO (07:57)
[2020-12-11] MEDS: valACYclovir HCL 500 MG TABLET 1000 MG PO (07:58)
[2020-12-11] MEDS: POTASSIUM CHLORIDE 10 MEQ TABLET.ER PO ×2 (07:59→12:12)
[2020-12-11] MEDS: MULTIVITAMINS /C LUTEIN (CENTRUM SILVER) TABLET *BKC 1 TAB PO (07:59)
[2020-12-11] MEDS: ROSUVASTATIN 10 MG TABLET PO (07:59)
[2020-12-11 08:16] VITALS: BMI 20.3
[2020-12-11] MEDS: ESCITALOPRAM OXALATE 10 MG TABLET 20 MG PO (08:27)
[2020-12-11 13:06] VITALS: BMI 20.3
[2020-12-11 13:36] VITALS: PULSE 77; RESP 18; TEMP 36.6; O2SAT 96
[2020-12-11 13:42] VITALS: BP 126/52
--- NOTE | 2020-12-11 13:52 | PCNSR ---
On 12/11/20, the student, Maddie Cook, provided care and completed [facility] documentation on this patient. I have reviewed the student's documentation and agree with the findings.
[2020-12-11 14:53] LABS: Potassium 3.3 mmol/L (3.4-5.0)
[2020-12-11] MEDS: POTASSIUM CHLORIDE 20 MEQ TABLET.ER PO (17:45)
--- NOTE | 2020-12-11 17:46 | WPDREHABHP ---
H&P: HPI History of Present Illness Date/Time: 12/11/20 17:46 Chief Complaint: viral meningitis with encephalopathy Narrative: HISTORY OF PRESENT ILLNESS: The patient's primary rehab impairment category is brain dysfunction nontraumatic The etiologic diagnosis is encephalopathy in the setting of viral meningitis I saw this patient [id number] on 12/11/2020 The patient is a 80-year-old female with past medical history of hypertension, hyperlipidemia, and anxiety who presented to [facility] and transferred [facility] on 11/29/2020 with acute mental status changes. The patient was then transferred to [facility] for further neurological workup. Patient's history is consistent with 3-4 months of neurological symptoms with an acute decline in the past month. Repeat LP and [facility] showed elevated cells and high-protein with low glucose. 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 The patient was started on IV acyclovir q.8 hours and switched to Valtrex. Hospital course was noted for ileus which has resolved. Patient placed on Miralex.Hypokalemia required extensive p.o. and IV repletion. The patient has been started on supplements. Diet has been increased to regular. Lisinopril has been increased due to persistent HTN. Therapy was initiated at the acute care facility and the patient transferred to us from [place] on 12/10/2020 FALLS OR SURGERIES: The patient has had [no] major surgeries in the 100 days prior to admission. She has had 7 falls in the past year . She had [no] falls with injury in the past year. PRIOR LEVEL OF FUNCTION: Eating was [INDEPENDENT] Oral Care was [INDEPENDENT] Toileting Hygiene was [INDEPENDENT] Shower/Bathing was [INDEPENDENT] Upper Body Dressing was [INDEPENDENT] Lower Body Dressing was [INDEPENDENT] Donning/Weir Footwear was [INDEPENDENT] Rolling Left and Right was [INDEPENDENT] Sit to Lying was [INDEPENDENT] Lying to Sitting was [INDEPENDENT] Sit to Stand was [INDEPENDENT] Bed to Chair Transfers was [INDEPENDENT] Toilet Transfers was [INDEPENDENT] Walking was [INDEPENDENT] [>500 feet] with [NO DEVICE] patient walked at more than 1/2 mi per day Wheelchair Mobility was NOT APPLICABLE PRIOR TO ADMISSION Stairs were INDEPENDENT 13 steps CURRENT LEVEL OF FUNCTION: Eating was SET UP ONLY Oral Care was partial to mod assist Toileting Hygiene was partial to mod assist Shower/Bathing was partial to mod assist Upper Body Dressing was partial to mod Lower Body Dressing was partial to mod assist Donning/Weir Footwear was partial to mod assist Rolling Left and Right was supervision Sit to Lying was partial to mod assist Lying to Sitting was partial to mod assist Sit to Stand was partial to mod assist Bed to Chair Transfers were partial to mod assist Toilet Transfers were partial to mod assist Walking was 3 ft with hand-held assist and partial to mod assist Wheelchair Mobility was not test Stairs were not tested GOALS: Our therapists will evaluate the patient and establish the goals. However, upon pre-admission screening, the expected goals were to be INDEPENDENT with self-care, INDEPENDENT with transfers, and INDEPENDENT with functional mobility so that the patient can return home. ESTIMATED LENGTH OF STAY: 10 days POTENTIAL BARRIERS TO DISCHARGE: Patient lives alone. Family needs training. Severity of condition. Architectural barriers. ACTIVE CO-MORBIDITIES PRESENT ON ADMISSION: Active co-morbidities include hypertension, hyperlipidemia, anxiety, hypokalemia, dysphagia, depression, abdominal pain. The above co-morbidities impact the patient's function and/or functional outcome by impaired balance, impaired endurance, impaired gait, transfers, and ADLs COVID: The patient has not traveled outside the [place] or had contact with someone who is ill that has traveled outside the [place] in the past 21 days. The patient is n
[2020-12-11] MEDS: ENOXAPARIN 40 MG/0.4 ML SYRINGE SUB-Q (21:02)
[2020-12-12 05:06] LABS: Potassium 3.3 mmol/L (3.4-5.0)
[2020-12-12 05:51] LABS: Free T4 Free Thyroxine 1.18 ng/mL (0.78-2.19)
[2020-12-12 06:00] VITALS: BP 111/68; PULSE 74; RESP 20; TEMP 36.4; O2SAT 96
[2020-12-12] MEDS: POTASSIUM CHLORIDE 20 MEQ TABLET.ER PO ×3 (08:35→17:32)
[2020-12-12] MEDS: lisinopriL 10 MG TABLET PO (08:37)
[2020-12-12] MEDS: MULTIVITAMINS /C LUTEIN (CENTRUM SILVER) TABLET *BKC 1 TAB PO (08:38)
[2020-12-12] MEDS: THERAPEUTIC MULTIVITAMINS/MINERALS TAB (*BKC) 1 TABLET PO (08:38)
[2020-12-12] MEDS: ROSUVASTATIN 10 MG TABLET PO (08:38)
[2020-12-12] MEDS: valACYclovir HCL 500 MG TABLET 1000 MG PO ×2 (08:39→20:44)
[2020-12-12] MEDS: ESCITALOPRAM OXALATE 10 MG TABLET 20 MG PO (08:48)
--- NOTE | 2020-12-12 10:12 | RPD ---
INDIVIDUALIZED PLAN OF CARE FOR Anay Goins Brief Synthesis of Pre-Admission Screen, Post-Admission Evaluation and Therapy Evaluations: The patient presents to rehab with encephalopathy in the setting of viral meningitis. Comorbidities include hypertension, hyperlipidemia, anxiety, hypokalemia, dysphagia, depression, abdominal pain, and acute kidney injury. The complexity of the patient's medical management, nursing, and therapy needs require an inpatient rehab hospital stay with a physician-led interdisciplinary team approach. The patient?s needs will be best met in an intensive program vs. at a lower level of care. The patient requires physician services for medical oversight, and coordination of care. Emotional needs will be monitored as depression is a common sequelae of neurological decline. The patient needs physician monitoring and treatment of hypokalemia, acute kidney injury, hypertension, hyperlipidemia, monitoring for adverse reactions to new medications, monitoring of infection, and pain control. The patient requires nursing services for frequent neuro checks, anticoagulation therapy, medication management and education, pressure relief and skin care management, monitoring of labs BID, possible IV administration, and fall/safety precautions. Deficits include:ADLs, Balance, Cognition, Endurance, Family Training/Education, Mobility, ROM, Safety, Strength, Transfers, Pain Management Travel Rn/Case Management for: Discharge Planning and Patient/Family Counseling Physical Therapy: 5 days per week for 75 minutes. Treatments may include: Therapeutic Exercise, Gait Training, Neuromuscular Re-education, Transfer Training, Community Reintegration, Bed Mobility, Patient/Family Education, Wheelchair Mobility Group Therapy/Concurrent Therapy Rationales: -Improve attention span during functional activities in a distracted environment. -Enhance problem solving and/or adequate judgment skills during functional activities in a distracted environment. -Promote increased safety awareness in a distracted environment to reduce fall risk with functional tasks, transfers, and ambulation to allow a more safe, self-sufficient return to the home environment. -Improve dynamic balance skills to promote safety and independence with functional activities in a distracted environment for maximum gain. Occupational Therapy: 5 days per week for 75 minutes. Treatments may include: Therapeutic Exercise, Therapeutic Activity, Cognitive Training, Self-Care Transfer Training, Community Reintegration, Home Management, Patient/Family Education, Wheelchair Mobility Training, Energy Conservation Training Group Therapy/Concurrent Therapy Rationales: -Allow therapist to observe and teach generalization and carry-over of skills learned in individual therapy. -Enhance problem solving and sequencing skills during therapeutic activities in a distracted environment. -Promote increased safety awareness in a realistic setting to reduce fall risk with functional tasks due to visual and verbal distractions. -Increase functional level with ADLs, ADL transfers and use of adaptive equipment through therapeutic activities with others while promoting safety to allow a more safe, self-sufficient return home. Speech Therapy: 5 days per week for 30 minutes. Treatments may include: Dysphasia Therapy, Speech/Language/Communication Therapy, Cognitive Training, Patient/Family Education Group Therapy/Concurrent Therapy - Rationale: -Allow therapist to observe and teach generalization and carry-over of skills learned in individual therapy. -Improve comprehension skills with complex or abstract ideas through discussion in a realistic setting. -Enhance problem solving skills with complex issues during activities in a distracted environment. -Promote increased memory skills and concentration in a distracted environment for a safe transition home. -Improve attention and focus with language/communication skills in a
--- NOTE | 2020-12-12 11:21 | WPDNEURORHBP ---
Subjective Date/time seen: 12/12/20 11:21 Chief Complaint: viral meningitis with encephalopathy Narrative: HISTORY OF PRESENT ILLNESS AT [facility]: The patient is a 80-year-old female with past medical history of hypertension, hyperlipidemia, and anxiety who presented to [facility] and transferred [facility] on 11/29/2020 with acute mental status changes. The patient was then transferred to [facility] for further neurological workup. Patient's history is consistent with 3-4 months of neurological symptoms with an acute decline in the past month. Repeat LP and [facility] showed elevated cells and high-protein with low glucose. 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 The patient was started on IV acyclovir q.8 hours and switched to Valtrex. Hospital course was noted for ileus which has resolved. Patient placed on Miralex.Hypokalemia required extensive p.o. and IV repletion. The patient has been started on supplements. Diet has been increased to regular. Lisinopril has been increased due to persistent HTN. She developed OBIE due to IV anitviral and was switched to po Therapy was initiated at the acute care facility and the patient transferred to us from [place] on 12/10/2020 Patient complains of fatigue and wishes for ferrer catheter to be removed. Review of Systems Constitutional: Constitutional: Reports fatigue Functional Status Ambulation Ability Ability to Ambulate 10 Feet: Minimum Assistance X 1 Ability to Ambulate 50 Feet With 2 Turns: Minimum Assistance X 1 Ambulation Assistive Devices: Walker, Wheeled Exam Narrative: Exam Narrative: Head is normocephalic. Extraocular muscles are intact. Lungs are clear. Neck is supple. Heart rate and rhythm is regular. Bilateral upper and lower extremity strength are 4/5. Endurance is poor. Cognition appears to be intact. Objective Data Vital Signs Vital Signs: Vital Signs - 24 hr 12/11/20 13:36 12/11/20 13:42 12/12/20 06:00 Temperature 36.6 C 36.4 C L Pulse Rate 77 74 Respiratory Rate 18 20 Blood Pressure 126/52 L 111/68 Pulse Oximetry 96 96 Intake/Output Intake/Output: Intake & Output 12/09/20 12/10/20 12/11/20 12/12/20 23:59 23:59 23:59 23:59 Intake Total 1060 560 Output Total 1750 500 Balance -690 60 Meds/Results Medications: Active Medications Generic Name Dose Route Start Last Admin Trade Name Freq PRN Reason Stop Dose Admin Enoxaparin Sodium 40 mg 12/11/20 21:00 12/11/20 21:02 Enoxaparin 40 Mg/0.4 Ml Syringe SUB-Q 40 mg HS SERAFIN Administration Escitalopram Oxalate 20 mg 12/11/20 09:00 12/12/20 08:48 Escitalopram Oxalate 10 Mg Tablet PO 20 mg DAILY SERAFIN Administration Lidocaine/Diphenhydr/Alum/Mg/Simeth 10 ml 12/10/20 20:19 Magnes & Alum Hyd/Simeth/Diphenhyd/Lidocaine 119 Ml Mouthwash BY MOUTH 01/09/21 21:01 Q4HR PRN Mouth Sore Pain Lisinopril 5 mg 12/13/20 09:00 Lisinopril 5 Mg Tablet PO QAM SERAFIN Melatonin 5 mg 12/12/20 10:32 Melatonin 5 Mg Tablet PO HS PRN Insomnia Multivitamins/Calcium 1 tablet 12/12/20 09:00 12/12/20 08:38 Therapeutic Multivitamins/Minerals Tab (*Bkc) PO 1 tablet QAM SERAFIN Administration Multivitamins/Minerals 1 tab 12/11/20 09:00 12/12/20 08:38 Multivitamins /C Lutein (Centrum Silver) Tablet *Bkc PO 1 tab DAILY SERAFIN Administration Potassium Chloride 20 meq 12/11/20 17:00 12/12/20 08:35 Potassium Chloride 20 Meq Tablet.Er PO 20 meq TIDWM SERAFIN Administration Rosuvastatin Calcium 5 mg 12/13/20 09:00 Rosuvastatin 5 Mg Tablet PO DAILY SERAFIN Valacyclovir HCl 1,000 mg 12/11/20 09:00 12/12/20 08:39 Valacyclovir Hcl 500 Mg Tablet PO 12/17/20 09:01 1,000 mg DAILY SERAFIN Administration Labs Labs: Laboratory Results - last 24 hr 12/11/20 12/12/20 12/12/20 14:31 04:40 04:40 Potassium 3.3 L 3.3 L TSH 3.750 Free T4 12/12/20 04:40 Manda
[2020-12-12 14:00] VITALS: BP 127/55; PULSE 68; RESP 18; TEMP 36.3; O2SAT 95
--- NOTE | 2020-12-12 14:46 | PCPTNOTE ---
Anay Goins was evaluated for a wheeled walker on 12/12/2020 by this physical therapist. The wheeled walker will resolve patient's mobility limitations and will be used for ADL's within the home. The patient can safely use the wheeled walker. ?The wheeled walker will resolve the patient?s mobility deficits, including poor endurance, decreased B LE strength, and balance deficits.
[2020-12-12] MEDS: ENOXAPARIN 40 MG/0.4 ML SYRINGE SUB-Q (20:44)
[2020-12-12 21:47] VITALS: BP 151/68; PULSE 70; RESP 20; TEMP 36.9; O2SAT 94
[2020-12-13 05:53] VITALS: BP 142/77; PULSE 71; RESP 18; TEMP 36.2; O2SAT 94
[2020-12-13] MEDS: ESCITALOPRAM OXALATE 10 MG TABLET 20 MG PO (08:44)
[2020-12-13] MEDS: THERAPEUTIC MULTIVITAMINS/MINERALS TAB (*BKC) 1 TABLET PO (08:44)
[2020-12-13] MEDS: ROSUVASTATIN 5 MG TABLET PO (08:45)
[2020-12-13] MEDS: lisinopriL 5 MG TABLET PO (08:45)
[2020-12-13] MEDS: valACYclovir HCL 500 MG TABLET 1000 MG PO ×2 (08:45→20:14)
[2020-12-13] MEDS: MULTIVITAMINS /C LUTEIN (CENTRUM SILVER) TABLET *BKC 1 TAB PO (08:45)
[2020-12-13] MEDS: POTASSIUM CHLORIDE 20 MEQ TABLET.ER PO ×3 (08:45→17:14)
--- NOTE | 2020-12-13 13:24 | WPDNEURORHBP ---
Subjective Date/time seen: 12/13/20 13:24 Chief Complaint: viral meningitis with encephalopathy Narrative: HISTORY OF PRESENT ILLNESS AT [facility]: The patient is a 80-year-old female with past medical history of hypertension, hyperlipidemia, and anxiety who presented to [facility] and transferred [facility] on 11/29/2020 with acute mental status changes. The patient was then transferred to [facility] for further neurological workup. Patient's history is consistent with 3-4 months of neurological symptoms with an acute decline in the past month. Repeat LP and [facility] showed elevated cells and high-protein with low glucose. 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 The patient was started on IV acyclovir q.8 hours and switched to Valtrex. Hospital course was noted for ileus which has resolved. Patient placed on Miralex.Hypokalemia required extensive p.o. and IV repletion. The patient has been started on supplements. Diet has been increased to regular. Lisinopril has been increased due to persistent HTN. She developed OBIE due to IV anitviral and was switched to po Therapy was initiated at the acute care facility and the patient transferred to us from [place] on 12/10/2020 12/12/20 Spoke with dtr who states patient has permissive HTN and has malaise with tight BP mgmt. Will decrease lisinopril to 5mg daily. Patient routinely takes Melatonin 6mg hs at home. 12/13/20 Urinary retention. Patient unable to void and lacks urgency to void despite volumes greater than 500cc. Will obtain Urology consult. Dr Pineda field agronomist. Patient very anxious regarding urinary retention. Review of Systems Review of Systems: All systems reviewed & are unremarkable except as noted in HPI and below Constitutional: Constitutional: Reports fatigue and Reports lethargy Genitourinary: Genitourinary: Reports urinary frequency Functional Status Ambulation Ability Ability to Ambulate 10 Feet: Moderate Assistance X 1 Ability to Ambulate 50 Feet With 2 Turns: Minimum Assistance X 1 Ambulation Assistive Devices: Walker, Wheeled Transfers Ability Ability to Transfer In/Out of Chair: Minimum Assistance X 1 Exam Narrative: Exam Narrative: Head is normocephalic. Extraocular muscles are intact. Lungs are clear. Neck is supple. Heart rate and rhythm is regular. Bilateral upper and lower extremity strength are 4/5. Endurance is poor. Cognition appears to be intact. High level of anxiety noted. Objective Data Vital Signs Vital Signs: Vital Signs - 24 hr 12/12/20 14:00 12/12/20 21:47 12/13/20 05:53 Temperature 36.3 C L 36.9 C 36.2 C L Pulse Rate 68 70 71 Respiratory Rate 18 20 18 Blood Pressure 127/55 L 151/68 H 142/77 H Pulse Oximetry 95 94 94 Intake/Output Intake/Output: Intake & Output 12/10/20 12/11/20 12/12/20 12/13/20 23:59 23:59 23:59 23:59 Intake Total 1060 1040 665 Output Total 1750 1850 1150 Balance -820 -692 -120 Meds/Results Medications: Active Medications Generic Name Dose Route Start Last Admin Trade Name Freq PRN Reason Stop Dose Admin Enoxaparin Sodium 40 mg 12/11/20 21:00 12/12/20 20:44 Enoxaparin 40 Mg/0.4 Ml Syringe SUB-Q 40 mg HS SERAFIN Administration Escitalopram Oxalate 20 mg 12/11/20 09:00 12/13/20 08:44 Escitalopram Oxalate 10 Mg Tablet PO 20 mg DAILY SERAFIN Administration Lidocaine/Diphenhydr/Alum/Mg/Simeth 10 ml 12/10/20 20:19 Magnes & Alum Hyd/Simeth/Diphenhyd/Lidocaine 119 Ml Mouthwash BY MOUTH 01/09/21 21:01 Q4HR PRN Mouth Sore Pain Lisinopril 5 mg 12/13/20 09:00 12/13/20 08:45 Lisinopril 5 Mg Tablet PO 5 mg QAM SERAFIN Administration Melatonin 5 mg 12/12/20 10:32 Melatonin 5 Mg Tablet PO HS PRN Insomnia Multivitamins/Calcium 1 tablet 12/12/20 09:00 12/13/20 08:44 Therapeutic Multivitamins/Minerals Tab (*Bkc) PO 1 tablet QAM SERAFIN Administration Multivitamins/Minerals 1 tab 12/11/20 09
[2020-12-13 14:00] VITALS: BP 131/65; PULSE 66; RESP 18; TEMP 36.1; O2SAT 96
--- NOTE | 2020-12-13 14:55 | WPDURCON ---
Assessment and Plan Assessment and plan (1) Urinary retention: Code(s): R33.9 - Retention of urine, unspecified Status: Acute Assessment and Plan: Etiology is unclear may have a neurogenic component to it. At this point time patient will require intermittent catheterization. If patient is unable to learn that as an outpatient in requires persistent drainage then a indwelling Flowers should be placed. Will then schedule patient for outpatient urodynamics and follow-up with Dr. Harris or his nurse practitioner for further management. Had a lengthy discussion with the patient regarding the plan today. Urology Consult Note HPI Date Seen: 12/13/20 Requesting Physician: Shayna Flores DO Primary Care Provider: Luis Gold MD Consult Narrative Reason for consult: Urinary retention Narrative: Anay Goins is a 80 year old female with a complicated history. In essence patient has a history weakness with altered mental status. She initially required transferred to [facility] where an LP revealed of herpes zoster encephalitis. She is now in the rehab unit. Patient has had difficulty with voiding and has required intermittent catheterization as well as indwelling Flowers's. Patient denies any prior history of retention. Denies any nocturia or significant frequency. Patient did have a urologic procedure by Dr. Harris but it is unclear what that was. Will need to review office charts. Review of Systems Review of Systems: All systems reviewed & are unremarkable except as noted in HPI and below PMFSH Past Medical History Medical History Anxiety Arthritis Benign paroxysmal positional vertigo Colon polyp Hyperlipidemia Hypertension Hypothyroidism Insomnia Shingles Vitamin D deficiency Surgical History Surgical History History of bladder suspension procedure History of hysterectomy Status post Mohs surgery Resection of basal cell carcinoma from the nose. Family History Family History Father Pancreatic cancer Cerebrovascular accident Mother Cerebrovascular accident Sibling Parkinsons disease Sibling Lung cancer Daughter Dyslipidemia Social History Social History Social History: Surrogate decision maker: Daughter Sherron. Code status: Full code. Patient lives independently in a 2 story home with 3 steps to enter. The patient's bedroom is up to 13 steps. She is able to move her bedroom downstairs. The patient's daughter was present for the interview and is the cyber policy and strategy planner. She understands that the patient may need 247 care plan discharge implants to use home instead. Prior to this patient was completely independent walking 1/2 mi per day. Patient was able to manage her finances, medication and did her own yd work. Smoking status: Never smoker Second hand tobacco smoke exposure: No Alcohol intake: never Substance use: never Substance use type: does not use Additional living arrangements comments: The patient is and lives in her own home in [place]. She is independent of all activities of daily living. She has 3 grown children. Additional occupation/education comments: Homemaker. Gender identity (if verbalized by the patient): Female Spiritual care concerns: No Meds Home Medications and Allergies Home Medications Medication Instructions Recorded Confirmed Type rosuvastatin 10 mg tablet 10 mg PO DAILY tablet 08/27/20 12/10/20 History amlodipine 10 mg PO DAILY 12/10/20 12/10/20 History escitalopram oxalate [Lexapro] 20 mg PO DAILY 12/10/20 12/10/20 History lisinopril 10 mg PO DAILY 12/10/20 12/10/20 History [id number]-FA-vit K 1 cap PO DAILY 12/10/20 12/10/20 History [Bariatric Multivitamins
[2020-12-13 20:00] VITALS: PULSE 72; RESP 16; O2SAT 96
[2020-12-13] MEDS: MELATONIN 5 MG TABLET PO (20:13)
[2020-12-13] MEDS: ENOXAPARIN 40 MG/0.4 ML SYRINGE SUB-Q (20:14)
[2020-12-13 22:00] VITALS: BP 155/71; PULSE 72; RESP 16; TEMP 36.8; O2SAT 96
[2020-12-14 06:00] VITALS: BP 155/65; PULSE 63; RESP 16; TEMP 36.6; O2SAT 96
[2020-12-14 06:05] LABS: Potassium 3.8 mmol/L (3.4-5.0)
[2020-12-14 08:00] VITALS: PULSE 63; RESP 16; O2SAT 96
--- NOTE | 2020-12-14 08:14 | WPDNEURORHBP ---
Subjective Date/time seen: 12/14/20 08:14 Interval history: Chief Complaint: viral meningitis with encephalopathy Narrative: HISTORY OF PRESENT ILLNESS AT [facility]: The patient is a 80-year-old female with past medical history of hypertension, hyperlipidemia, and anxiety who presented to [facility] and transferred [facility] on 11/29/2020 with acute mental status changes. The patient was then transferred to [facility] for further neurological workup. Patient's history is consistent with 3-4 months of neurological symptoms with an acute decline in the past month. Repeat LP and [facility] showed elevated cells and high-protein with low glucose. 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 The patient was started on IV acyclovir q.8 hours and switched to Valtrex. Hospital course was noted for ileus which has resolved. Patient placed on Miralex. Hypokalemia required extensive p.o. and IV repletion. The patient has been started on supplements. Diet has been increased to regular. Lisinopril has been increased due to persistent HTN. She developed OBIE due to IV anitviral and was switched to po Therapy was initiated at the acute care facility and the patient transferred to us from [place] on 12/10/2020 12/12/20 Spoke with dtr who states patient has permissive HTN and has malaise with tight BP mgmt. Will decrease lisinopril to 5mg daily. Patient routinely takes Melatonin 6mg hs at home. 12/13/20 Urinary retention. Patient unable to void and lacks urgency to void despite volumes greater than 500cc. Will obtain Urology consult. Dr Pineda sports nutritionist. 12/14/[address] Pineda consult. Will have RN begin teaching self-cath. Patient in better mood, less anxious. Patient concerned about learning st cath. Patient voices no other concerns but of fatigue. BP is running slightly high. Patient states she feels better with permissive BP. Will follow but may need to increase meds. Review of Systems Review of Systems: All systems reviewed & are unremarkable except as noted in HPI and below Constitutional: Constitutional: Reports fatigue and Reports lethargy Genitourinary: Comments: Urinary retention Endocrine: Endocrine: Reports fatigue Functional Status Ambulation Ability Ability to Ambulate 10 Feet: Contact Guard Ability to Ambulate 50 Feet With 2 Turns: Minimum Assistance X 1 Ambulation Assistive Devices: Walker, Wheeled Transfers Ability Ability to Transfer In/Out of Chair: Minimum Assistance X 1 Exam Narrative: Exam Narrative: Head is normocephalic. Extraocular muscles are intact. Lungs are clear. Neck is supple. Heart rate and rhythm is regular. Bilateral upper and lower extremity strength are 4/5. Endurance is poor. Cognition appears to be intact. Patient is more calm this am. Objective Data Vital Signs Vital Signs: Vital Signs - 24 hr 12/13/20 14:00 12/13/20 20:00 12/13/20 22:00 Temperature 36.1 C L 36.8 C Pulse Rate 66 72 72 Respiratory Rate 18 16 16 Blood Pressure 131/65 155/71 H Pulse Oximetry 96 96 96 12/14/20 06:00 Temperature 36.6 C Pulse Rate 63 Respiratory Rate 16 Blood Pressure 155/65 H Pulse Oximetry 96 Intake/Output Intake/Output: Intake & Output 12/11/20 12/12/20 12/13/20 12/14/20 23:59 23:59 23:59 23:59 Intake Total 1060 1040 1145 Output Total 1750 1850 1475 Balance -690 -810 -330 Meds/Results Medications: Active Medications Generic Name Dose Route Start Last Admin Trade Name Freq PRN Reason Stop Dose Admin Enoxaparin Sodium 40 mg 12/11/20 21:00 12/13/20 20:14 Enoxaparin 40 Mg/0.4 Ml Syringe SUB-Q 40 mg HS SERAFIN Administration Escitalopram Oxalate 20 mg 12/11/20 09:00 12/13/20 08:44 Escitalopram Oxalate 10 Mg Tablet PO 20 mg DAILY SERAFIN Administration Lidocaine/Diphenhydr/Alum/Mg/Simeth 10 ml 12/10/20 20:19 Magnes & Alum Hyd/Simeth/Diphenhyd/Lidocaine 119 Ml Mouthwash BY MOUTH 01/09/21 21:01 Q4HR
[2020-12-14] MEDS: ESCITALOPRAM OXALATE 10 MG TABLET 20 MG PO (10:24)
[2020-12-14] MEDS: POTASSIUM CHLORIDE 20 MEQ TABLET.ER PO ×3 (10:24→17:37)
[2020-12-14] MEDS: lisinopriL 5 MG TABLET PO (10:25)
[2020-12-14] MEDS: valACYclovir HCL 500 MG TABLET 1000 MG PO ×2 (10:25→20:38)
[2020-12-14] MEDS: MULTIVITAMINS /C LUTEIN (CENTRUM SILVER) TABLET *BKC 1 TAB PO (10:25)
[2020-12-14] MEDS: ROSUVASTATIN 5 MG TABLET PO (10:25)
[2020-12-14 14:00] VITALS: BP 145/65; PULSE 66; RESP 18; TEMP 36.8; O2SAT 97
--- NOTE | 2020-12-14 19:01 | PC.NURSE ---
At 3 p.m. patient was unable to void on own this shift and was straight cath'd per sterile technique and received 500cc of clear yellow urine.
[2020-12-14 20:00] VITALS: PULSE 65; RESP 18; O2SAT 96
[2020-12-14] MEDS: ENOXAPARIN 40 MG/0.4 ML SYRINGE SUB-Q (20:37)
[2020-12-14] MEDS: MELATONIN 5 MG TABLET PO (20:37)
[2020-12-14 22:00] VITALS: BP 179/74; PULSE 65; RESP 18; TEMP 36.4; O2SAT 96
[2020-12-15 05:31] VITALS: BP 149/79; PULSE 72; RESP 16; TEMP 36.4; O2SAT 97
[2020-12-15] MEDS: POTASSIUM CHLORIDE 20 MEQ TABLET.ER PO ×3 (09:11→17:55)
[2020-12-15] MEDS: lisinopriL 5 MG TABLET PO (09:11)
[2020-12-15] MEDS: ROSUVASTATIN 5 MG TABLET PO (09:11)
[2020-12-15] MEDS: ESCITALOPRAM OXALATE 10 MG TABLET 20 MG PO (09:12)
[2020-12-15] MEDS: MULTIVITAMINS /C LUTEIN (CENTRUM SILVER) TABLET *BKC 1 TAB PO (09:12)
--- NOTE | 2020-12-15 10:08 | WPDNEURORHBP ---
Subjective Date/time seen: 12/15/20 10:08 Interval history: Chief Complaint: viral meningitis with encephalopathy Narrative: HISTORY OF PRESENT ILLNESS AT [facility]: The patient is a 80-year-old female with past medical history of hypertension, hyperlipidemia, and anxiety who presented to [facility] and transferred [facility] on 11/29/2020 with acute mental status changes. The patient was then transferred to [facility] for further neurological workup. Patient's history is consistent with 3-4 months of neurological symptoms with an acute decline in the past month. Repeat LP and [facility] showed elevated cells and high-protein with low glucose. 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 The patient was started on IV acyclovir q.8 hours and switched to Valtrex. Hospital course was noted for ileus which has resolved. Patient placed on Miralex. Hypokalemia required extensive p.o. and IV repletion. The patient has been started on supplements. Patient also developed urinary retention and a Flowers catheter was placed.Diet has been increased to regular. Lisinopril has been increased due to persistent HTN. She developed OBIE due to IV anitviral and was switched to po Therapy was initiated at the acute care facility and the patient transferred to us from [place] on 12/10/2020 12/12/20 Spoke with dtr who states patient has permissive HTN and has malaise with tight BP mgmt. Will decrease lisinopril to 5mg daily. Patient routinely takes Melatonin 6mg hs at home. 12/13/20 Urinary retention. Patient unable to void and lacks urgency to void despite volumes greater than 500cc. Will obtain Urology consult. Dr Pineda speech communication instructor. 12/14/[address] Pineda consult. Will have RN begin teaching self-cath. Patient in better mood, less anxious. Patient concerned about learning st cath. Patient voices no other concerns but of fatigue. BP is running slightly high. Patient states she feels better with permissive BP. Will follow but may need to increase meds. 12/15/20 HTN SBP Ranges in the mid 140s to the high 170s. Will increase lisinopril from 5 mg to 6.25 mg. Patient has extreme anxiety regarding in and out catheterization due to her urinary retention. Counseling was offered. On admission, patient came with a Flowers catheter and she was concerned and irritated by the catheter. Will continue to train for in and out caths to determine if this is possible or or a Flowers catheter will be placed. Urology is following. Barrier to progress is anxiety. Review of Systems Review of Systems: All systems reviewed & are unremarkable except as noted in HPI and below Functional Status Ambulation Ability Ability to Ambulate 10 Feet: Contact Guard Ability to Ambulate 50 Feet With 2 Turns: Contact Guard Ability to Ambulate 150 Feet: Contact Guard Ambulation Assistive Devices: Walker, Wheeled Transfers Ability Ability to Transfer In/Out of Chair: Minimum Assistance X 1 Exam Narrative: Exam Narrative: Head is normocephalic. Extraocular muscles are intact. Lungs are clear. Neck is supple. Heart rate and rhythm is regular. Bilateral upper and lower extremity strength are 4/5. Endurance is improving. Cognition is intact. Patient is highly anxious regarding cath. Objective Data Vital Signs Vital Signs: Vital Signs - 24 hr 12/14/20 14:00 12/14/20 20:00 12/14/20 22:00 Temperature 36.8 C 36.4 C L Pulse Rate 66 65 65 Respiratory Rate 18 18 18 Blood Pressure 145/65 H 179/74 H Pulse Oximetry 97 96 96 12/15/20 05:31 Temperature 36.4 C Pulse Rate 72 Respiratory Rate 16 Blood Pressure 149/79 H Pulse Oximetry 97 Intake/Output Intake/Output: Intake & Output 12/12/20 12/13/20 12/14/20 12/15/20 23:59 23:59 23:59 23:59 Intake Total 1040 1145 840 240 Output Total 3830 2076 3424 724 [facility] -810 -330 -660 -485 Meds/Results Medications: Active Medications Generic Name Dose Route Start Last Admin Tra
[2020-12-15 13:37] VITALS: BP 143/61; PULSE 75; RESP 16; TEMP 35.9; O2SAT 97
[2020-12-15] MEDS: valACYclovir HCL 500 MG TABLET 1000 MG PO ×2 (15:36→20:46)
[2020-12-15] MEDS: PHENYLEPH/SHARK OIL/MO/PETROL CREAM 26 GM 1 APPLIC RECTAL (15:38)
--- NOTE | 2020-12-15 18:50 | PC.NURSE ---
patient voided 100cc, then this insurance underwriter sales bladder scanned and found to have 337ml in bladder, and drained 350ml per straight cath.
[2020-12-15] MEDS: MELATONIN 5 MG TABLET PO (20:46)
[2020-12-15] MEDS: ENOXAPARIN 40 MG/0.4 ML SYRINGE SUB-Q (20:47)
[2020-12-15 21:48] VITALS: BP 167/67; PULSE 67; RESP 16; TEMP 36.6; O2SAT 97
[2020-12-16 05:27] LABS: Potassium 4.3 mmol/L (3.4-5.0)
[2020-12-16 06:00] VITALS: BP 150/70; PULSE 77; RESP 16; TEMP 36.7; O2SAT 97
[2020-12-16 08:00] VITALS: PULSE 62; RESP 14; O2SAT 95
[2020-12-16] MEDS: lisinopriL 5 MG TABLET PO (10:25)
[2020-12-16] MEDS: MULTIVITAMINS /C LUTEIN (CENTRUM SILVER) TABLET *BKC 1 TAB PO (10:25)
[2020-12-16] MEDS: POTASSIUM CHLORIDE 20 MEQ TABLET.ER PO ×3 (10:25→18:09)
[2020-12-16] MEDS: valACYclovir HCL 500 MG TABLET 1000 MG PO ×2 (10:26→20:12)
[2020-12-16] MEDS: ESCITALOPRAM OXALATE 10 MG TABLET 20 MG PO (10:26)
[2020-12-16] MEDS: ROSUVASTATIN 5 MG TABLET PO (10:26)
--- NOTE | 2020-12-16 10:27 | WPDNEURORHBP ---
Subjective Date/time seen: 12/16/20 10:27 Interval history: Chief Complaint: viral meningitis with encephalopathy Narrative: HISTORY OF PRESENT ILLNESS AT [facility]: The patient is a 80-year-old female with past medical history of hypertension, hyperlipidemia, and anxiety who presented to [facility] and transferred [facility] on 11/29/2020 with acute mental status changes. The patient was then transferred to [facility] for further neurological workup. Patient's history is consistent with 3-4 months of neurological symptoms with an acute decline in the past month. Repeat LP and [facility] showed elevated cells and high-protein with low glucose. 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 The patient was started on IV acyclovir q.8 hours and switched to Valtrex. Hospital course was noted for ileus which has resolved. Patient placed on Miralex. Hypokalemia required extensive p.o. and IV repletion. The patient has been started on supplements. Patient also developed urinary retention and a Flowers catheter was placed.Diet has been increased to regular. Lisinopril has been increased due to persistent HTN. She developed OBIE due to IV anitviral and was switched to po Therapy was initiated at the acute care facility and the patient transferred to [facility] from [place] on 12/10/2020 12/12/20 Spoke with dtr who states patient has permissive HTN and has malaise with tight BP mgmt. Will decrease lisinopril to 5mg daily. Patient routinely takes Melatonin 6mg hs at home. 12/13/20 Urinary retention. Patient unable to void and lacks urgency to void despite volumes greater than 500cc. Will obtain Urology consult. Dr Pineda enroute controller. 12/14/[address] Pineda consult. Will have RN begin teaching self-cath. Patient in better mood, less anxious. Patient concerned about learning st cath. Patient voices no other concerns but of fatigue. BP is running slightly high. Patient states she feels better with permissive BP. Will follow but may need to increase meds. 12/15/20 HTN SBP Ranges in the mid 140s to the high 170s. Will increase lisinopril from 5 mg to 6.25 mg. Patient has extreme anxiety regarding in and out catheterization due to her urinary retention. Counseling was offered. On admission, patient came with a Flowers catheter and she was concerned and irritated by the catheter. Will continue to train for in and out caths to determine if this is possible or or a Flowers catheter will be placed. Urology is following. Barrier to progress is anxiety. 12/16/20 Dtr made appointment with Dr Harris today. I spoke with Dr Harris regarding timing of appointment since Dr Santana just saw the patient a few days ago. Appointment will be rescheduled for 4-6 weeks. Dtr aware and is in agreement. Barrier: Anxiety, impulsivity. Review of Systems Review of Systems: All systems reviewed & are unremarkable except as noted in HPI and below Genitourinary: Genitourinary: Reports urinary frequency Comments: retention Psychiatric: Psychiatric: Reports anxiety Functional Status Ambulation Ability Ability to Ambulate 10 Feet: Contact Guard Ability to Ambulate 50 Feet With 2 Turns: Contact Guard Ability to Ambulate 150 Feet: Contact Guard Ambulation Assistive Devices: Walker, Wheeled Transfers Ability Ability to Transfer In/Out of Chair: Minimum Assistance X 1 Exam Narrative: Exam Narrative: Head is normocephalic. Extraocular muscles are intact. Lungs are clear. Neck is supple. Heart rate and rhythm is regular. Bilateral upper and lower extremity strength are 4/5. With fatigue, patient starts to lean to the left. Mild left sided weakness noted. Endurance is improving. Cognition is intact. Patient is highly anxious regarding cath. Patient needs constant reminders to slow down. Objective Data Vital Signs Vital Signs: Vital Signs - 24 hr 12/15/20 13:37 12/15/20 21:48 12/16/20 06:00 Temperature 35.9 C L 36.6 C 36.7 C P
--- NOTE | 2020-12-16 12:21 | PCNFU ---
Nutrition Follow-Up Complete: Nutrition Diagnosis: Inadequate intake related to decreased appetite as evidenced by inability to finish meals and weight loss of 5 lbs. Nutrition Goal: Have pt consume 100% of her meals. Goal met. Pt is currently on a regular level 7 diet. Last recorded weight is 55.5 kg. Recommend obtaining new weight. Bowel Motility: Last bowel documented on 12/14/20. Labs Reviewed: No new labs available. Meds Noted: Amlodipine, Escitalopram, Lidocaine, Lisinopril, Potassium Chloride, Rosuvastatin Calcium, Valacyclovir. Additional Notes: Pt has been consuming 100% for the past couple days. Her appetite has varied, but still continues to eat something during each meal time. She has been snacking throughout the day as well. Will follow up in 7 days.
--- NOTE | 2020-12-16 12:48 | PCNSR ---
On 12/16/20, the student, Maddie Cook, provided care and completed [facility] documentation on this patient. I have reviewed the student's documentation and agree with the findings.
[2020-12-16 13:35] VITALS: BP 122/58; PULSE 76; O2SAT 97
[2020-12-16 14:00] VITALS: BP 121/58; PULSE 62; RESP 14; TEMP 37.1; O2SAT 95
--- NOTE | 2020-12-16 16:30 | WPDUROPN2 ---
Subjective Subjective Date/Time Seen: 12/16/20 16:30 I spoke to the doctor on rehab today. We also attempted to call the daughter to explain how we are going to manage her bladder, but there was no answer. She has incomplete bladder emptying likely due to encephalitis. Initially she was not voiding at all on her own. Now she is voiding about 100 cc with a 300 cc residual. Intermittent catheterization should be continued for now with documentation a postvoid residual urines. Once the postvoid residual urine is less than 100 cc is when intermittent catheterization can be discontinued. If she is stable for discharge in this incomplete emptying has not resolved she will either need to go home doing intermittent catheterization or with a Flowers catheter. She should out have outpatient follow-up in one month. Objective Data Vital Signs Vital Signs: Vital Signs - 24 hr 12/15/20 21:48 12/16/20 06:00 12/16/20 14:00 Temperature 97.9 F 98.0 F 98.7 F Pulse Rate 67 77 62 Respiratory Rate 16 16 14 Blood Pressure 167/67 H 150/70 H 121/58 L Pulse Oximetry 97 97 95 Intake/Output Intake/Output: Intake & Output 12/13/20 12/14/20 12/15/20 12/16/20 23:59 23:59 23:59 23:59 Intake Total 1145 840 960 720 Output Total 1475 1500 1075 Balance -330 -660 -115 720 Meds/Results Medications: Active Medications Generic Name Dose Route Start Last Admin Trade Name Freq PRN Reason Stop Dose Admin Enoxaparin Sodium 40 mg 12/11/20 21:00 12/15/20 20:47 Enoxaparin 40 Mg/0.4 Ml Syringe SUB-Q 40 mg HS SERAFIN Administration Escitalopram Oxalate 20 mg 12/11/20 09:00 12/16/20 10:26 Escitalopram Oxalate 10 Mg Tablet PO 20 mg DAILY SERAFIN Administration Lidocaine/Diphenhydr/Alum/Mg/Simeth 10 ml 12/10/20 20:19 Magnes & Alum Hyd/Simeth/Diphenhyd/Lidocaine 119 Ml Mouthwash BY MOUTH 01/09/21 21:01 Q4HR PRN Mouth Sore Pain Lisinopril 1.25 mg 12/15/20 09:00 12/16/20 10:26 Lisinopril 1.25 Mg Tablet PO 1.25 mg QAM SERAFIN Administration Lisinopril 5 mg 12/16/20 09:00 12/16/20 10:25 Lisinopril 5 Mg Tablet PO 5 mg QAM SERAFIN Administration Melatonin 5 mg 12/13/20 21:00 12/15/20 20:46 Melatonin 5 Mg Tablet PO 5 mg HS SERAFIN Administration Multivitamins/Minerals 1 tab 12/11/20 09:00 12/16/20 10:25 Multivitamins /C Lutein (Centrum Silver) Tablet *Bkc PO 1 tab DAILY SERAFIN Administration Phenyleph/Shark Oil/Min Oil/Petrol 1 applic 12/13/20 17:32 12/15/20 15:38 Phenyleph/Shark Oil/Mo/Petrol Cream 26 Gm RECTAL 1 applic TID PRN Administration Hemorrhoids Potassium Chloride 20 meq 12/11/20 17:00 12/16/20 12:58 Potassium Chloride 20 Meq Tablet.Er PO 20 meq TIDWM SERAFIN Administration Rosuvastatin Calcium 5 mg 12/13/20 09:00 12/16/20 10:26 Rosuvastatin 5 Mg Tablet PO 5 mg DAILY SERAFIN Administration Valacyclovir HCl 1,000 mg 12/15/20 14:20 12/16/20 10:26 Valacyclovir Hcl 500 Mg Tablet PO 12/16/20 21:01 1,000 mg Q12HR SERAFIN Administration Labs Labs: Laboratory Results - last 24 hr 12/16/20 05:06 Potassium 4.3
[2020-12-16] MEDS: ENOXAPARIN 40 MG/0.4 ML SYRINGE SUB-Q (20:12)
[2020-12-16] MEDS: MELATONIN 5 MG TABLET PO (20:12)
[2020-12-16 22:00] VITALS: BP 135/73; PULSE 78; RESP 18; TEMP 36.4; O2SAT 96
[2020-12-17 06:00] VITALS: BP 157/73; PULSE 68; RESP 18; TEMP 36.4; O2SAT 96
[2020-12-17] MEDS: lisinopriL 5 MG TABLET PO (08:44)
[2020-12-17] MEDS: ESCITALOPRAM OXALATE 10 MG TABLET 20 MG PO (08:44)
[2020-12-17] MEDS: POTASSIUM CHLORIDE 20 MEQ TABLET.ER PO ×3 (08:44→17:47)
[2020-12-17] MEDS: ROSUVASTATIN 5 MG TABLET PO (08:44)
[2020-12-17] MEDS: MULTIVITAMINS /C LUTEIN (CENTRUM SILVER) TABLET *BKC 1 TAB PO (08:44)
[2020-12-17 14:00] VITALS: BP 143/57; PULSE 78; RESP 18; TEMP 37.1; O2SAT 98
--- NOTE | 2020-12-17 17:15 | WPDNEURORHBP ---
Subjective Date/time seen: 12/17/20 17:15 Interval history: Chief Complaint: viral meningitis with encephalopathy Narrative: HISTORY OF PRESENT ILLNESS AT [facility]: The patient is a 80-year-old female with past medical history of hypertension, hyperlipidemia, and anxiety who presented to [facility] and transferred [facility] on 11/29/2020 with acute mental status changes. The patient was then transferred to [facility] for further neurological workup. Patient's history is consistent with 3-4 months of neurological symptoms with an acute decline in the past month. Repeat LP and [facility] showed elevated cells and high-protein with low glucose. 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 The patient was started on IV acyclovir q.8 hours and switched to Valtrex. Hospital course was noted for ileus which has resolved. Patient placed on Miralex. Hypokalemia required extensive p.o. and IV repletion. The patient has been started on supplements. Patient also developed urinary retention and a Flowers catheter was placed.Diet has been increased to regular. Lisinopril has been increased due to persistent HTN. She developed OBIE due to IV anitviral and was switched to po Therapy was initiated at the acute care facility and the patient transferred to us from [place] on 12/10/2020 12/12/20 Spoke with dtr who states patient has permissive HTN and has malaise with tight BP mgmt. Will decrease lisinopril to 5mg daily. Patient routinely takes Melatonin 6mg hs at home. 12/13/20 Urinary retention. Patient unable to void and lacks urgency to void despite volumes greater than 500cc. Will obtain Urology consult. Dr Pineda w[place] weaver. 12/14/[address] Pineda consult. Will have RN begin teaching self-cath. Patient in better mood, less anxious. Patient concerned about learning st cath. Patient voices no other concerns but of fatigue. BP is running slightly high. Patient states she feels better with permissive BP. Will follow but may need to increase meds. 12/15/20 HTN SBP Ranges in the mid 140s to the high 170s. Will increase lisinopril from 5 mg to 6.25 mg. Patient has extreme anxiety regarding in and out catheterization due to her urinary retention. Counseling was offered. On admission, patient came with a Flowers catheter and she was concerned and irritated by the catheter. Will continue to train for in and out caths to determine if this is possible or or a Flowers catheter will be placed. Urology is following. Barrier to progress is anxiety. 12/16/20 Dtr made appointment with Dr Harris today. I spoke with Dr Harris regarding timing of appointment since Dr Santana just saw the patient a few days ago. Appointment will be rescheduled for 4-6 weeks. Dtr aware and is in agreement. Barrier: Anxiety, impulsivity. Patient walking better. Lean to left is less today. Patient voided small amount PVR large amounts. Review of Systems Review of Systems: All systems reviewed & are unremarkable except as noted in HPI and below Functional Status Ambulation Ability Ability to Ambulate 10 Feet: Standby Assistance Ability to Ambulate 50 Feet With 2 Turns: Standby Assistance Ability to Ambulate 150 Feet: Standby Assistance Ambulation Assistive Devices: Walker, Wheeled Transfers Ability Ability to Transfer In/Out of Chair: Standby Assistance Exam Narrative: Exam Narrative: Head is normocephalic. Extraocular muscles are intact. Lungs are clear. Neck is supple. Heart rate and rhythm is regular. Bilateral upper and lower extremity strength are 4/5. With fatigue, patient starts to lean to the left. Mild left sided weakness noted. Endurance is improving. Cognition is intact. Gait is better today. Patient ambulating with a wider MELISSA and less leaning to left. Objective Data Vital Signs Vital Signs: Vital Signs - 24 hr 12/16/20 22:00 12/17/20 06:00 12/17/20 14:00 Temperature 36.4 C L 36.4 C 37.1 C Pulse Rate 78 68 7
[2020-12-17 20:00] VITALS: PULSE 79; RESP 18; O2SAT 97
[2020-12-17] MEDS: MELATONIN 5 MG TABLET PO (21:40)
[2020-12-17] MEDS: ENOXAPARIN 40 MG/0.4 ML SYRINGE SUB-Q (21:41)
[2020-12-17 22:00] VITALS: BP 166/76; PULSE 79; RESP 18; TEMP 37; O2SAT 97
[2020-12-18 05:40] LABS: Basophils Percent Auto 0.4 % (0.2-1.2); Eosinophils Absolute Auto 0.1 K/mm3 (0-0.3); Eosinophils Percent Auto 1.3 % (0-4.4); Hematocrit 31.8 % (37.0-47.0); Hemoglobin 11.1 g/dL (12.0-15.0); Immature Granulocyte Absolute 0.02 K/mm3 (0.00-0.031); Immature Granulocyte Percent A 0.3 % (0-0.5); Lymphocytes Absolute Auto 2.17 K/mm3 (0.9-3.2); Lymphocytes Percent Auto 27.3 % (18.3-44.2); Mean Corpuscular HGB Conc 34.9 g/dl (32-36); Mean Corpuscular Hemoglobin 31.4 pg (26-34); Mean Corpuscular Volume 90.1 fl (80-100); Mean Platelet Volume 9.9 fl (7.4-10.4); Monocytes Absolute Auto 0.6 K/mm3 (0.1-0.6); Monocytes Percent Auto 7.3 % (2.6-8.5); Neutrophils Percent Auto 63.4 % (45.5-73.1); Platelet Count Result 346 k/mm3 (150-375); Red Blood Count 3.53 M/mm3 (4.2-5.4); Red Cell Distribution Width 16.7 % (11.5-14.5); White Blood Count 7.9 K/mm3 (4.5-10.0)
[2020-12-18 05:48] LABS: Alanine Aminotransferase 24 U/L (4-35); Albumin Level 3.2 g/dL (3.5-5.1); Alkaline Phosphatase 45 U/L (38-126); Anion Gap 6 mmol/L (8-16); Aspartate Amino Transferase 24 U/L (14-36); Bilirubin,Total 0.2 mg/dL (0.2-1.3); Blood Urea Nitrogen 8 mg/dL (7-17); Calcium 9.1 mg/dL (8.4-10.2); Carbon Dioxide 24 mmol/L (22-30); Chloride 104 mmol/L (98-107); Estimated CRCL calculation 40 ml/min; Estimated Glomerular Filt Rate > 60; Glucose 88 mg/dL (65-105); Potassium 4.3 mmol/L (3.4-5.0); Sodium 134 mmol/L (137-145)
[2020-12-18 06:00] VITALS: BP 141/75; PULSE 74; RESP 16; TEMP 36.5; O2SAT 99
[2020-12-18 08:00] VITALS: PULSE 88; RESP 20; O2SAT 98
[2020-12-18 08:30] VITALS: BP 111/59; PULSE 89; RESP 20; TEMP 36.1; O2SAT 100
[2020-12-18] MEDS: ESCITALOPRAM OXALATE 10 MG TABLET 20 MG PO (09:34)
[2020-12-18] MEDS: POTASSIUM CHLORIDE 20 MEQ TABLET.ER PO ×3 (09:34→17:03)
[2020-12-18] MEDS: ROSUVASTATIN 5 MG TABLET PO (09:34)
[2020-12-18] MEDS: lisinopriL 5 MG TABLET PO (09:34)
[2020-12-18] MEDS: MULTIVITAMINS /C LUTEIN (CENTRUM SILVER) TABLET *BKC 1 TAB PO (09:34)
--- NOTE | 2020-12-18 13:13 | PC.NURSE ---
Left message with Dr. Harris that patient had one time void with blood tinged urine in toilet. will continue to monitor.
--- NOTE | 2020-12-18 13:58 | PC.NURSE ---
Patient voided 250cc of urine and bladder scanned 66 cc's of urine.
[2020-12-18 14:00] VITALS: BP 151/65; PULSE 76; RESP 18; TEMP 36.7; O2SAT 99
--- NOTE | 2020-12-18 15:39 | WPDNEURORHBP ---
Subjective Date/time seen: 12/18/20 15:39 Interval history: Chief Complaint: viral meningitis with encephalopathy Narrative: HISTORY OF PRESENT ILLNESS AT [facility]: The patient is a 80-year-old female with past medical history of hypertension, hyperlipidemia, and anxiety who presented to [facility] and transferred [facility] on 11/29/2020 with acute mental status changes. The patient was then transferred to [facility] for further neurological workup. Patient's history is consistent with 3-4 months of neurological symptoms with an acute decline in the past month. Repeat LP and [facility] showed elevated cells and high-protein with low glucose. 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 The patient was started on IV acyclovir q.8 hours and switched to Valtrex. Hospital course was noted for ileus which has resolved. Patient placed on Miralex. Hypokalemia required extensive p.o. and IV repletion. The patient has been started on supplements. Patient also developed urinary retention and a Flowers catheter was placed.Diet has been increased to regular. Lisinopril has been increased due to persistent HTN. She developed OBIE due to IV anitviral and was switched to po Therapy was initiated at the acute care facility and the patient transferred to us from [place] on 12/10/2020 12/12/20 Spoke with dtr who states patient has permissive HTN and has malaise with tight BP mgmt. Will decrease lisinopril to 5mg daily. Patient routinely takes Melatonin 6mg hs at home. 12/13/20 Urinary retention. Patient unable to void and lacks urgency to void despite volumes greater than 500cc. Will obtain Urology consult. Dr Pineda degreasing solution mixer. 12/14/[address] Pineda consult. Will have RN begin teaching self-cath. Patient in better mood, less anxious. Patient concerned about learning st cath. Patient voices no other concerns but of fatigue. BP is running slightly high. Patient states she feels better with permissive BP. Will follow but may need to increase meds. 12/15/20 HTN SBP Ranges in the mid 140s to the high 170s. Will increase lisinopril from 5 mg to 6.25 mg. Patient has extreme anxiety regarding in and out catheterization due to her urinary retention. Counseling was offered. On admission, patient came with a Flowers catheter and she was concerned and irritated by the catheter. Will continue to train for in and out caths to determine if this is possible or or a Flowers catheter will be placed. Urology is following. Barrier to progress is anxiety. 12/16/20 Dtr made appointment with Dr Harris today. I spoke with Dr Harris regarding timing of appointment since Dr Santana just saw the patient a few days ago. Appointment will be rescheduled for 4-6 weeks. Dtr aware and is in agreement. Barrier: Anxiety, Patient has consistently been walking with less of a lean. Patient with hematuria. Will d/c Lovenox. Patient voiding on her own with low PVRs Review of Systems Review of Systems: All systems reviewed & are unremarkable except as noted in HPI and below Constitutional: Constitutional: Reports fatigue and Reports lethargy Genitourinary: Genitourinary: Reports urinary frequency Psychiatric: Psychiatric: Reports anxiety Endocrine: Endocrine: Reports fatigue Functional Status Ambulation Ability Ability to Ambulate 10 Feet: Independent Ability to Ambulate 50 Feet With 2 Turns: Independent Ability to Ambulate 150 Feet: Standby Assistance Ambulation Assistive Devices: Walker, Wheeled Transfers Ability Ability to Transfer In/Out of Chair: Standby Assistance Exam Narrative: Exam Narrative: Head is normocephalic. Extraocular muscles are intact. Lungs are clear. Neck is supple. Heart rate and rhythm is regular. Bilateral upper and lower extremity strength are 4/5. With fatigue, patient starts to lean to the left. Mild left sided weakness noted. Endurance is improving. Cognition is intact. Gait is better today. Patien
--- NOTE | 2020-12-18 16:28 | PC.NURSE ---
message left with Dr. Gaines medical lead that patient is being discharged on Wednesday.
[2020-12-18 20:20] VITALS: PULSE 81; RESP 16; O2SAT 98
[2020-12-18] MEDS: MELATONIN 5 MG TABLET PO (20:57)
[2020-12-18 21:36] VITALS: BP 147/76; PULSE 81; RESP 16; TEMP 36.7; O2SAT 98
[2020-12-19 03:07] LABS: Add Urine Microscopic? YES; Appearance Urine Cloudy (Clear); Bacteria Urine 3+ /hpf; Bilirubin Urine Negative (Negative); Blood Urine 1+ (Negative); Color Urine Yellow (Yellow); Glucose Urine UA Negative (Negative); Ketones Urine Negative (Negative); Leukocyte Esterase Ur 3+ LEU/UL (NEGATIVE); Mucus Urine Rare /lpf; Nitrate Urine Positive (Negative); Protein Urine 2+ mg/dL (Negative); RBC Urine 51-75 /hpf (0-2); Specific Grav Ur 1.014 (1.001-1.035); Squamous Epithelial Cell Urine Few /hpf (Few); Urobilinogen Urine Negative mg/dL (<2.0); WBC Urine >75 /hpf (0-3)
[2020-12-19 06:00] VITALS: BP 127/61; PULSE 75; RESP 16; TEMP 36.1; O2SAT 99
[2020-12-19] MEDS: lisinopriL 5 MG TABLET PO (10:06)
[2020-12-19] MEDS: POTASSIUM CHLORIDE 20 MEQ TABLET.ER PO ×3 (10:06→17:13)
[2020-12-19] MEDS: MULTIVITAMINS /C LUTEIN (CENTRUM SILVER) TABLET *BKC 1 TAB PO (10:06)
[2020-12-19] MEDS: ESCITALOPRAM OXALATE 10 MG TABLET 20 MG PO (10:06)
[2020-12-19] MEDS: ROSUVASTATIN 5 MG TABLET PO (10:06)
--- NOTE | 2020-12-19 13:11 | WPDNEURORHBP ---
Subjective Date/time seen: 12/19/20 13:11 Interval history: Chief Complaint: viral meningitis with encephalopathy Narrative: HISTORY OF PRESENT ILLNESS AT [facility]: The patient is a 80-year-old female with past medical history of hypertension, hyperlipidemia, and anxiety who presented to [facility] and transferred [facility] on 11/29/2020 with acute mental status changes. The patient was then transferred to [facility] for further neurological workup. Patient's history is consistent with 3-4 months of neurological symptoms with an acute decline in the past month. Repeat LP and [facility] showed elevated cells and high-protein with low glucose. 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 The patient was started on IV acyclovir q.8 hours and switched to Valtrex. Hospital course was noted for ileus which has resolved. Patient placed on Miralex. Hypokalemia required extensive p.o. and IV repletion. The patient has been started on supplements. Patient also developed urinary retention and a Flowers catheter was placed.Diet has been increased to regular. Lisinopril has been increased due to persistent HTN. She developed OBIE due to IV anitviral and was switched to po Therapy was initiated at the acute care facility and the patient transferred to us from [place] on 12/10/2020 12/12/20 Spoke with dtr who states patient has permissive HTN and has malaise with tight BP mgmt. Will decrease lisinopril to 5mg daily. Patient routinely takes Melatonin 6mg hs at home. 12/13/20 Urinary retention. Patient unable to void and lacks urgency to void despite volumes greater than 500cc. Will obtain Urology consult. Dr Pineda supervisor nutritional yeast. 12/14/[address] Pineda consult. Will have RN begin teaching self-cath. Patient in better mood, less anxious. Patient concerned about learning st cath. Patient voices no other concerns but of fatigue. BP is running slightly high. Patient states she feels better with permissive BP. Will follow but may need to increase meds. 12/15/20 HTN SBP Ranges in the mid 140s to the high 170s. Will increase lisinopril from 5 mg to 6.25 mg. Patient has extreme anxiety regarding in and out catheterization due to her urinary retention. Counseling was offered. On admission, patient came with a Flowers catheter and she was concerned and irritated by the catheter. Will continue to train for in and out caths to determine if this is possible or or a Flowers catheter will be placed. Urology is following. Barrier to progress is anxiety. 12/16/20 Dtr made appointment with Dr Harris today. I spoke with Dr Harris regarding timing of appointment since Dr Santana just saw the patient a few days ago. Appointment will be rescheduled for 4-6 weeks. Dtr aware and is in agreement. Barrier: Anxiety, No hematuria noted since discontinuation of Lovenox. UA penidng. Review of Systems Review of Systems: All systems reviewed & are unremarkable except as noted in HPI and below Functional Status Ambulation Ability Ability to Ambulate 10 Feet: Independent Ability to Ambulate 50 Feet With 2 Turns: Independent Ability to Ambulate 150 Feet: Independent Ambulation Assistive Devices: Walker, Wheeled Transfers Ability Ability to Transfer In/Out of Chair: Standby Assistance Exam Narrative: Exam Narrative: Head is normocephalic. Extraocular muscles are intact. Lungs are clear. Neck is supple. Heart rate and rhythm is regular. Bilateral upper and lower extremity strength are 4/5. With fatigue, patient starts to lean to the left. Mild left sided weakness noted. Endurance is improving. Cognition is intact. Gait is better. Patient is more confident.. Patient ambulating with a wider MELISSA and less leaning to left. Objective Data Vital Signs Vital Signs: Vital Signs - 24 hr 12/18/20 14:00 12/18/20 20:20 12/18/20 21:36 Temperature 36.7 C 36.7 C Pulse Rate 76 81 81 Respiratory Rate 18 16 16 Blood Pressure 151/65 H 1
[2020-12-19 14:00] VITALS: BP 126/53; PULSE 77; RESP 16; TEMP 36.9; O2SAT 97
[2020-12-19 20:20] VITALS: PULSE 72; RESP 16; O2SAT 98
[2020-12-19] MEDS: MELATONIN 5 MG TABLET PO (20:48)
[2020-12-19 21:39] VITALS: BP 134/67; PULSE 72; RESP 16; TEMP 36.3; O2SAT 98
[2020-12-20 06:00] VITALS: BP 140/72; PULSE 76; RESP 16; TEMP 36.6; O2SAT 96
[2020-12-20] MEDS: ESCITALOPRAM OXALATE 10 MG TABLET 20 MG PO (09:09)
[2020-12-20] MEDS: lisinopriL 5 MG TABLET PO (09:09)
[2020-12-20] MEDS: ROSUVASTATIN 5 MG TABLET PO (09:09)
[2020-12-20] MEDS: MULTIVITAMINS /C LUTEIN (CENTRUM SILVER) TABLET *BKC 1 TAB PO (09:09)
[2020-12-20] MEDS: POTASSIUM CHLORIDE 20 MEQ TABLET.ER PO ×3 (09:09→17:44)
[2020-12-20 14:00] VITALS: BP 134/65; PULSE 72; RESP 16; TEMP 36.9; O2SAT 97
--- NOTE | 2020-12-20 14:56 | WPDNEURORHBP ---
Subjective Date/time seen: 12/20/20 14:56 Interval history: Chief Complaint: viral meningitis with encephalopathy Narrative: HISTORY OF PRESENT ILLNESS AT [facility]: The patient is a 80-year-old female with past medical history of hypertension, hyperlipidemia, and anxiety who presented to [facility] and transferred [facility] on 11/29/2020 with acute mental status changes. The patient was then transferred to [facility] for further neurological workup. Patient's history is consistent with 3-4 months of neurological symptoms with an acute decline in the past month. Repeat LP and [facility] showed elevated cells and high-protein with low glucose. 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 The patient was started on IV acyclovir q.8 hours and switched to Valtrex. Hospital course was noted for ileus which has resolved. Patient placed on Miralex. Hypokalemia required extensive p.o. and IV repletion. The patient has been started on supplements. Patient also developed urinary retention and a Flowers catheter was placed.Diet has been increased to regular. Lisinopril has been increased due to persistent HTN. She developed OBIE due to IV anitviral and was switched to po Therapy was initiated at the acute care facility and the patient transferred to us from [place] on 12/10/2020 12/12/20 Spoke with dtr who states patient has permissive HTN and has malaise with tight BP mgmt. Will decrease lisinopril to 5mg daily. Patient routinely takes Melatonin 6mg hs at home. 12/13/20 Urinary retention. Patient unable to void and lacks urgency to void despite volumes greater than 500cc. Will obtain Urology consult. Dr Pineda nutrition program instructor. 12/14/[address] Pineda consult. Will have RN begin teaching self-cath. Patient in better mood, less anxious. Patient concerned about learning st cath. Patient voices no other concerns but of fatigue. BP is running slightly high. Patient states she feels better with permissive BP. Will follow but may need to increase meds. 12/15/20 HTN SBP Ranges in the mid 140s to the high 170s. Will increase lisinopril from 5 mg to 6.25 mg. Patient has extreme anxiety regarding in and out catheterization due to her urinary retention. Counseling was offered. On admission, patient came with a Flowers catheter and she was concerned and irritated by the catheter. Will continue to train for in and out caths to determine if this is possible or or a Flowers catheter will be placed. Urology is following. Barrier to progress is anxiety. 12/16/20 Dtr made appointment with Dr Harris today. I spoke with Dr Harris regarding timing of appointment since Dr Santana just saw the patient a few days ago. Appointment will be rescheduled for 4-6 weeks. Dtr aware and is in agreement. Barrier: Anxiety, No hematuria noted since discontinuation of Lovenox. UA penidng. Review of Systems Review of Systems: All systems reviewed & are unremarkable except as noted in HPI and below Functional Status Ambulation Ability Ability to Ambulate 10 Feet: Independent Ability to Ambulate 50 Feet With 2 Turns: Independent Ability to Ambulate 150 Feet: Independent Ambulation Assistive Devices: Walker, Wheeled Transfers Ability Ability to Transfer In/Out of Chair: Independent Exam Narrative: Exam Narrative: Head is normocephalic. Extraocular muscles are intact. Lungs are clear. Neck is supple. Heart rate and rhythm is regular. Bilateral upper and lower extremity strength are 4/5. With fatigue, patient starts to lean to the left. Mild left sided weakness noted. Endurance is improving. Cognition is intact. Gait is better. Patient is more confident.. Patient ambulating with a wider MELISSA and less leaning to left. Objective Data Vital Signs Vital Signs: Vital Signs - 24 hr 12/19/20 20:20 12/19/20 21:39 12/20/20 06:00 Temperature 36.3 C L 36.6 C Pulse Rate 72 72 76 Respiratory Rate 16 16 16 Blood Pressure 134/67 140/72
[2020-12-20] MEDS: MELATONIN 5 MG TABLET PO (21:48)
[2020-12-20 22:00] VITALS: BP 163/77; PULSE 76; RESP 16; TEMP 36.5; O2SAT 97
[2020-12-21 05:42] LABS: Basophils Percent Auto 0.8 % (0.2-1.2); Eosinophils Absolute Auto 0.1 K/mm3 (0-0.3); Eosinophils Percent Auto 1.6 % (0-4.4); Hematocrit 31.2 % (37.0-47.0); Hemoglobin 10.3 g/dL (12.0-15.0); Immature Granulocyte Absolute 0.01 K/mm3 (0.00-0.031); Immature Granulocyte Percent A 0.2 % (0-0.5); Lymphocytes Percent Auto 43.1 % (18.3-44.2); Mean Corpuscular Hemoglobin 29.9 pg (26-34); Mean Corpuscular Volume 90.7 fl (80-100); Mean Platelet Volume 9.2 fl (7.4-10.4); Monocytes Absolute Auto 0.4 K/mm3 (0.1-0.6); Monocytes Percent Auto 7.6 % (2.6-8.5); Neutrophils Absolute Auto 2.4 K/mm3 (1.3-6.7); Neutrophils Percent Auto 46.7 % (45.5-73.1); Platelet Count Result 313 k/mm3 (150-375); Red Blood Count 3.44 M/mm3 (4.2-5.4); Red Cell Distribution Width 16.7 % (11.5-14.5); White Blood Count 5.1 K/mm3 (4.5-10.0)
[2020-12-21 05:55] LABS: Anion Gap 4 mmol/L (8-16); Blood Urea Nitrogen 9 mg/dL (7-17); Calcium 8.8 mg/dL (8.4-10.2); Carbon Dioxide 25 mmol/L (22-30); Chloride 106 mmol/L (98-107); Estimated CRCL calculation 44 ml/min; Estimated Glomerular Filt Rate > 60; Glucose 91 mg/dL (65-105); Potassium 4.3 mmol/L (3.4-5.0); Sodium 135 mmol/L (137-145)
[2020-12-21 06:00] VITALS: BP 150/58; PULSE 70; RESP 16; TEMP 36.1; O2SAT 99
[2020-12-21] MEDS: ESCITALOPRAM OXALATE 10 MG TABLET 20 MG PO (08:30)
[2020-12-21] MEDS: MULTIVITAMINS /C LUTEIN (CENTRUM SILVER) TABLET *BKC 1 TAB PO (08:30)
[2020-12-21] MEDS: lisinopriL 5 MG TABLET PO (08:31)
[2020-12-21] MEDS: POTASSIUM CHLORIDE 20 MEQ TABLET.ER PO ×2 (08:31→12:20)
[2020-12-21] MEDS: ROSUVASTATIN 5 MG TABLET PO (08:31)
--- NOTE | 2020-12-21 10:07 | PM.DS ---
DS: Admitting Diagnosis Admitting Diagnosis Admitting Diagnosis: encephalopathy DS: Discharge Diagnosis Discharge Diagnosis (1) Electrolyte abnormality: Code(s): E87.8 - Other disorders of electrolyte and fluid balance, not elsewhere classified Status: Acute Assessment and Plan: Potassium levels will be checked regularly and potassium supplementation will be performed . K level 4.3 Patient managed on KCL 20meq TID with meals. (2) Hypertension: Code(s): I10 - Essential (primary) hypertension Status: Acute Assessment and Plan: 12/15/20 Initially patient did not want Lisinopril 10 mg daily. Patient had dizziness and hypotension. Lisinopril 5 mg was ordered but SBP remained high. Will add Lisinopril 6.25 mg daily. (3) Anxiety: Code(s): F41.9 - Anxiety disorder, unspecified Status: Acute Assessment and Plan: Lexapro 20 mg daily (4) Metabolic encephalopathy: Code(s): G93.41 - Metabolic encephalopathy Status: Acute Assessment and Plan: continue PT OT speech (5) Constipation: Code(s): K59.00 - Constipation, unspecified Status: Acute Assessment and Plan: will add MiraLax (6) Balance problem: Code(s): R26.89 - Other abnormalities of gait and mobility Status: Acute Assessment and Plan: PT OT Much improved at discr (7) Fatigue: Code(s): R53.83 - Other fatigue Status: Acute Assessment and Plan: continue to monitor and adjust for electrolyte imbalance. Perform energy conservation techniques (8) Hyperlipidemia: Code(s): E78.5 - Hyperlipidemia, unspecified Status: Acute Assessment and Plan: Crestor (9) Vitamin D deficiency: Code(s): E55.9 - Vitamin D deficiency, unspecified Status: Acute Assessment and Plan: will add supplementation (10) Urinary retention: Code(s): R33.9 - Retention of urine, unspecified Status: Acute Assessment and Plan: 12/12/20 Flowers discontinued. Urology consult. 12/14/20 Patient unable to self cath. 12/21/20 Patient is voiding on her own with low residual of less than 100cc. (11) Insomnia: Code(s): G47.00 - Insomnia, unspecified Status: Acute Assessment and Plan: Melatonin (12) Positive RAJINDER (antinuclear antibody): Code(s): R76.8 - Other specified abnormal immunological findings in serum Status: Acute (13) YAZMNI (generalized anxiety disorder): Code(s): F41.1 - Generalized anxiety disorder Status: Acute (14) Hypothyroidism: Code(s): E03.9 - Hypothyroidism, unspecified Status: Acute Assessment and Plan: History of hypothyroidism. TSH nl Free T4 nl . Patient is NOT on replacement . Will verify with patient and dtr if indeed she had a history of hypothryoidism . (15) UTI (urinary tract infection): Code(s): N39.0 - Urinary tract infection, site not specified Status: Acute Assessment and Plan: Cipro 250mg q 12 hours for 5days due to psedudomonas aeruginosa DS: Summary Hospital Course Hospital Course: Interval history: Chief Complaint: viral meningitis with encephalopathy Narrative: HISTORY OF PRESENT ILLNESS AT [facility]: The patient is a 80-year-old female with past medical history of hypertension, hyperlipidemia, and anxiety who presented to [facility] and transferred [facility] on 11/29/2020 with acute mental status changes. The patient was then transferred to [facility] for further neurological workup. Patient's history is consistent with 3-4 months of neurological symptoms with an acute decline in the past month. Repeat LP and [facility] showed elevated cells and high-protein with low glucose. 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 The patient was started on IV acyclovir q.8 hours and switched to Valtrex. Hospital course was noted for ileus which has resolved. P
[2020-12-21] MEDS: CIPROFLOXACIN 250 MG TABLET PO (13:00)
== END 2020-12-21 13:15 | disposition home health service (06) | DRG 71 ==
PROVIDERS: Admitting Provider Physical Medicine & Rehabilitation; PCP Nurse Practitioner Family; Visit Provider Physical Medicine & Rehabilitation
DX: G93.41 Metabolic encephalopathy (principal); A87.9 Viral meningitis, unspecified; N39.0 Urinary tract infection, site not specified; R13.10 Dysphagia, unspecified; R33.9 Retention of urine, unspecified; E78.5 Hyperlipidemia, unspecified; E87.8 Other disorders of electrolyte and fluid balance, not elsewhere classified; E55.9 Vitamin D deficiency, unspecified; E87.6 Hypokalemia; F41.8 Other specified anxiety disorders; I10 Essential (primary) hypertension; G47.00 Insomnia, unspecified; E03.9 Hypothyroidism, unspecified; B96.5 Pseudomonas (aeruginosa) (mallei) (pseudomallei) as the cause of diseases classified elsewhere
CPT/HCPCS: 36415; 80048; 80053; 81001; 81003; 84132; 84439; 84443; 85025; 87077; 87086; 87088; 87186; 92507; 92523; 97110; 97116; 97129; 97130; 97161; 97165; 97530; 97535; A9270; J1650

== ENCOUNTER 2020-12-24 14:45 | Outpatient (NON) | payer MEDICARE, SELFPAY ==
[2020-12-24 15:02] LABS: Basophils Absolute Auto 0.03 K/mm3 (0.00-0.10); Basophils Percent Auto 0.4 % (0.0-1.0); Eosinophils Absolute Auto 0.07 K/mm3 (0.02-0.50); Hematocrit 34.1 % (35.0-42.0); Hemoglobin 11.2 g/dL (11.7-13.8); Immature Granulocyte Absolute 0.01 K/mm3 (0.00-0.00); Immature Granulocyte Percent A 0.1 % (0.0-0.0); Lymphocytes Absolute Auto 2.06 K/mm3 (1.10-4.50); Lymphocytes Percent Auto 30.4 % (18.0-42.0); Mean Corpuscular HGB Conc 32.8 g/dL (32.0-36.0); Mean Corpuscular Hemoglobin 30.2 pg (27.0-31.0); Mean Corpuscular Volume 91.9 fL (78.0-102.0); Mean Platelet Volume 10.4 fl (9.2-11.8); Monocytes Absolute Auto 0.42 K/mm3 (0.10-0.90); Monocytes Percent Auto 6.2 % (2.0-11.0); Neutrophils Absolute Auto 4.2 K/mm3 (1.7-7.2); Neutrophils Percent Auto 61.9 % (50.0-70.0); Platelet Count Result 320 K/mm3 (150-420); Red Blood Count 3.71 M/mm3 (4.20-5.40); Red Cell Distribution Width 16.5 % (11.6-14.4); White Blood Count 6.8 K/mm3 (4.8-10.8)
[2020-12-24 15:28] LABS: Anion Gap 9 mmol/L (8-16); Blood Urea Nitrogen 13 mg/dL (7-18); Carbon Dioxide 27 mmol/L (21-32); Chloride 103 mmol/L (98-108); Estimated Glomerular Filt Rate 46; Glucose 125 mg/dL (70-99); Osmolality Calculated 289 mOsm/kg (285-295); Sodium 139 mmol/L (136-145)
[2020-12-24 15:33] LABS: Potassium 4.4 mmol/L (3.5-5.1)
== END 2020-12-24 14:46 | disposition home or self-care (01) ==
LOC: CHSHH 14:49
PROVIDERS: Visit Provider Nurse Practitioner Family
DX: A87.9 Viral meningitis, unspecified (principal); G93.41 Metabolic encephalopathy; E87.8 Other disorders of electrolyte and fluid balance, not elsewhere classified
CPT/HCPCS: 36415; 80048; 85025

== ENCOUNTER 2020-12-27 14:33 | Outpatient (NON) | payer MEDICARE, SELFPAY ==
[2020-12-27 15:25] LABS: Anion Gap 9 mmol/L (8-16); Blood Urea Nitrogen 14 mg/dL (7-18); Calcium 8.7 mg/dL (8.5-10.1); Carbon Dioxide 26 mmol/L (21-32); Chloride 103 mmol/L (98-108); Estimated Glomerular Filt Rate 55; Glucose 120 mg/dL (70-99); Osmolality Calculated 287 mOsm/kg (285-295); Sodium 138 mmol/L (136-145)
== END 2020-12-27 14:34 | disposition home or self-care (01) ==
LOC: CHSLAB 14:38
PROVIDERS: PCP Nurse Practitioner Family; Visit Provider Nurse Practitioner Family
DX: A87.9 Viral meningitis, unspecified (principal); G93.41 Metabolic encephalopathy; E87.8 Other disorders of electrolyte and fluid balance, not elsewhere classified; I10 Essential (primary) hypertension
CPT/HCPCS: 36415; 80048

== ENCOUNTER 2020-12-31 14:10 | Outpatient (NON) | payer MEDICARE, SELFPAY ==
[2020-12-31 14:29] LABS: Basophils Absolute Auto 0.04 K/mm3 (0.00-0.10); Basophils Percent Auto 0.5 % (0.0-1.0); Eosinophils Absolute Auto 0.06 K/mm3 (0.02-0.50); Eosinophils Percent Auto 0.7 % (1.0-6.0); Hematocrit 33.2 % (35.0-42.0); Hemoglobin 11.1 g/dL (11.7-13.8); Immature Granulocyte Absolute 0.02 K/mm3 (0.00-0.00); Immature Granulocyte Percent A 0.2 % (0.0-0.0); Lymphocytes Absolute Auto 1.96 K/mm3 (1.10-4.50); Lymphocytes Percent Auto 24.3 % (18.0-42.0); Mean Corpuscular HGB Conc 33.4 g/dL (32.0-36.0); Mean Corpuscular Volume 92.7 fL (78.0-102.0); Mean Platelet Volume 10.7 fl (9.2-11.8); Neutrophils Absolute Auto 5.6 K/mm3 (1.7-7.2); Neutrophils Percent Auto 69.3 % (50.0-70.0); Platelet Count Result 230 K/mm3 (150-420); Red Blood Count 3.58 M/mm3 (4.20-5.40); Red Cell Distribution Width 15.9 % (11.6-14.4); White Blood Count 8.1 K/mm3 (4.8-10.8)
[2020-12-31 14:43] LABS: Anion Gap 10 mmol/L (8-16); Blood Urea Nitrogen 14 mg/dL (7-18); Calcium 8.8 mg/dL (8.5-10.1); Carbon Dioxide 26 mmol/L (21-32); Chloride 103 mmol/L (98-108); Estimated Glomerular Filt Rate 52; Glucose 115 mg/dL (70-99); Osmolality Calculated 289 mOsm/kg (285-295); Potassium 4.2 mmol/L (3.5-5.1); Sodium 139 mmol/L (136-145)
[2020-12-31 14:51] LABS: Add Urine Microscopic? NO; Appearance Urine Clear (Clear); Bilirubin Urine Negative (Negative); Blood Urine Negative (Negative); Color Urine Yellow (Yellow); Glucose Urine UA Negative (Negative); Ketones Urine Negative (Negative); Leukocyte Esterase Ur Negative LEU/UL (Negative); Nitrate Urine Negative (Negative); Protein Urine Negative (Negative); Specific Grav Ur 1.015 (1.010-1.020); Urobilinogen Urine 0.2 mg/dL (0.2-1.0)
== END 2020-12-31 14:11 | disposition home or self-care (01) ==
LOC: CHSHH 14:12
PROVIDERS: Visit Provider Nurse Practitioner Family
DX: A87.9 Viral meningitis, unspecified (principal); G93.41 Metabolic encephalopathy; E87.8 Other disorders of electrolyte and fluid balance, not elsewhere classified; I10 Essential (primary) hypertension
CPT/HCPCS: 36415; 80048; 81003; 85025

== ENCOUNTER 2021-01-10 11:46 | Outpatient (NON) | payer MEDICARE, SELFPAY ==
[2021-01-10 12:07] LABS: Basophils Absolute Auto 0.03 K/mm3 (0.00-0.10); Basophils Percent Auto 0.6 % (0.0-1.0); Eosinophils Absolute Auto 0.04 K/mm3 (0.02-0.50); Eosinophils Percent Auto 0.8 % (1.0-6.0); Hematocrit 33.3 % (35.0-42.0); Hemoglobin 11.1 g/dL (11.7-13.8); Immature Granulocyte Absolute 0.02 K/mm3 (0.00-0.00); Immature Granulocyte Percent A 0.4 % (0.0-0.0); Lymphocytes Absolute Auto 1.77 K/mm3 (1.10-4.50); Lymphocytes Percent Auto 33.5 % (18.0-42.0); Mean Corpuscular HGB Conc 33.3 g/dL (32.0-36.0); Mean Corpuscular Hemoglobin 30.3 pg (27.0-31.0); Mean Platelet Volume 9.6 fl (9.2-11.8); Monocytes Absolute Auto 0.33 K/mm3 (0.10-0.90); Monocytes Percent Auto 6.3 % (2.0-11.0); Neutrophils Absolute Auto 3.1 K/mm3 (1.7-7.2); Neutrophils Percent Auto 58.4 % (50.0-70.0); Platelet Count Result 373 K/mm3 (150-420); Red Blood Count 3.66 M/mm3 (4.20-5.40); Red Cell Distribution Width 14.9 % (11.6-14.4); White Blood Count 5.3 K/mm3 (4.8-10.8)
[2021-01-10 12:18] LABS: Anion Gap 11 mmol/L (8-16); Blood Urea Nitrogen 15 mg/dL (7-18); Calcium 8.9 mg/dL (8.5-10.1); Carbon Dioxide 26 mmol/L (21-32); Chloride 102 mmol/L (98-108); Estimated Glomerular Filt Rate 47; Glucose 102 mg/dL (70-99); Osmolality Calculated 288 mOsm/kg (285-295); Potassium 4.1 mmol/L (3.5-5.1); Sodium 139 mmol/L (136-145)
== END 2021-01-10 11:47 | disposition home or self-care (01) ==
LOC: CHSHH 11:51
PROVIDERS: Visit Provider Nurse Practitioner Family
DX: A87.9 Viral meningitis, unspecified (principal); G93.41 Metabolic encephalopathy; E87.8 Other disorders of electrolyte and fluid balance, not elsewhere classified; I10 Essential (primary) hypertension
CPT/HCPCS: 36415; 80048; 85025

== ENCOUNTER 2021-01-22 14:18 | Outpatient (CLI) | payer MEDICARE, SELFPAY ==
[2021-01-22 16:10] LABS: Alanine Aminotransferase 28 U/L (14-59); Albumin Level 3.4 g/dL (3.4-5.0); Alkaline Phosphatase 55 U/L (46-116); Anion Gap 11 mmol/L (8-16); Aspartate Amino Transferase 21 U/L (15-37); Bilirubin,Total 0.2 mg/dL (0.00-1.00); Blood Urea Nitrogen 16 mg/dL (7-18); Carbon Dioxide 27 mmol/L (21-32); Chloride 103 mmol/L (98-108); Estimated Glomerular Filt Rate > 60; Glucose 84 mg/dL (70-99); Osmolality Calculated 292 mOsm/kg (285-295); Sodium 141 mmol/L (136-145); Total Protein 6.3 g/dL (6.4-8.2)
== END 2021-01-22 14:19 | disposition home or self-care (01) ==
PROVIDERS: PCP Nurse Practitioner Family; Visit Provider Nurse Practitioner Family
DX: E87.8 Other disorders of electrolyte and fluid balance, not elsewhere classified (principal)
CPT/HCPCS: 36415; 80053

== ENCOUNTER 2021-03-20 10:00 | Outpatient (RCR) | payer MEDICARE, SELFPAY | END 2021-03-26 23:59 | disposition home or self-care (01) | LOC: CHSSENLIFE 10:00 | PROVIDERS: PCP Nurse Practitioner Family; Visit Provider Psychiatry & Neurology Psychiatry | DX: F33.1 Major depressive disorder, recurrent, moderate (principal); F41.1 Generalized anxiety disorder | CPT/HCPCS: 90792; 90837; 90853; 99213; G0463 ==

== ENCOUNTER 2021-03-26 14:21 | Outpatient (CLI) | payer MEDICARE, SELFPAY ==
[2021-03-26 14:45] LABS: Basophils Absolute Auto 0.04 K/mm3 (0.00-0.10); Basophils Percent Auto 0.6 % (0.0-1.0); Eosinophils Absolute Auto 0.07 K/mm3 (0.02-0.50); Eosinophils Percent Auto 1.1 % (1.0-6.0); Hematocrit 37.7 % (35.0-42.0); Hemoglobin 12.5 g/dL (11.7-13.8); Immature Granulocyte Absolute 0.01 K/mm3 (0.00-0.00); Immature Granulocyte Percent A 0.2 % (0.0-0.0); Lymphocytes Absolute Auto 2.06 K/mm3 (1.10-4.50); Mean Corpuscular HGB Conc 33.2 g/dL (32.0-36.0); Mean Corpuscular Hemoglobin 29.7 pg (27.0-31.0); Mean Corpuscular Volume 89.5 fL (78.0-102.0); Mean Platelet Volume 9.8 fl (9.2-11.8); Monocytes Absolute Auto 0.62 K/mm3 (0.10-0.90); Monocytes Percent Auto 9.9 % (2.0-11.0); Neutrophils Absolute Auto 3.4 K/mm3 (1.7-7.2); Neutrophils Percent Auto 55.2 % (50.0-70.0); Platelet Count Result 250 K/mm3 (150-420); Red Blood Count 4.21 M/mm3 (4.20-5.40); Red Cell Distribution Width 12.9 % (11.6-14.4); White Blood Count 6.2 K/mm3 (4.8-10.8)
[2021-03-26 15:07] LABS: Alanine Aminotransferase 25 U/L (14-59); Albumin Level 3.5 g/dL (3.4-5.0); Alkaline Phosphatase 52 U/L (46-116); Anion Gap 9 mmol/L (8-16); Aspartate Amino Transferase 19 U/L (15-37); Bilirubin,Total 0.2 mg/dL (0.00-1.00); Blood Urea Nitrogen 20 mg/dL (7-18); Calcium 8.9 mg/dL (8.5-10.1); Carbon Dioxide 30 mmol/L (21-32); Chloride 104 mmol/L (98-108); Cholesterol 207 mg/dL (0-200); Estimated Glomerular Filt Rate 57; Free T4 Free Thyroxine 0.77 ng/dL (0.76-1.46); Glucose 92 mg/dL (70-99); HDL Direct 56 mg/dL (40-60); LDL Cholesterol Calculated 115 mg/dL (<130); Osmolality Calculated 298 mOsm/kg (285-295); Potassium 4.2 mmol/L (3.5-5.1); Sodium 143 mmol/L (136-145); Thyroid Stimulating Hormone 3.28 uIU/mL (0.36-3.74); Total Protein 6.7 g/dL (6.4-8.2); Triglycerides 178 mg/dL (0-150)
[2021-03-29 06:45] LABS: Vitamin D 25 Hydroxy 47 ng/mL (30-100)
== END 2021-03-26 14:22 | disposition home or self-care (01) ==
LOC: CHSLAB 14:23
PROVIDERS: PCP Nurse Practitioner Family; Visit Provider Nurse Practitioner Family
DX: E78.5 Hyperlipidemia, unspecified (principal); I10 Essential (primary) hypertension; E03.9 Hypothyroidism, unspecified; Z79.899 Other long term (current) drug therapy; Z00.00 Encounter for general adult medical examination without abnormal findings; E55.9 Vitamin D deficiency, unspecified
CPT/HCPCS: 36415; 80053; 80061; 82306; 84439; 84443; 85025

== ENCOUNTER 2021-06-25 10:00 | Outpatient (RCR) | payer MEDICARE, SELFPAY | END 2021-06-25 23:59 | disposition home or self-care (01) | LOC: CHSSENLIFE 10:00 | PROVIDERS: PCP Nurse Practitioner Family; Visit Provider Psychiatry & Neurology Psychiatry | DX: F33.1 Major depressive disorder, recurrent, moderate (principal); F41.1 Generalized anxiety disorder | CPT/HCPCS: 90853; 99213; G0463 ==

== ENCOUNTER 2021-07-31 13:00 | Outpatient (RCR) | payer MEDICARE, SELFPAY | END 2021-08-04 09:55 | disposition home or self-care (01) | LOC: CHSSENLIFE 13:00 | PROVIDERS: PCP Nurse Practitioner Family; Visit Provider Psychiatry & Neurology Psychiatry | DX: F33.1 Major depressive disorder, recurrent, moderate (principal); F41.1 Generalized anxiety disorder | CPT/HCPCS: 90832; 90837; 90853; 99213; G0463 ==

== ENCOUNTER 2022-08-17 14:06 | Outpatient (CLI) | payer MEDICARE, SELFPAY ==
[2022-08-17 14:17] LABS: Basophils Absolute Auto 0.05 K/mm3 (0.00-0.10); Basophils Percent Auto 0.8 % (0.0-1.0); Eosinophils Absolute Auto 0.09 K/mm3 (0.02-0.50); Eosinophils Percent Auto 1.4 % (1.0-6.0); Hematocrit 44.1 % (35.0-42.0); Hemoglobin 14.3 g/dL (11.7-13.8); Immature Granulocyte Absolute 0.01 K/mm3 (0.00-0.00); Immature Granulocyte Percent A 0.2 % (0.0-0.0); Lymphocytes Absolute Auto 2.07 K/mm3 (1.10-4.50); Lymphocytes Percent Auto 32.7 % (18.0-42.0); Mean Corpuscular HGB Conc 32.4 g/dL (32.0-36.0); Mean Corpuscular Hemoglobin 28.7 pg (27.0-31.0); Mean Corpuscular Volume 88.6 fL (78.0-102.0); Mean Platelet Volume 9.8 fl (9.2-11.8); Monocytes Absolute Auto 0.44 K/mm3 (0.10-0.90); Neutrophils Absolute Auto 3.7 K/mm3 (1.7-7.2); Neutrophils Percent Auto 57.9 % (50.0-70.0); Platelet Count Result 268 K/mm3 (150-420); Red Blood Count 4.98 M/mm3 (4.20-5.40); Red Cell Distribution Width 13.2 % (11.6-14.4); White Blood Count 6.3 K/mm3 (4.8-10.8)
[2022-08-17 14:50] LABS: Alanine Aminotransferase 25 U/L (14-59); Albumin Level 3.9 g/dL (3.4-5.0); Alkaline Phosphatase 58 U/L (46-116); Anion Gap 7 mmol/L (8-16); Aspartate Amino Transferase 21 U/L (15-37); Bilirubin,Total 0.3 mg/dL (0.00-1.00); Blood Urea Nitrogen 18 mg/dL (7-18); Carbon Dioxide 31 mmol/L (21-32); Chloride 102 mmol/L (98-108); Cholesterol 217 mg/dL (0-200); Estimated Glomerular Filt Rate 52; Free T4 Free Thyroxine 0.84 ng/dL (0.76-1.46); Glucose 92 mg/dL (70-99); HDL Direct 58 mg/dL (40-60); LDL Cholesterol Calculated 124 mg/dL (<130); Osmolality Calculated 291 mOsm/kg (285-295); Potassium 4.1 mmol/L (3.5-5.1); Sodium 140 mmol/L (136-145); Total Protein 7.2 g/dL (6.4-8.2); Triglycerides 173 mg/dL (0-150)
[2022-08-20 16:57] LABS: Vitamin D 25 Hydroxy 52 ng/mL (30-100)
== END 2022-08-17 14:07 | disposition home or self-care (01) ==
LOC: CHSLAB 14:08
PROVIDERS: PCP Nurse Practitioner Family; Visit Provider Nurse Practitioner Family
DX: E55.9 Vitamin D deficiency, unspecified (principal); Z13.6 Encounter for screening for cardiovascular disorders; E78.5 Hyperlipidemia, unspecified; E03.9 Hypothyroidism, unspecified; I10 Essential (primary) hypertension; Z79.899 Other long term (current) drug therapy
CPT/HCPCS: 36415; 80053; 80061; 82306; 84439; 84443; 85025

== ENCOUNTER 2023-06-08 11:01 | Outpatient (CLI) | payer MEDICARE, SELFPAY ==
[2023-06-08 11:16] LABS: Basophils Absolute Auto 0.05 K/mm3 (0.00-0.10); Basophils Percent Auto 0.9 % (0.0-1.0); Eosinophils Absolute Auto 0.07 K/mm3 (0.02-0.50); Eosinophils Percent Auto 1.2 % (1.0-6.0); Hematocrit 41.4 % (35.0-42.0); Hemoglobin 13.7 g/dL (11.7-13.8); Immature Granulocyte Absolute 0.01 K/mm3 (0.00-0.00); Immature Granulocyte Percent A 0.2 % (0.0-0.0); Lymphocytes Absolute Auto 1.84 K/mm3 (1.10-4.50); Lymphocytes Percent Auto 32.6 % (18.0-42.0); Mean Corpuscular HGB Conc 33.1 g/dL (32.0-36.0); Mean Corpuscular Hemoglobin 29.5 pg (27.0-31.0); Mean Corpuscular Volume 89.2 fL (78.0-102.0); Mean Platelet Volume 9.4 fl (9.2-11.8); Monocytes Absolute Auto 0.39 K/mm3 (0.10-0.90); Monocytes Percent Auto 6.9 % (2.0-11.0); Neutrophils Absolute Auto 3.3 K/mm3 (1.7-7.2); Neutrophils Percent Auto 58.2 % (50.0-70.0); Platelet Count Result 265 K/mm3 (150-420); Red Blood Count 4.64 M/mm3 (4.20-5.40); Red Cell Distribution Width 13.2 % (11.6-14.4); White Blood Count 5.6 K/mm3 (4.8-10.8)
[2023-06-08 12:03] LABS: Alanine Aminotransferase 22 U/L (14-59); Albumin Level 3.5 g/dL (3.4-5.0); Alkaline Phosphatase 56 U/L (46-116); Anion Gap 9 mmol/L (8-16); Aspartate Amino Transferase 21 U/L (15-37); Bilirubin,Total 0.3 mg/dL (0.00-1.00); Blood Urea Nitrogen 18 mg/dL (7-18); Calcium 9.3 mg/dL (8.5-10.1); Carbon Dioxide 29 mmol/L (21-32); Chloride 104 mmol/L (98-108); Cholesterol 206 mg/dL (0-200); Estimated Glomerular Filt Rate 58; Free T4 Free Thyroxine 0.82 ng/dL (0.76-1.46); Glucose 86 mg/dL (70-99); HDL Direct 54 mg/dL (40-60); LDL Cholesterol Calculated 117 mg/dL (<130); Osmolality Calculated 294 mOsm/kg (285-295); Potassium 4.2 mmol/L (3.5-5.1); Sodium 142 mmol/L (136-145); Thyroid Stimulating Hormone 6.02 uIU/mL (0.36-3.74); Total Protein 6.6 g/dL (6.4-8.2); Triglycerides 177 mg/dL (0-150)
[2023-06-11 12:01] LABS: Vitamin D 25 Hydroxy 44 ng/mL (30-100)
== END 2023-06-08 11:02 | disposition home or self-care (01) ==
LOC: CHSLAB 11:04
PROVIDERS: PCP Nurse Practitioner Family; Visit Provider Nurse Practitioner Family
DX: E78.5 Hyperlipidemia, unspecified (principal); E03.9 Hypothyroidism, unspecified; Z79.899 Other long term (current) drug therapy; E55.9 Vitamin D deficiency, unspecified; I10 Essential (primary) hypertension; Z13.6 Encounter for screening for cardiovascular disorders
CPT/HCPCS: 36415; 80053; 80061; 82306; 84439; 84443; 85025

== ENCOUNTER 2023-09-06 07:42 | Outpatient (CLI) | payer MEDICARE, SELFPAY ==
--- NOTE | ~2023-09-06 | MM_ITS ---
EXAMINATION: MM screening ian BI w jose HISTORY: Screening mammogram TECHNIQUE: Craniocaudal and mediolateral oblique 3-D tomosynthesis images were obtained and synthetic 2-D images were generated. CAD analysis was submitted and interpreted. COMPARISON: 07/11/2019 BREAST PARENCHYMAL COMPOSITION: The breasts are heterogeneously dense, which may obscure small masses . FINDINGS: Again noted are stable focal asymmetries of the breasts. No suspicious mass, calcification, or architectural distortion are identified in either breast to suggest malignancy. There has been no suspicious interval change. IMPRESSION: 1. No mammographic evidence of malignancy. 2. Recommend routine screening mammography while the patient remains in good health. BI-RADS Category 2: Benign finding(s). Reviewed, dictated and finalized at location A. [facility] IMPRESSION: 1. No mammographic evidence of malignancy. 2. Recommend routine screening mammography while the patient remains in good he alth. BI-RADS Category 2: Benign finding(s).
--- NOTE | ~2023-09-06 | DEXA_ITS ---
Bone Density Report Name: MARJORIE LARA Age: 83 Sex: Female Ethnicity: White Date of : 1940 Indication: postmenopausal; screening for osteoporosis; height loss; cancer; hysterectomy; Referring Provider: Elma Tatum Study: Bone densitometry was performed. Exam Date: September 06, 2023 Accession number: [id number] Bone Density: Region BMD T-score Z-score Classification AP Spine(L1-L4) 0.798 -2.3 0.5 Osteopenia Femoral Neck (Left) 0.659 -1.7 0.6 Osteopenia Total Hip (Left) 0.789 -1.3 0.9 Osteopenia Femoral Neck (Right) 0.708 -1.3 1.1 Osteopenia Total Hip (Right) 0.819 -1.0 1.1 Normal Femoral Neck Mean 0.683 -1.5 0.9 Osteopenia Total Hip Mean 0.804 -1.1 1.0 Osteopenia World Health Organization criteria for BMD impression classify patients as: Normal (T-score at or above -1.0), Osteopenia (T-score between -1.0 and -2.5), or Osteoporosis (T-score at or below -2.5). 10-year Fracture Risk(1): Major Osteoporotic Fracture 14% Hip Fracture 3.9% Reported Risk Factors: [place] (), Neck BMD=0.659, BMI=23.0 (1) FRAX(R) Version 3.08. Fracture probability calculated for an untreated patient. Fracture probability may be lower if the patient has received treatment. Clinical Information Provided by Patient: Has used the following medications: HRT (i.e. estrogen/hormone therapy), Vitamin D, multi Has the following medical conditions: Cancer, Hysterectomy Patient maximum height was 64 Menopause Age: 58 No regular weight bearing exercise Onset of menses at age 15 Number of children 3 Impression: The patient has low bone mass, based on the Total Spine T-score. Discussion: BONE DENSITY IS LOW AT ONE OR MORE SKELETAL SITES. This patient's lowest T-score is low at one or more skeletal sites. It meets the World Health Organization's (WHO) criteria for ?low bone mass? (T-score between -1.0 and -2.5). The patient's 10-year risk of fracture as calculated by FRAX is less than the threshold where pharmacological therapy is recommended by the National Osteoporosis Foundation (NOF). However, all treatment decisions require clinical judgment and consideration of individual patient factors, including patient preferences, comorbidities, previous drug use, risk factors not captured in the FRAX model (e.g., frailty, falls, vitamin D deficiency, increased bone turnover, interval significant decline in bone density) and possible under or overestimation of fracture risk by FRAX. The patient should follow a healthful lifestyle (good nutrition with adequate calcium and vitamin D, and appropriate weight-bearing exercise). Follow-Up: Consider repeating this study in 2 to 3 years to reassess this patient's status, or sooner if there is some new clinical indication. Reported by: Dr. Joey Davis on 09/06/2023 8:14:00 AM.
== END 2023-09-06 07:43 | disposition home or self-care (01) ==
LOC: CHSIMG 07:43
PROVIDERS: PCP Nurse Practitioner Family; Visit Provider Nurse Practitioner Family
DX: Z12.31 Encounter for screening mammogram for malignant neoplasm of breast (principal); Z78.0 Asymptomatic menopausal state; M85.89 Other specified disorders of bone density and structure, multiple sites
CPT/HCPCS: 77063; 77067; 77080

== ENCOUNTER 2024-06-15 13:10 | Outpatient (CLI) | payer MEDICARE, SELFPAY ==
[2024-06-15 13:23] LABS: Basophils Absolute Auto 0.04 K/mm3 (0.00-0.10); Basophils Percent Auto 0.7 % (0.0-1.0); Eosinophils Absolute Auto 0.05 K/mm3 (0.02-0.50); Eosinophils Percent Auto 0.8 % (1.0-6.0); Hematocrit 41.8 % (35.0-42.0); Hemoglobin 13.8 g/dL (11.7-13.8); Immature Granulocyte Absolute 0.01 K/mm3 (0.00-0.00); Immature Granulocyte Percent A 0.2 % (0.0-0.0); Lymphocytes Absolute Auto 2.05 K/mm3 (1.10-4.50); Lymphocytes Percent Auto 34.5 % (18.0-42.0); Mean Corpuscular Hemoglobin 28.7 pg (27.0-31.0); Mean Corpuscular Volume 86.9 fL (78.0-102.0); Mean Platelet Volume 9.4 fl (9.2-11.8); Monocytes Absolute Auto 0.42 K/mm3 (0.10-0.90); Monocytes Percent Auto 7.1 % (2.0-11.0); Neutrophils Absolute Auto 3.38 K/mm3 (1.70-7.20); Neutrophils Percent Auto 56.7 % (50.0-70.0); Platelet Count Result 252 K/mm3 (150-420); Red Blood Count 4.81 M/mm3 (4.20-5.40); Red Cell Distribution Width 13.2 % (11.6-14.4)
[2024-06-15 14:16] LABS: Alanine Aminotransferase 28 U/L (14-59); Albumin Level 3.7 g/dL (3.4-5.0); Alkaline Phosphatase 66 U/L (46-116); Anion Gap 9 mmol/L (4-12); Aspartate Amino Transferase 22 U/L (15-37); Bilirubin,Total 0.3 mg/dL (0.00-1.00); Blood Urea Nitrogen 18 mg/dL (7-18); Calcium 9.2 mg/dL (8.5-10.1); Carbon Dioxide 29 mmol/L (21-32); Chloride 102 mmol/L (98-108); Estimated Glomerular Filt Rate 50; Free T4 Free Thyroxine 0.78 ng/dL (0.76-1.46); Glucose 102 mg/dL (70-99); HDL Direct 56 mg/dL (40-60); Osmolality Calculated 291 mOsm/kg (285-295); Potassium 3.9 mmol/L (3.5-5.1); Sodium 140 mmol/L (136-145); Total Protein 6.7 g/dL (6.4-8.2); Triglycerides 145 mg/dL (0-150)
[2024-06-15 15:01] LABS: Cholesterol 192 mg/dL (0-200); LDL Cholesterol Calculated 107 mg/dL (<130)
[2024-06-16 09:13] LABS: Vitamin D 25 Hydroxy 60 ng/mL (30-100)
[2024-06-16 09:53] LABS: Total Triiodothyronine (T3) 95 ng/dL (76-181)
== END 2024-06-15 13:11 | disposition home or self-care (01) ==
LOC: CHSLAB 13:11
PROVIDERS: PCP Nurse Practitioner Family; Visit Provider Nurse Practitioner Family
DX: E03.9 Hypothyroidism, unspecified (principal); E78.5 Hyperlipidemia, unspecified; E55.9 Vitamin D deficiency, unspecified; Z79.899 Other long term (current) drug therapy; R79.89 Other specified abnormal findings of blood chemistry; I10 Essential (primary) hypertension
CPT/HCPCS: 36415; 80053; 80061; 82306; 84439; 84443; 84480; 85025

== ENCOUNTER 2024-07-20 09:21 | Outpatient (CLI) | payer MEDICARE, SELFPAY ==
[2024-07-20 11:40] LABS: Add Urine Microscopic? YES; Bilirubin Urine Negative (Negative); Blood Urine Negative (Negative); Color Urine Light Yellow (Yellow); Glucose Urine UA Negative (Negative); Ketones Urine Negative (Negative); Leukocyte Esterase Ur 2+ (Negative); Nitrate Urine Negative (Negative); Protein Urine Negative (Negative); Urobilinogen Urine 0.2 mg/dL (0.2-1.0)
[2024-07-20 11:45] LABS: Amorphous Sediment Urine Moderate; Appearance Urine Sl Cloudy (Clear); Bacteria Urine 1+ /hpf; RBC Urine None seen /hpf (0-2); Renal Epithelial Cells Urine Few /hpf; Squamous Epithelial Cell Urine Few /hpf (Few)
== END 2024-07-20 09:22 | disposition home or self-care (01) ==
LOC: CHSLAB 09:22
PROVIDERS: PCP Nurse Practitioner Family; Visit Provider Family Medicine
DX: R30.0 Dysuria (principal)
CPT/HCPCS: 81001

== ENCOUNTER 2024-08-16 12:25 | Outpatient (CLI) | payer MEDICARE, SELFPAY ==
[2024-08-16 12:52] LABS: Add Urine Microscopic? YES; Appearance Urine Clear (Clear); Bilirubin Urine Negative (Negative); Blood Urine Negative (Negative); Color Urine Light Yellow (Yellow); Glucose Urine UA Negative (Negative); Ketones Urine Negative (Negative); Leukocyte Esterase Ur Trace LEU/UL (Negative); Nitrate Urine Negative (Negative); Protein Urine Negative (Negative); Specific Grav Ur <= 1.005 (1.010-1.020); Urobilinogen Urine 0.2 mg/dL (0.2-1.0); pH Urine 6.5 (5.0-8.0)
[2024-08-16 13:02] LABS: Bacteria Urine Rare /hpf; RBC Urine None seen /hpf (0-2); Squamous Epithelial Cell Urine Rare /hpf (Few); WBC Urine 0-3 /hpf (0-3)
== END 2024-08-16 12:26 | disposition home or self-care (01) ==
LOC: CHSLAB 12:26
PROVIDERS: PCP Nurse Practitioner Family; Visit Provider Nurse Practitioner Family
DX: Z87.898 Personal history of other specified conditions (principal)
CPT/HCPCS: 81001

== ENCOUNTER 2024-09-22 00:17 | Day surgery (SDC) | payer MEDICARE, SELFPAY ==
[2024-09-07 09:59] VITALS: BMI 21.6
--- OUTSIDE RECORDS SUMMARY | 2024-09-22 00:21 | XMS_ITS | Encounter Summary ---
Author Organization [facility] Address [address] [place] [address] Care Team Providers Care Professional Tutor Name Role Phone Unavailable Primary Care Provider Unavailabl e Encounter Details Date Type Department Care Team (Late st Contact Info) Description 02/13/2020 Lab Requisition [facility] Care DermPath Lab [address] [place] [phone] Estefania Royal MD [address] [facility] [address] [place] [address] Social History Tobacco Use Types Packs/Day Years Used Date Smoking Tobacco: Never Assessed Sex and Gender Information Value Date Recorded Sex Assigned at Not on file Gender Identity Not on file Sexual Orientation Not on file documented as of this encounter Plan of Treatment Not on file documented as of this encounter Visit Diagnoses Not on filedocumented in this encounter
--- OUTSIDE RECORDS SUMMARY | 2024-09-22 00:21 | XMS_ITS | Encounter Summary ---
Author Organization [facility] Address [address] [facility] [place] [address] Care Team Providers Care Editor City Name Role Phone Unavailable Primary Care Provider Unavailabl e Encounter Details Date Type Department Care Team (Late st Contact Info) Description 08/16/2018 Lab Requisition [facility] Care DermPath Lab [address] [facility] [place] [address] Deja Lynn MD [address] [facility] [address] [place] [address] Social History Tobacco Use Types Packs/Day Years Used Date Smoking Tobacco: Never Assessed Sex and Gender Information Value Date Recorded Sex Assigned at Not on file Gender Identity Not on file Sexual Orientation Not on file documented as of this encounter Plan of Treatment Not on file documented as of this encounter Procedures Procedure Name Priority Date/Time Associated Diagnosis Comments DERMATOPATH TECHNICAL REPORT Routine 08/15/2018 12:00 AM RAILROAD SURVEYOR documented in this encounter Results * DERMATOPATH TECHNICAL REPORT (08/15/2018 12:00 AM RAILROAD SURVEYOR) Case Report Dermatopathology Report Case: [id number] Authorizing Provider: Deja Lynn MD Collected: 08/15/2018 12:00 AM Pathologist: Ronaldo Vanessa MD Received: 08/16/2018 06:46 AM Specimen: Skin, left index finger 9 12:31 PM RAILROAD SURVEYOR DERMATOPATHOLOGY LABORATORY Clinical History VV vs SCC vs Cyst. Firm somewhat verrucous papule. 9 12:31 PM RAILROAD SURVEYOR DERMATOPATHOLOGY LABORATORY Gross Description Specimen A: Received is one formalin filled container labeled with the patient's name and designated left index finger. The specimen consists of a shave (2 pieces) measuring [id number] & 3d5k4xd. Jar 0. [facility] Dermatopathology Laboratory performed the technical component only. 9 12:31 PM [facility] DERMATOPATHOLOGY LABORATORY Embedded Images 12:31 PM [facility] DERMATOPATHOLOGY LABORATORY DISCLAIMER An external and internal positive and negative controls are appropriate for the histochemical, immunohistochemical and immunofluorescence stain(s) in this case (if any), except where stated explicitly. The performance characteristics of the stain(s) cited in this report were developed and its performance characteristic determined by the Dermatopathology Laboratory at [facility], directed by Dr. Duarte Vanessa. These tests need not be, and therefore are not, approved by the [place] Food and Drug Administration. The tests are used for clinical purposes. 9 12:31 PM [facility] DERMATOPATHOLOGY LABORATORY Pathology/Cytolog y TISSUE SPECIMEN FROM SKIN / Unknown 08/15/2018 08/16/2018 6:46 AM RAILROAD SURVEYOR Deja Lynn MD LAB - PATHOLOGY/CYT OLOGY ORDERABLES DERMATOPATHOLOGY LABORATORY [facility] - Department of Dermatology [address] [place] [address], 5th Floor Lab [address] [phone] documented in this encounter Visit Diagnoses Not on filedocumented in this encounter
--- OUTSIDE RECORDS SUMMARY | 2024-09-22 00:21 | XMS_ITS | Encounter Summary ---
Author Organization [facility] Address [address] [facility] [place] [address] Care Team Providers Care Instrument Repair Specialist Name Role Phone Unavailable Primary Care Provider Unavailabl e Encounter Details Date Type Department Care Team (Late st Contact Info) Description 08/23/2018 Lab Requisition [facility] Care DermPath Lab [address] [facility] [place] [phone] Leatha Ansari DO [address] [facility] [address] [place] [address] Social History Tobacco Use Types Packs/Day Years Used Date Smoking Tobacco: Never Assessed Sex and Gender Information Value Date Recorded Sex Assigned at Not on file Gender Identity Not on file Sexual Orientation Not on file documented as of this encounter Plan of Treatment Not on file documented as of this encounter Procedures Procedure Name Priority Date/Time Associated Diagnosis Comments DERMPATH SLIDE CONSULT Routine 08/23/2018 12:00 AM STEAM AND POWER SUPERINTENDENT documented in this encounter Results * DERMPATH SLIDE CONSULT (08/23/2018 12:00 AM STEAM AND POWER SUPERINTENDENT) Case Report Dermatopathology Report Case: [id number] Authorizing Provider: Leatha Ansari DO Collected: 08/23/2018 12:00 AM Pathologist: Ronaldo Vanessa MD Received: 08/23/2018 11:20 AM Specimen: Slide(s), Left index fnger, OSC# [id number] 9 2:21 PM STEAM AND POWER SUPERINTENDENT DERMATOPATHOLOGY LABORATORY Final Diagnosis Specimen A. 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 Leatha Ansari, a consult will be performed on 3 slide(s) labeled [id number]. 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 All slides returned. Any additional sections, special stains or immunohistochemical stains performed by our laboratory will be kept here on file. 2:21 PM [facility] DERMATOPATHOLOGY LABORATORY Microscopic Description Specimen A. Slide(s), Left index fnger, OSC# [id number]: The epidermis is remarkable. Keratin fragments within the dermis are surrounded by a granulomatous inflammatory infiltrate. There are focal lipidized histiocytes. Additional deeper sections were reviewed. 2:21 PM [facility] DERMATOPATHOLOGY LABORATORY Disclaimer An external and internal positive and negative controls are appropriate for the histochemical, immunohistochemical and immunofluorescence stain(s) in this case (if any), except where stated explicitly. The performance characteristics of the stain(s) cited in this report were developed and its performance characteristic determined by the Dermatopathology Laboratory at [facility], directed by Dr. Duarte Vanessa. These tests need not be, and therefore are not, approved by the [place] Food and Drug Administration. The tests are used for clinical purposes. Billing Codes Specimen Charges Stain Charges 74671 1 9 2:21 PM [facility] DERMATOPATHOLOGY LABORATORY Embedded Images 2:21 PM [facility] DERMATOPATHOLOGY LABORATORY Pathology/Cytolog y SLIDE / Unknown 08/23/2018 08/23/2018 11:20 AM STEAM AND POWER SUPERINTENDENT Leatha Ansari DO LAB - PATHOLOGY/C YTOLOGY ORDERABLES DERMATOPATHOLOGY LABORATORY [facility] - Department of Dermatology [address] [place] [address], [address] [place] [address], [facility] [phone] documented in this encounter Visit Diagnoses Not on filedocumented in this encounter
--- OUTSIDE RECORDS SUMMARY | 2024-09-22 00:22 | XMS_ITS | Referral Summary ---
Author Organization [facility] Address [address] [place] [address] Care Team Providers Care Ware Cleaner Name Role Phone Unavailable Primary Care Provider Unavailabl e Source Comments [facility],non-owned Affiliates and Associated Physician Practices is amultiple site organization consisting of ambulatory clinics and hospital sitesin [place], [place], [place] and [place]. This disclosure is being madepursuant to the Care Everywhere program and may not contain all information available regarding this patient. Last updated 18.[facility] Session[employer] Social History Tobacco Use Types Packs/Day Years Used Date Smoking Tobacco: Never Assessed Sex and Gender Information Value Date Recorded Sex Assigned at Not on file Gender Identity Not on file Sexual Orientation Not on file Plan of Treatment Not on file
--- OUTSIDE RECORDS SUMMARY | 2024-09-22 00:22 | XMS_ITS | Patient Health Summary ---
Author Organization [facility] Address [address] [place] [address] Care Team Providers Care Physical Security Specialist Name Role Phone Unavailable Primary Care Provider Unavailabl e Note from [facility] [place] [facility] [place]non-owned Affiliates and Associated Physician Practices is amultiple site organization consisting of ambulatory clinics and hospital sitesin [place], [place], [place] and [place]. This disclosure is being madepursuant to the Care Everywhere program and may not contain all information available regarding this patient. Last updated 18.[facility] Social History Tobacco Use Types Packs/Day Years Used Date Smoking Tobacco: Never Assessed Sex and Gender Information Value Date Recorded Sex Assigned at Not on file Gender Identity Not on file Sexual Orientation Not on file Procedures * DERMATOPATHOLOGY(Performed 01/10/2024) * DERMATOPATHOLOGY(Performed 02/12/2020) * DERMPATH SLIDE CONSULT(Performed 08/23/2018) * DERMATOPATH TECHNICAL REPORT(Performed 08/15/2018) Results * DERMATOPATHOLOGY (01/10/2024 8:28 AM CDT) Only the most recent of2 resultswithin the time period is included. Case Report Dermatopathology Report Case: [id number] Authorizing Provider: Estefania Royal MD Collected: 01/10/2024 08:28 AM Ordering Location: [facility] - Received: 01/10/2024 10:51 AM DermPath Lab Pathologist: Shea Best MD Specimen: Skin, right leg 4 4:21 PM CDT DERMATOPATHOLOGY LABORATORY Final Diagnosis Specimen A. 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 The specimen consists of a shave biopsy measuring [id number] mm. Jar 0. 4:21 PM T DERMATOPATHOLOGY LABORATORY Microscopic Description Specimen A. SKIN, right leg: There is alternating orthokeratosis and parakeratosis. Along the undersurface of the epidermis, there are buds of atypical keratinocytes in a disorderly arrangement. There is prominent pigmentation in some of the keratinocytes. [place]-1/Melan-A immunohistochemical stain fails to highlight a melanocytic proliferation. Ki-67 stain highlights an increased proliferative index in the lower epidermis. 4:21 PM T DERMATOPATHOLOGY LABORATORY Disclaimer An external and internal positive and negative controls are appropriate for the histochemical, immunohistochemical and immunofluorescence stain(s) in this case (if any), except where stated explicitly. The performance characteristics of the stain(s) cited in this report were developed and its performance characteristic determined by the Dermatopathology Laboratory at [facility], directed by Dr. Duarte Vanessa. These tests need not be, and therefore are not, approved by the [place] Food and Drug Administration. The tests are used for clinical purposes. Billing Codes Specimen Charges Stain Charges 29024 1 99192 71828 1 1 4:21 PM CDT DERMATOPATHOLOGY LABORATORY Embedded Images 4:21 PM CDT DERMATOPATHOLOGY LABORATORY Pathology/Cytolo gy TISSUE SPECIMEN FROM SKIN / Unknown 01/10/2024 8:28 AM CDT 01/10/2024 10:51 AM CDT Estefania Royal MD LAB - PATHOLOGY/CYTO LOGY ORDERABLES DERMATOPATHOLOGY LABORATORY [facility] - Department of Dermatology [address], [address] [phone] * DERMPATH SLIDE CONSULT (08/23/2018 12:00 AM PROCESS LEAD) Case Report Dermatopathology Report Case: [id number] Authorizing Provider: Leatha Ansari DO Collected: 08/23/2018 12:00 AM Pathologist: Ronaldo Vanessa MD Received: 08/23/2018 11:20 AM Specimen: Slide(s), Left index fnger, OSC# [id number] 2:21 PM [facility] DERMATOPATHOLOGY LABORATORY Final Diagnosis Specimen A. 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 Leatha Ansari, a consult will be performed on 3 slide(s) labeled [id number]. 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 All slides returned. Any additional sections, special stains or immunohistochemical stains performed by our laboratory will be kept here on file. 2:21 PM [facility] DERMATOPATHOLOGY LABORATORY Microscopic Description Specimen A. Slide(s), Left index fnger, OSC# [id number]: The epidermis is remarkable. Keratin fragments within the dermis are surrounded by a granulomatous inflammatory infiltrate. There are focal lipidized histiocytes. Additional deeper sections were reviewed. 2:21 PM [facility] DERMATOPATHOLOGY LABORATORY Disclaimer An external and internal positive and negative controls are appropriate for the histochemical, immunohistochemical and immunofluorescence stain(s) in this case (if any), except where stated explicitly. The performance characteristics of the stain(s) cited in this report were developed and its performance characteristic determined by the Dermatopathology Laboratory at [facility], directed by Dr. Duarte Vanessa. These tests need not be, and therefore are not, approved by the [place] Food and Drug Administration. The tests are used for clinical purposes. Billing Codes Specimen Charges Stain Charges 24505 1 2:21 PM [facility] DERMATOPATHOLOGY LABORATORY Embedded Images 2:21 PM [facility] DERMATOPATHOLOGY LABORATORY Pathology/Cytolog y SLIDE / Unknown 08/23/2018 08/23/2018 11:20 AM PROCESS LEAD Leatha Ansari DO LAB - PATHOLOGY/C YTOLOGY ORDERABLES DERMATOPATHOLOGY LABORATORY [facility] - Department of Dermatology [address] [place] [address], [facility] [phone] * DERMATOPATH TECHNICAL REPORT (08/15/2018 12:00 AM PROCESS LEAD) Case Report Dermatopathology Report Case: [id number] Authorizing Provider: Deja Lynn MD Collected: 08/15/2018 12:00 AM Pathologist: Ronaldo Vanessa MD Received: 08/16/2018 06:46 AM Specimen: Skin, left index finger 12:31 PM [facility] DERMATOPATHOLOGY LABORATORY Clinical History VV vs SCC vs Cyst. Firm somewhat verrucous papule. 12:31 PM [facility] DERMATOPATHOLOGY LABORATORY Gross Description Specimen A: Received is one formalin filled container labeled with the patient's name and designated left index finger. The specimen consists of a shave (2 pieces) measuring 3z5b1sh & 4p0e0me. Jar 0. [facility] Dermatopathology Laboratory performed the technical component only. 12:31 PM [facility] DERMATOPATHOLOGY LABORATORY Embedded Images 12:31 PM [facility] DERMATOPATHOLOGY LABORATORY DISCLAIMER An external and internal positive and negative controls are appropriate for the histochemical, immunohistochemical and immunofluorescence stain(s) in this case (if any), except where stated explicitly. The performance characteristics of the stain(s) cited in this report were developed and its performance characteristic determined by the Dermatopathology Laboratory at [facility], directed by Dr. Duarte Vanessa. These tests need not be, and therefore are not, approved by the [place] Food and Drug Administration. The tests are used for clinical purposes. 12:31 PM [facility] DERMATOPATHOLOGY LABORATORY Pathology/Cytolog y TISSUE SPECIMEN FROM SKIN / Unknown 08/15/2018 08/16/2018 6:46 AM PROCESS LEAD Deja Lynn MD LAB - PATHOLOGY/CYT OLOGY ORDERABLES DERMATOPATHOLOGY LABORATORY [facility] - Department of Dermatology [address] [place] [address], [facility] [phone]
--- OUTSIDE RECORDS SUMMARY | 2024-09-22 00:22 | XMS_ITS | Clinical Summary ---
Author Organization [facility] Address [address] [place] [address] Care Team Providers Care Vac Press Operator Name Role Phone Unavailable Primary Care Provider Unavailabl e Source Comments [facility],non-owned Affiliates and Associated Physician Practices is amultiple site organization consisting of ambulatory clinics and hospital sitesin [place], [place], [place] and [place]. This disclosure is being madepursuant to the Care Everywhere program and may not contain all information available regarding this patient. Last updated 18.[facility] Social History Tobacco Use Types Packs/Day Years Used Date Smoking Tobacco: Never Assessed Sex and Gender Information Value Date Recorded Sex Assigned at Not on file Gender Identity Not on file Sexual Orientation Not on file Plan of Treatment Health Maintenance Due Date Last Done Comments BONE DENSITY TESTING 1942 MEDICARE AWV 12 MONTHS 1942 DTAP/TDAP/TD VACCINES (1 - Tdap) 1961 PNEUMOCOCCAL VACCINE 50+ (1 of 1 - PCV) 1992 ZOSTER VACCINE (1 of 2) 1992 Respiratory Syncytial Virus (RSV) Vaccine Pt: or over 60 yrs (1 - 1-dose 75+ series) 2017 COVID-19 VACCINE ( - 2023-2 5 season) 2024 INFLUENZA VACCINE (#1) 2024 DEPRESSION SCREENING 08/02/2024 HEPATITIS B VACCINE Aged Out No longe r eligible based on patient's age to complete this topic HIB VACCINE Aged Out No longer eligi ble based on patient's age to complete this topic HPV VACCINE Aged Out No longer eligi ble based on patient's age to complete this topic MENINGOCOCCAL (Group B) VACCINE Aged Out No longer eligible based on patient's age to complete this topic MENINGOCOCCAL VACCINE Aged Out No mele talib eligible based on patient's age to complete this topic
--- OUTSIDE RECORDS SUMMARY | 2024-09-22 00:22 | XMS_ITS | Encounter Summary ---
Author Organization [facility] Address [address] [place] [address] Care Team Providers Care Director Of Corporate Strategy Name Role Phone Unavailable Primary Care Provider Unavailabl e Encounter Details Date Type Department Care Team (Late st Contact Info) Description 01/10/[address] [facility] - DermPath Lab [address] [facility] [place] [address] Estefania Royal MD [address] [facility] [address] DE[place] [address] Social History Tobacco Use Types Packs/Day Years Used Date Smoking Tobacco: Never Assessed Sex and Gender Information Value Date Recorded Sex Assigned at Not on file Gender Identity Not on file Sexual Orientation Not on file documented as of this encounter Plan of Treatment Not on file documented as of this encounter Procedures Procedure Name Priority Date/Time Associated Diagnosis Comments DERMATOPATHOLOGY Routine 01/10/2024 8:28 AM CDT documented in this encounter Results * DERMATOPATHOLOGY (01/10/2024 8:28 AM CDT) Case Report Dermatopathology Report Case: [id number] Authorizing Provider: Estefania Royal MD Collected: 01/10/2024 08:28 AM Ordering Location: [facility] - Received: 01/10/2024 10:51 AM DermPath Lab Pathologist: Shea Best MD Specimen: Skin, right leg 4:21 PM CDT DERMATOPATHOLOGY LABORATORY Final Diagnosis Specimen A. 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 The specimen consists of a shave biopsy measuring 26q31w1 mm. Jar 0. 4:21 PM T DERMATOPATHOLOGY LABORATORY Microscopic Description Specimen A. SKIN, right leg: There is alternating orthokeratosis and parakeratosis. Along the undersurface of the epidermis, there are buds of atypical keratinocytes in a disorderly arrangement. There is prominent pigmentation in some of the keratinocytes. [place]-1/Melan-A immunohistochemical stain fails to highlight a melanocytic [...] characteristic determined by the Dermatopathology Laboratory at [facility], directed by Dr. Duarte Vanessa. These tests need not be, and therefore are not, approved by the [place] Food and Drug Administration. The tests are used for clinical purposes. Billing Codes Specimen Charges Stain Charges 52268 1 69396 83681 1 1 4:21 PM CDT DERMATOPATHOLOGY LABORATORY Embedded Images 4:21 PM CDT DERMATOPATHOLOGY LABORATORY Pathology/Cytolo gy TISSUE SPECIMEN FROM SKIN / Unknown 01/10/2024 8:28 AM CDT 01/10/2024 10:51 AM CDT Estefania Royal MD LAB - PATHOLOGY/CYTO LOGY ORDERABLES DERMATOPATHOLOGY LABORATORY [facility] - Department of Dermatology [address] [phone] documented in this encounter Visit Diagnoses Not on filedocumented in this encounter
--- OUTSIDE RECORDS SUMMARY | 2024-09-22 00:22 | XMS_ITS | Encounter Summary ---
Author Organization [facility] Address [address] [place] [address] Care Team Providers Care Business Architect Name Role Phone Unavailable Primary Care Provider Unavailabl e Encounter Details Date Type Department Care Team (Late st Contact Info) Description 02/13/2020 Lab Requisition [facility] DermPath Lab [address] [place] [phone] Estefania Royal MD [address] [facility] [address] [place] [address] Social History Tobacco Use Types Packs/Day Years Used Date Smoking Tobacco: Never Assessed Sex and Gender Information Value Date Recorded Sex Assigned at Not on file Gender Identity Not on file Sexual Orientation Not on file documented as of this encounter Plan of Treatment Not on file documented as of this encounter Procedures Procedure Name Priority Date/Time Associated Diagnosis Comments DERMATOPATHOLOGY Routine 02/12/2020 12:0 0 AM CDT documented in this encounter Results * DERMATOPATHOLOGY (02/12/2020 12:00 AM CDT) Case Report Dermatopathology Report Case: [id number] Authorizing Provider: Estefania Royal MD Collected: 02/12/2020 12:00 AM Ordering Location: [facility] DermPath Lab Received: 02/13/2020 07:24 AM Pathologist: Denisse Blankenship MD Specimen: Skin, left roche 0 3:58 PM CDT DERMATOPATHOLOGY LABORATORY Final Diagnosis Specimen A. SKIN, left roche: BASAL CELL CARCINOMA, NODULAR TYPE (C44.719) 0 3:58 PM CDT DERMATOPATHOLOGY LABORATORY Clinical History R/O BCC, telangiectatis papule. 0 3:58 PM CDT DERMATOPATHOLOGY LABORATORY Gross Description Specimen A: Received is one formalin filled container labeled with the patient's name and designated left roche. The specimen consists of a shave biopsy measuring 6x4x1 mm. Jar 0. 0 3:58 PM CDT DERMATOPATHOLOGY LABORATORY Microscopic Description Specimen A. SKIN, left roche: Within the dermis there are aggregates of basaloid cells with a high nuclear to cytoplasmic ratio and peripheral palisading. 0 3:58 PM CDT DERMATOPATHOLOGY LABORATORY Disclaimer An external and internal positive and negative controls are appropriate for the histochemical, immunohistochemical and immunofluorescence stain(s) in this case (if any), except where stated explicitly. The performance characteristics of the stain(s) cited in this report were developed and its performance characteristic determined by the Dermatopathology Laboratory at [facility], directed by Dr. Duarte Vanessa. These tests need not be, and therefore are not, approved by the [place] Food and Drug Administration. The tests are used for clinical purposes. Billing Codes Specimen Charges Stain Charges 57097 1 0 3:58 PM CDT DERMATOPATHOLOGY LABORATORY Embedded Images 0 3:58 PM CDT DERMATOPATHOLOGY LABORATORY Pathology/Cytolog y TISSUE SPECIMEN FROM SKIN / Unknown 02/12/2020 02/13/2020 7:24 AM CDT Estefania Royal MD LAB - PATHOLOGY/CYTO LOGY ORDERABLES DERMATOPATHOLOGY LABORATORY [facility] - Department of Dermatology Experience Design Director [place]/[address] [phone] documented in this encounter Visit Diagnoses Not on filedocumented in this encounter
--- NOTE | 2024-09-22 08:43 | WPDANESEPPF ---
Anes - Initial Pre Proc Eval Procedure: Operation Date: 09/22/24 10:00 Proposed Procedures p Colonoscopy - Marito Chapin MD Date/Time: 09/22/24 08:43 Surgeon: Marito Chapin MD Pre Op Diagnosis: Personal hx of colon polyps Patient Data Age: 84 Gender: F Height: 1.63 m Weight: 57.1 kg Allergies Allergy/AdvReac Type Severity Reaction Status Date / Time bee venom protein (honey AdvReac Other Verified 09/22/24 08:43 bee) (bees) caffeine AdvReac Jittery Verified 09/22/24 08:43 Home Medications ?Medication ?Instructions ?Recorded ?Confirmed ?Type cholecalciferol (vitamin D3) 50 50 mcg PO DAILY 12/23/20 09/22/24 History mcg (2,000 unit) capsule melatonin 5 mg tablet See Rx Instructions .Route 09/08/21 09/22/24 Rx .COMPLEX #90 tabs multivitamin 1 tablet PO DAILY 08/17/22 09/22/24 History psyllium husk 3.4 gram/5.4 gram 1 tbsp PO DAILY 08/17/22 09/22/24 History oral powder (Metamucil) escitalopram oxalate 10 mg tablet See Rx Instructions .Route 08/03/24 09/22/24 Rx .COMPLEX #30 tabs lisinopril 5 mg tablet See Rx Instructions .Route 09/07/24 09/22/24 Rx .COMPLEX #90 tabs rosuvastatin 5 mg tablet See Rx Instructions .Route 09/07/24 09/22/24 Rx .COMPLEX #90 tabs mirtazapine 7.5 mg tablet See Rx Instructions .Route 09/18/24 09/22/24 Rx .COMPLEX #90 tabs Patient hx anesthesia problems: none Family hx anesthesia problems: none Results Review: All pre-operative results and documents have been reviewed as part of the pre-operative evaluation. 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 History of hysterectomy History of bladder suspension procedure Family History Family History Father Pancreatic cancer Cerebrovascular accident Mother Cerebrovascular accident Sibling Parkinsons disease Sibling Lung cancer Daughter Dyslipidemia Social History Social History Social History: Surrogate decision maker: Daughter Sherron. Code status: Full code. Patient lives independently in a 2 story home with 3 steps to enter. The patient's bedroom is up to 13 steps. She is able to move her bedroom downstairs. Smoking status: Never smoker Second hand tobacco smoke exposure: No Alcohol intake: never Substance use: never Substance use type: does not use Do You Feel Safe in your Home?: Yes Lack of Transportation: No Lack of Food: Never True Current Housing: I Have Housing Concerned About Future Housing: No Difficulty Paying Gas/Electric Bills: No Difficulty Paying for Meds: No Currently Unemployed: No Education: High School Diploma/GED Difficulty w/ Childcare or Family Care: No Living arrangements: alone Additional living arrangements comments: The patient is and lives in her own home in [place]. She is independent of all activities of daily living. She has 3 grown children. 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 Gender identity (if verbalized by the patient): Female Sexual Orientation (if Verbalized by the Patient): Straight or Heterosexual Spiritual care concerns: No Anes - Eval Final PreProcedure Day of Procedure 09/22/24 08:43 Patient weight: normal Heart: regular rate and rhythm Lungs: clear to auscultation and normal air movement Airway: Mallampati scale class II Neurological: alert and oriented Last oral intake: >/= 8 hours ASA classification: III Emergent: no Anesthetic plan: proceed Anesthesia type and monitoring: general GIVS and standard monitoring Results Review: All pre-operative results and documents have been reviewed as part of the pre-operative evaluation. Informed Consent: The patient's anesthetic plan and its attendant risks and benefits were discussed with the patient/family/POA. Questions were solicited and answers provided to the satisfaction of the patient/family/POA.
[2024-09-22 08:45] VITALS: BP 103/90; PULSE 84; RESP 20; TEMP 36.9; O2SAT 97; BMI 21.2
[2024-09-22] MEDS: LACTATED RINGERS 1,000 ML 150 ML IV CONT (08:59)
--- NOTE | 2024-09-22 09:24 | PM.HPGS ---
History of Present Illness History of Present Illness Consent: Risks, benefits, and alternatives have been discussed and questions answered. Patient agrees to proceed with procedure. 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 History of hysterectomy History of bladder suspension procedure Family History Family History Father Pancreatic cancer Cerebrovascular accident Mother Cerebrovascular accident Sibling Parkinsons disease Sibling Lung cancer Daughter Dyslipidemia Social History Social History Social History: Surrogate decision maker: Daughter Sherron. Code status: Full code. Patient lives independently in a 2 story home with 3 steps to enter. The patient's bedroom is up to 13 steps. She is able to move her bedroom downstairs. Smoking status: Never smoker Second hand tobacco smoke exposure: No Alcohol intake: never Substance use: never Substance use type: does not use Do You Feel Safe in your Home?: Yes Lack of Transportation: No Lack of Food: Never True Current Housing: I Have Housing Concerned About Future Housing: No Difficulty Paying Gas/Electric Bills: No Difficulty Paying for Meds: No Currently Unemployed: No Education: High School Diploma/GED Difficulty w/ Childcare or Family Care: No Living arrangements: alone Additional living arrangements comments: The patient is and lives in her own home in [place]. She is independent of all activities of daily living. She has 3 grown children. 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 Gender identity (if verbalized by the patient): Female Sexual Orientation (if Verbalized by the Patient): Straight or Heterosexual Spiritual care concerns: No Meds Home Medications and Allergies Home Medications ?Medication ?Instructions ?Recorded ?Confirmed ?Type cholecalciferol (vitamin D3) 50 50 mcg PO DAILY 12/23/20 09/22/24 History mcg (2,000 unit) capsule melatonin 5 mg tablet See Rx Instructions .Route 09/08/21 09/22/24 Rx .COMPLEX #90 tabs multivitamin 1 tablet PO DAILY 08/17/22 09/22/24 History psyllium husk 3.4 gram/5.4 gram 1 tbsp PO DAILY 08/17/22 09/22/24 History oral powder (Metamucil) escitalopram oxalate 10 mg tablet See Rx Instructions .Route 08/03/24 09/22/24 Rx .COMPLEX #30 tabs lisinopril 5 mg tablet See Rx Instructions .Route 09/07/24 09/22/24 Rx .COMPLEX #90 tabs rosuvastatin 5 mg tablet See Rx Instructions .Route 09/07/24 09/22/24 Rx .COMPLEX #90 tabs mirtazapine 7.5 mg tablet See Rx Instructions .Route 09/18/24 09/22/24 Rx .COMPLEX #90 tabs Allergies Allergy/AdvReac Type Severity Reaction Status Date / Time bee venom protein (honey AdvReac Other Verified 09/22/24 08:43 bee) (bees) caffeine AdvReac Jittery Verified 09/22/24 08:43 Vital Signs Vital Signs - 24 hr 09/22/24 08:45 Temperature 98.5 F Pulse Rate 84 Respiratory Rate 20 Blood Pressure 103/90 Pulse Oximetry 97 Oxygen Delivery Room Air Exam Const: General: comfortable and no acute distress HENMT: Face/Nose/Sinus: Normal nares present Eyes: General: appearance normal, both eyes and all related structures Neck: Neck: no JVD Resp: Auscultation: clear to auscultation bilaterally Cardio: Rate: regular rate Rhythm: regular rhythm GI: Inspection: non-distended GI Palp: Yes Soft to palpation Skin: General skin exam: normal color Neuro: General: gait normal Speech: normal speech Extrem: General: normal to inspection Psych: Mental Status: mental status grossly normal Assessment and Plan Assessment and plan (1) Colon polyp: Code(s): K63.5 - Polyp of colon Status: Acute Assessment and Plan: colonoscopy
[2024-09-22 09:49] VITALS: BP 94/47; PULSE 77; RESP 20; O2SAT 94
[2024-09-22 09:59] VITALS: BP 93/48; PULSE 78; RESP 20; O2SAT 99
[2024-09-22 10:09] VITALS: BP 131/63; PULSE 76; RESP 18; O2SAT 99
== END 2024-09-22 10:18 | disposition home or self-care (01) ==
PROVIDERS: PCP Nurse Practitioner Family; Visit Provider Internal Medicine Gastroenterology
PROC: 0DJD8ZZ Inspection of Lower Intestinal Tract, Via Natural or Artificial Opening Endoscopic (ICD-10-PCS; CPT 45378; principal; 2024-09-22 10:00)
DX: Z12.11 Encounter for screening for malignant neoplasm of colon (principal); K57.30 Diverticulosis of large intestine without perforation or abscess without bleeding; Z86.0100 Personal history of colon polyps, unspecified
CPT/HCPCS: G0105; J2003; J2704; J7120

== ENCOUNTER 2024-10-31 11:58 | Outpatient (CLI) | payer MEDICARE, SELFPAY ==
--- NOTE | ~2024-10-31 | XR_ITS ---
Left Knee Technique: AP, lateral, and sunrise views were obtained. Clinical History: Pain Findings: No fracture or dislocation is seen. Osseous alignment is anatomic. Joint spaces are preserv ed without degenerative or erosive change. There is chondrocalcinosis of the menisci. No joint effusi on is seen. Impression: Chondrocalcinosis of the menisci. Reviewed, dictated and finalized at location M. Impression: Chondrocalcinosis of the menisci.
--- OUTSIDE RECORDS SUMMARY | 2024-10-31 13:07 | XMS_ITS | Encounter Summary ---
Author Organization [facility] Address [address] [facility] [place] [address] Care Team Providers Care Donor Services Coordinator Name Role Phone Unavailable Primary Care Provider Unavailabl e Encounter Details Date Type Department Care Team (Late st Contact Info) Description 08/23/2018 Lab Requisition [facility] Care DermPath Lab [address] [facility], [place] [address] Leatha Ansari DO [address] [facility] 3L [place] [address] Social History Tobacco Use Types Packs/Day Years [...] DERMPATH SLIDE CONSULT Routine 08/23/2018 12:00 AM COPY COORDINATOR documented in this encounter Results * DERMPATH SLIDE CONSULT (08/23/2018 12:00 AM COPY COORDINATOR) Case Report Dermatopathology Report Case: [id number] Authorizing Provider: Leatha Ansari DO Collected: 08/23/2018 12:00 AM Pathologist: Ronaldo Vanessa MD Received: 08/23/2018 11:20 AM Specimen: Slide(s), Left index fnger, OSC# [id number] 2:21 PM COPY COORDINATOR DERMATOPATHOLOGY LABORATORY Final Diagnosis Specimen A. 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 Leatha Ansari, a consult will be performed on 3 slide(s) labeled [id number]. 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 All slides returned. Any additional sections, special stains or immunohistochemical stains performed by our laboratory will be kept here on file. 2:21 PM [facility] DERMATOPATHOLOGY LABORATORY Microscopic Description Specimen A. Slide(s), Left index fnger, OSC# [id number]: The epidermis is remarkable. Keratin fragments within the dermis are surrounded by a granulomatous inflammatory infiltrate. There are focal lipidized histiocytes. Additional deeper sections were reviewed. 2:21 PM [facility] DERMATOPATHOLOGY LABORATORY Disclaimer An external and internal positive and negative controls are appropriate for the histochemical, immunohistochemical and immunofluorescence stain(s) in this case (if any), except where stated explicitly. The performance characteristics of the stain(s) cited in this report were developed and its performance characteristic determined by the Dermatopathology Laboratory at [facility], directed by Dr. Duarte Vanessa. These tests need not be, and therefore are not, approved by the [place] Food and Drug Administration. The tests are used for clinical purposes. Billing Codes Specimen Charges Stain Charges 72224 1 9 2:21 PM [facility] DERMATOPATHOLOGY LABORATORY Embedded Images 2:21 PM [facility] DERMATOPATHOLOGY LABORATORY Pathology/Cytolog y SLIDE / Unknown 08/23/2018 08/23/2018 11:20 AM COPY COORDINATOR Leatha Ansari DO LAB - PATHOLOGY/C YTOLOGY ORDERABLES DERMATOPATHOLOGY LABORATORY [facility] - Department of Dermatology [address] [place] [address], [address]th [place] [address], [facility] [phone] documented in this encounter Visit Diagnoses Not on filedocumented in this encounter
--- OUTSIDE RECORDS SUMMARY | 2024-10-31 13:07 | XMS_ITS | Clinical Summary ---
Author Organization [facility] Address [address] [facility] [place] [address] Care Team Providers Care Elevator Repair Mechanic Name Role Phone Unavailable Primary Care Provider Unavailabl e Source Comments [facility],non-owned Affiliates and Associated Physician Practices is amultiple site organization consisting of ambulatory clinics and hospital sitesin [place], [place], [place] and [place]. This disclosure is being madepursuant to the Care Everywhere program and may not contain all information available regarding this patient. Last updated 18.[facility] Social History Tobacco Use Types Packs/Day Years [...] to complete this topic MENINGOCOCCAL (Group B) VACC INE SHARED DECISION-MAKING Aged Out No longer eligibl e based on patient's age to complete this topic MENINGOCOCCAL GROUPS A/C/Y/W VACCINE Aged Out No longer eligible b ased on patient's age to complete this topic
--- OUTSIDE RECORDS SUMMARY | 2024-10-31 13:07 | XMS_ITS | Encounter Summary ---
Author Organization [facility] Address [address] [facility] [place] [address] Care Team Providers Care Blue Prints Trimmer Name Role Phone Unavailable Primary Care Provider Unavailabl e Encounter Details Date Type Department Care Team (Late st Contact Info) Description 02/13/2020 Lab Requisition [facility] DermPath Lab [address] [facility], [facility] [place] [phone] Estefania Royal MD [address] [facility] 3 [place] [address] Social History Tobacco Use Types Packs/Day Years [...] AM CDT) Case Report Dermatopathology Report Case: [id number] Authorizing Provider: Estefania Royal MD Collected: 02/12/2020 12:00 AM Ordering Location: [facility] DermPath Lab Received: 02/13/2020 07:24 AM Pathologist: [...] characteristic determined by the Dermatopathology Laboratory at [facility], directed by Dr. Duarte Vanessa. These tests need not be, and therefore are not, approved by the [place] Food and Drug Administration. The tests are used for clinical purposes. Billing Codes Specimen Charges Stain Charges 10446 1 0 3:58 PM CDT DERMATOPATHOLOGY LABORATORY Embedded Images 0 3:58 PM CDT DERMATOPATHOLOGY LABORATORY Pathology/Cytolog y TISSUE SPECIMEN FROM SKIN / Unknown 02/12/2020 02/13/2020 7:24 AM CDT Estefania Royal MD LAB - PATHOLOGY/CYTO LOGY ORDERABLES DERMATOPATHOLOGY LABORATORY [facility] - Department of Dermatology Ethologist [place]/[address] [phone] documented in this encounter Visit Diagnoses Not on filedocumented in this encounter
--- OUTSIDE RECORDS SUMMARY | 2024-10-31 13:07 | XMS_ITS | Encounter Summary ---
Author Organization [facility] Address [address] [facility] [place] [address] Care Team Providers Care Chamber Worker Name Role Phone Unavailable Primary Care Provider Unavailabl e Encounter Details Date Type Department Care Team (Late st Contact Info) Description 01/10/2024 Lab Requisition [facility] - DermPath Lab [address] [facility], [facility] [place] [address] Estefania Royal MD [address] [facility] 3 [place] [address] Social History Tobacco Use Types Packs/Day Years [...] AM CDT) Case Report Dermatopathology Report Case: [id number] Authorizing Provider: Estefania Royal MD Collected: 01/10/2024 08:28 AM Ordering Location: [facility] - Received: 01/10/2024 10:51 [...] specimen consists of a shave biopsy measuring [id number] mm. Jar 0. 4:21 PM T DERMATOPATHOLOGY LABORATORY Microscopic Description Specimen A. SKIN, right leg: There is alternating orthokeratosis and parakeratosis. Along the undersurface of the epidermis, there are buds of atypical keratinocytes in a disorderly arrangement. There is prominent pigmentation in some of the keratinocytes. [place]-1/Melan-A immunohistochemical stain fails to highlight a melanocytic [...] characteristic determined by the Dermatopathology Laboratory at [facility], directed by Dr. Duarte Vanessa. These tests need not be, and therefore are not, approved by the [place] Food and Drug Administration. The tests are used for clinical purposes. Billing Codes Specimen Charges Stain Charges 63828 1 75832 27928 1 1 4:21 PM CDT DERMATOPATHOLOGY LABORATORY Embedded Images 4:21 PM CDT DERMATOPATHOLOGY LABORATORY Pathology/Cytolo gy TISSUE SPECIMEN FROM SKIN / Unknown 01/10/2024 8:28 AM CDT 01/10/2024 10:51 AM CDT Estefania Royal MD LAB - PATHOLOGY/CYTO LOGY ORDERABLES DERMATOPATHOLOGY LABORATORY [facility] - Department of Dermatology [address], [address] Floor [address] [phone] documented in this encounter Visit Diagnoses Not on filedocumented in this encounter
--- OUTSIDE RECORDS SUMMARY | 2024-10-31 13:07 | XMS_ITS | Encounter Summary ---
Author Organization [facility] Address [address] [facility] [place] [address] Care Team Providers Care Boat Canvas Maker And Installer Name Role Phone Unavailable Primary Care Provider Unavailabl e Encounter Details Date Type Department Care Team (Late st Contact Info) Description 08/16/2018 Lab Requisition [facility] Care DermPath Lab [address] [facility], [facility] [address] Deja Lynn MD [address] [facility] 3 [place] [address] Social History Tobacco Use Types Packs/Day Years [...] DERMATOPATH TECHNICAL REPORT Routine 08/15/2018 12:00 AM CREDIT INTERVIEWER documented in this encounter Results * DERMATOPATH TECHNICAL REPORT (08/15/2018 12:00 AM CREDIT INTERVIEWER) Case Report Dermatopathology Report Case: [id number] Authorizing Provider: Deja Lynn MD Collected: 08/15/2018 12:00 AM Pathologist: Ronaldo Vanessa MD Received: 08/16/2018 06:46 AM Specimen: Skin, left index finger 9 12:31 PM CREDIT INTERVIEWER DERMATOPATHOLOGY LABORATORY Clinical History VV vs SCC vs Cyst. Firm somewhat verrucous papule. 9 12:31 PM CREDIT INTERVIEWER DERMATOPATHOLOGY LABORATORY Gross Description Specimen A: Received is one formalin filled container labeled with the patient's name and designated left index finger. The specimen consists of a shave (2 pieces) measuring [id number] & 4r1x0ga. Jar 0. [facility] Dermatopathology Laboratory performed the technical component only. 9 12:31 PM [facility] DERMATOPATHOLOGY LABORATORY Embedded Images 12:31 PM [facility] DERMATOPATHOLOGY LABORATORY DISCLAIMER An external and internal positive and negative controls are appropriate for the histochemical, immunohistochemical and immunofluorescence stain(s) in this case (if any), except where stated explicitly. The performance characteristics of the stain(s) cited in this report were developed and its performance characteristic determined by the Dermatopathology Laboratory at [facility], directed by Dr. Duarte Vanessa. These tests need not be, and therefore are not, approved by the [place] Food and Drug Administration. The tests are used for clinical purposes. 9 12:31 PM [facility] DERMATOPATHOLOGY LABORATORY Pathology/Cytolog y TISSUE SPECIMEN FROM SKIN / Unknown 08/15/2018 08/16/2018 6:46 AM CREDIT INTERVIEWER Deja Lynn MD LAB - PATHOLOGY/CYT OLOGY ORDERABLES DERMATOPATHOLOGY LABORATORY [facility] - Department of Dermatology [address] [place] [address], 5th Floor Lab [address] [phone] documented in this encounter Visit Diagnoses Not on filedocumented in this encounter
--- OUTSIDE RECORDS SUMMARY | 2024-10-31 13:07 | XMS_ITS | Encounter Summary ---
Author Organization [facility] Address [address] [place] [address] Care Team Providers Care Workforce Manager Name Role Phone Unavailable Primary Care Provider Unavailabl e Encounter Details Date Type Department Care Team (Late st Contact Info) Description 02/13/2020 Lab Requisition [facility] Care DermPath Lab [address] [facility], [place] [address] Estefania Royal MD [address] [facility] 3 [place] [address] Social History Tobacco Use Types Packs/Day Years [...]
== END 2024-10-31 11:59 | disposition home or self-care (01) ==
PROVIDERS: PCP Nurse Practitioner Family; Visit Provider Nurse Practitioner Family
DX: M25.562 Pain in left knee (principal); M11.262 Other chondrocalcinosis, left knee
CPT/HCPCS: 73562

== ENCOUNTER 2025-06-10 10:52 | Emergency (ER) | payer MEDICARE, SELFPAY ==
[2025-06-10 10:52] VITALS: BP 157/80; PULSE 79; RESP 16; TEMP 36.6; O2SAT 96
--- OUTSIDE RECORDS SUMMARY | 2025-06-10 10:54 | XMS_ITS | Encounter Summary ---
Author Organization [facility] Address [address] [place] [address] Care Team Providers Care Wood Mechanist Name Role Phone Unavailable Primary Care Provider Unavailabl e Encounter Details Date Type Department Care Team (Late st Contact Info) Description 01/10/2024 Lab Requisition [facility] - DermPath Lab [address] [facility], [facility] [place] [address] Estefania Royal MD [address] [facility] 3 [place] [address] Social History Tobacco Use Types Packs/Day Years Used Date Smoking Tobacco: Never Assessed Comments Unknown Sex and Gender Information Value Date Recorded Sex Assigned at Not on file Legal Sex Female 11:04 AM UNDERWRITING TECHNICIAN Gender Identity Not on file Sexual Orientation Not on file documented as of this encounter Plan of Treatment Not on file documented as of this encounter Procedures Procedure Name Priority Date/Time Associated Diagnosis Comments DERMATOPATHOLOGY Routine 01/10/2024 8:28 AM CDT documented in this encounter Results * DERMATOPATHOLOGY (01/10/2024 8:28 AM CDT) Case Report Dermatopathology Report Case: [id number] Authorizing Provider: Estefania Royal MD Collected: 01/10/2024 08:28 AM Ordering Location: [facility] - Received: 01/10/2024 10:51 AM DermPath Lab Pathologist: Shea Best MD Specimen: Skin, right leg 4 4:21 PM CDT DERMATOPATHOLOGY LABORATORY Final Diagnosis Specimen A. 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 The specimen consists of a shave biopsy measuring 11o79k3 mm. Jar 0. 4:21 PM CDT DERMATOPATHOLOGY LABORATORY Microscopic Description Specimen A. SKIN, right leg: There is alternating orthokeratosis and parakeratosis. Along the undersurface of the epidermis, there are buds of atypical keratinocytes in a disorderly arrangement. There is prominent pigmentation in some of the keratinocytes. [place]-1/Melan-A immunohistochemical stain fails to highlight a melanocytic proliferation. Ki-67 stain highlights an increased proliferative index in the lower epidermis. 4:21 PM CDT DERMATOPATHOLOGY LABORATORY Disclaimer An external and internal positive and negative controls are appropriate for the histochemical, immunohistochemical and immunofluorescence stain(s) in this case (if any), except where stated explicitly. The performance characteristics of the stain(s) cited in this report were developed and its performance characteristic determined by the Dermatopathology Laboratory at [facility], directed by Dr. Duarte Vanessa. These tests need not be, and therefore are not, approved by the [place] Food and Drug Administration. The tests are used for clinical purposes. Billing Codes Specimen Charges Stain Charges 42398 1 25084 78621 1 1 4:21 PM CDT DERMATOPATHOLOGY LABORATORY Embedded Images 4:21 PM CDT DERMATOPATHOLOGY LABORATORY Pathology/Cytolo gy TISSUE SPECIMEN FROM SKIN / Unknown 01/10/2024 8:28 AM CDT 01/10/2024 10:51 AM CDT us Estefania Royal MD LAB - PATHOLOGY/CYTOLOGY ORD ERABLES Final Result DERMATOPATHOLOGY LABORATORY [facility] - Department of Dermatology [address], [address] [phone] documented in this encounter Visit Diagnoses Not on filedocumented in this encounter
--- OUTSIDE RECORDS SUMMARY | 2025-06-10 10:54 | XMS_ITS | Encounter Summary ---
Author Organization [facility] Address [address] [facility] [place] [address] Care Team Providers Care Chief Of Internal Medicine Name Role Phone Unavailable Primary Care Provider Unavailabl e Encounter Details Date Type Department Care Team (Late st Contact Info) Description 02/13/[address] [facility] DermPath Lab [address] 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 DermPath Lab Received: 02/13/2020 07:24 AM Pathologist: Denisse Blankenship MD Specimen: Skin, left roche 0 3:58 PM CDT DERMATOPATHOLOGY LABORATORY Final Diagnosis Specimen A. SKIN, left roche: BASAL CELL CARCINOMA, NODULAR TYPE (C44.719) 0 3:58 PM CDT DERMATOPATHOLOGY LABORATORY at 1558 CDT Clinical History R/O BCC, telangiectatis papule. 0 [...] characteristic determined by the Dermatopathology Laboratory at [facility], directed by Dr. Duarte Vanessa. These tests need not be, and therefore are not, approved by the [place] Food and Drug Administration. The tests are used for clinical purposes. Billing Codes Specimen Charges Stain Charges 93815 1 0 3:58 PM CDT DERMATOPATHOLOGY LABORATORY Embedded Images 0 3:58 PM CDT DERMATOPATHOLOGY LABORATORY Pathology/Cytolog y TISSUE SPECIMEN FROM SKIN / Unknown 02/12/2020 02/13/2020 7:24 AM CDT Estefania Royal MD LAB - PATHOLOGY/CYTOLOGY ORD ERABLES Final Result DERMATOPATHOLOGY LABORATORY [facility] - Department of Dermatology [facility]/[address] [phone] documented in this encounter Visit Diagnoses Not on filedocumented in this encounter
--- OUTSIDE RECORDS SUMMARY | 2025-06-10 10:54 | XMS_ITS | Encounter Summary ---
Author Organization [facility] Address [address] [place] [address] Care Team Providers Care Director Industrial Relations Name Role Phone Unavailable Primary Care Provider Unavailabl e Encounter Details Date Type Department Care Team (Late st Contact Info) Description 08/23/2018 Lab Requisition [facility] Care DermPath Lab [address] [facility], [place] [phone] Leatha Ansari DO [address] [facility] 3 [place] [address] Social History Tobacco Use Types Packs/Day Years Used Date Smoking Tobacco: Never Assessed Comments Unknown Sex and Gender Information Value Date Recorded Sex Assigned at Not on file Legal Sex Female 11:04 AM BLACKJACK PIT BOSS Gender Identity Not on file Sexual Orientation Not on file documented as of this encounter Plan of Treatment Not on file documented as of this encounter Procedures Procedure Name Priority Date/Time Associated Diagnosis Comments DERMPATH SLIDE CONSULT Routine 08/23/2018 12:00 AM BLACKJACK PIT BOSS documented in this encounter Results * DERMPATH SLIDE CONSULT (08/23/2018 12:00 AM BLACKJACK PIT BOSS) Case Report Dermatopathology Report Case: [id number] Authorizing Provider: Leatha Ansari DO Collected: 08/23/2018 12:00 AM Pathologist: Ronaldo Vanessa MD Received: 08/23/2018 11:20 AM Specimen: Slide(s), Left index fnger, OSC# [id number] 9 2:21 PM BLACKJACK PIT [employer]OSS DERMATOPATHOLOGY LABORATORY Final Diagnosis Specimen A. 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 Leatha Ansari, a consult will be performed on 3 slide(s) labeled [id number]. 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 All slides returned. Any additional sections, special stains or immunohistochemical stains performed by our laboratory will be kept here on file. 2:21 PM [facility] DERMATOPATHOLOGY LABORATORY Microscopic Description Specimen A. Slide(s), Left index fnger, OSC# [id number]: The epidermis is remarkable. Keratin fragments within the dermis are surrounded by a granulomatous inflammatory infiltrate. There are focal lipidized histiocytes. Additional deeper sections were reviewed. 2:21 PM [facility] DERMATOPATHOLOGY LABORATORY Disclaimer An external and internal positive and negative controls are appropriate for the histochemical, immunohistochemical and immunofluorescence stain(s) in this case (if any), except where stated explicitly. The performance characteristics of the stain(s) cited in this report were developed and its performance characteristic determined by the Dermatopathology Laboratory at [facility], directed by Dr. Duarte Vanessa. These tests need not be, and therefore are not, approved by the [place] Food and Drug Administration. The tests are used for clinical purposes. Billing Codes Specimen Charges Stain Charges 13395 1 9 2:21 PM [facility] DERMATOPATHOLOGY LABORATORY Embedded Images 2:21 PM [facility] DERMATOPATHOLOGY LABORATORY Pathology/Cytolog y SLIDE / Unknown 08/23/2018 08/23/2018 11:20 AM BLACKJACK PIT BOSS us Leatha Ansari DO LAB - PATHOLOGY/CYTOLOGY ORDERABLES Final Result DERMATOPATHOLOGY LABORATORY [facility] - Department of Dermatology [facility] [facility], 5th [place] [address], [facility] [phone] documented in this encounter Visit Diagnoses Not on filedocumented in this encounter
--- OUTSIDE RECORDS SUMMARY | 2025-06-10 10:54 | XMS_ITS | Encounter Summary ---
Author Organization [facility] Address [address] [place] [address] Care Team Providers Care Behavioral Health Professional Name Role Phone Unavailable Primary Care Provider Unavailabl e Encounter Details Date Type Department Care Team (Late st Contact Info) Description 08/16/2018 Lab Requisition [facility] Care DermPath Lab [address] [facility], [facility] [place] [phone] Deja Lynn MD [address] [facility] 3 [place] [address] Social History Tobacco Use Types Packs/Day Years Used Date Smoking Tobacco: Never Assessed Comments Unknown Sex and Gender Information Value Date Recorded Sex Assigned at Not on file Legal Sex Female 11:04 AM EMPLOYMENT AGENCY MANAGER Gender Identity Not on file Sexual Orientation Not on file documented as of this encounter Plan of Treatment Not on file documented as of this encounter Procedures Procedure Name Priority Date/Time Associated Diagnosis Comments DERMATOPATH TECHNICAL REPORT Routine 08/15/2018 12:00 AM EMPLOYMENT AGENCY MANAGER documented in this encounter Results * DERMATOPATH TECHNICAL REPORT (08/15/2018 12:00 AM EMPLOYMENT AGENCY MANAGER) Case Report Dermatopathology Report Case: [id number] Authorizing Provider: Deja Lynn MD Collected: 08/15/2018 12:00 AM Pathologist: Ronaldo Vanessa MD Received: 08/16/2018 06:46 AM Specimen: Skin, left index finger 9 12:31 PM EMPLOYMENT AGENCY MANAGER DERMATOPATHOLOGY LABORATORY Clinical History VV vs SCC vs Cyst. Firm somewhat verrucous papule. 9 12:31 PM EMPLOYMENT AGENCY MANAGER DERMATOPATHOLOGY LABORATORY Gross Description Specimen A: Received is one formalin filled container labeled with the patient's name and designated left index finger. The specimen consists of a shave (2 pieces) measuring [id number] & [id number]. Jar 0. [facility] Dermatopathology Laboratory performed the technical component only. 12:31 PM [facility] DERMATOPATHOLOGY LABORATORY Embedded Images 12:31 PM [facility] DERMATOPATHOLOGY LABORATORY DISCLAIMER An external and internal positive and negative controls are appropriate for the histochemical, immunohistochemical and immunofluorescence stain(s) in this case (if any), except where stated explicitly. The performance characteristics of the stain(s) cited in this report were developed and its performance characteristic determined by the Dermatopathology Laboratory at [facility], directed by Dr. Duarte Vanessa. These tests need not be, and therefore are not, approved by the [place] Food and Drug Administration. The tests are used for clinical purposes. 12:31 PM [facility] DERMATOPATHOLOGY LABORATORY at [address]31 EMPLOYMENT AGENCY MANAGER Pathology/Cytolog y TISSUE SPECIMEN FROM SKIN / Unknown 08/15/2018 08/16/2018 6:46 AM EMPLOYMENT AGENCY MANAGER us Deja Lynn MD LAB - PATHOLOGY/CYTOLOGY OR DERABLES Final Result DERMATOPATHOLOGY LABORATORY [facility] - Department of Dermatology [address] [facility] 5th [place] [address], [facility] [phone] documented in this encounter Visit Diagnoses Not on filedocumented in this encounter
--- OUTSIDE RECORDS SUMMARY | 2025-06-10 10:54 | XMS_ITS | Clinical Summary ---
Author Organization [facility] Address [address] [place] [address] Care Team Providers Care Manufacturing Chief Engineer Name Role Phone Unavailable Primary Care Provider Unavailabl e Source Comments [email or web address],non-owned Affiliates and Associated Physician Practices is amultiple site organization consisting of ambulatory clinics and hospital sitesin [place], [place], [place] and [place]. This disclosure is being madepursuant to the Care Everywhere program and may not contain all information available regarding this patient. 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
--- OUTSIDE RECORDS SUMMARY | 2025-06-10 10:54 | XMS_ITS | Encounter Summary ---
Author Organization [facility] Address [address] [facility] [place] [address] Care Team Providers Care Toolmaker Grade Three Name Role Phone Unavailable Primary Care Provider Unavailabl e Encounter Details Date Type Department Care Team (Late st Contact Info) Description 02/13/2020 Lab Requisition [facility] Care DermPath Lab [address] [facility] [place] [phone] Estefania Royal MD [address] [facility] 3 [place] [address] Social History Tobacco Use Types Packs/Day Years Used Date Smoking Tobacco: Never Assessed Comments Unknown Sex and Gender Information Value Date Recorded Sex Assigned at Not on file Legal Sex Female 11:04 AM CABLEMAN Gender Identity Not on file Sexual Orientation Not on file documented as of this encounter Plan of Treatment Not on file documented as of this encounter Visit Diagnoses Not on filedocumented in this encounter
--- NOTE | 2025-06-10 11:10 | ED.FEMALEGU ---
HPI - Female Genitourinary General Chief complaint: Urogenital-Female Stated complaint: uti Time Seen by Provider: 06/10/25 11:07 Source: patient Mode of arrival: ambulatory Limitations: no limitations History of Present Illness HPI Narrative: Patient is an 85-year-old female with some polyuria and a weird sensation when she urinates over the past 2 days. She has never had a UTI before. No other complaints. No back pain. No chest pain or shortness of breath. No nausea vomiting or diarrhea. No vaginal complaints. MD elicited complaint: UTI and other (She is having an odd or weird sensation when she feels like she has to urinate with polyuria especially at night) Pertinent past history: other (Hypertension, hyperlipidemia) Onset (ago): day(s) (2) Location of symptoms: none Severity: mild Female Urogenital Radiation: Non-Radiating Severity scale (1-10): 1 Quality of pain: other (No pain) Consistency: other (No pain) Vaginal discharge: none Vaginal bleeding: none Urinary symptoms: Frequency Exacerbating factors: urination Relieving factors: none Associated symptoms: denies other symptoms Treatment prior to arrival: none Sexual activity: No Patient : No Related Data Home Medications ?Medication ?Instructions ?Recorded ?Confirmed ?Last Taken ?Type cholecalciferol (vitamin D3) 50 50 mcg PO DAILY 12/23/20 10/31/24 09/21/24 History mcg (2,000 unit) capsule multivitamin 1 tablet PO DAILY 08/17/22 10/31/24 09/21/24 History psyllium husk 3.4 gram/5.4 gram 1 tbsp PO DAILY 08/17/22 10/31/24 09/20/24 History oral powder (Metamucil) bguykork-aoi-boduzk 5 mg-zeaxanth 1 cap PO DAILY 06/10/25 Unknown History 1 mg-bilberry 7.5 mg-herbal capsule (Macular Health Formula) Allergies Allergy/AdvReac Type Severity Reaction Status Date / Time bee venom protein (honey AdvReac Other Verified 06/10/25 10:59 bee) (bees) caffeine AdvReac Jittery Verified 06/10/25 10:59 Review of Systems Review of Systems: All systems reviewed & are unremarkable except as noted in HPI and below Constitutional: Constitutional: Reports no additional constitutional complaints Eyes: Eyes: Reports no additional eye complaints ENT: Reports system reviewed and no additional complaints, except as documented Cardiovascular: Cardiovascular: Reports no additional cardiovascular complaints Respiratory: Respiratory: Reports no additional respiratory complaints Gastrointestinal: Gastrointestinal: Reports no additional gastrointestinal complaints Genitourinary: Genitourinary: Reports no additional female genitourinary complaints Musculoskeletal: Musculoskeletal: Reports no additional musculoskeletal complaints Integumentary/Breasts: Skin/Breast: Reports system reviewed and no additional complaints, except as docu Neurologic: Reports system reviewed and no additional complaints, except as documented Psychiatric: Psychiatric: Reports no additional psychiatric complaints Endocrine: Endocrine: Reports no additional endocrine complaints Hematologic/Lymphatic: Hematologic/Lymphatic: Reports no additional hematologic/lymphatic complaints Allergic/Immunologic: Allergic/Immunologic: Reports no additional allergic/immunologic complaints PMFSH Past Medical History Medical History Shingles Arthritis Insomnia Hypertension Anxiety Benign paroxysmal positional vertigo Hyperlipidemia Vitamin D deficiency Hypothyroidism Colon polyp Surgical History Surgical History Status post Mohs surgery Resection of basal cell carcinoma from the nose. History of hysterectomy History of bladder suspension procedure Family History Family History Father Pancreatic cancer Cerebrovascular accident Mother Cerebrovascular accident Sibling Parkinsons disease Sibling Lung cancer Daughter Dyslipidemia Social History Social History Social History: Surrogate decision maker: Daughter Sherron. Code status: Full code. Patient lives independently in a 2 story home with 3 steps to enter. The patient's bedroom is up to 13 steps. She is able to move her bedroom downstairs. Second hand tobacco smoke exposure: No Alcohol intake: never Substance use: never Substance use type: does not use Do You Feel Safe in your Home?: Yes Lack of Transportation: No Lack of Food: Never True Current Housing: I Have Housing Concerned About Future Housing: No Difficulty Paying Gas/Electric Bills: No Difficulty Paying for Meds: No Currently Unemployed: No Education: High School Diploma/GED Difficulty w/ Childcare or Family Care: No Living arrangements: alone Additional living arrangements comments: The patient is and lives in her own home in [place]. She is independent of all activities of daily living. She has 3 grown children. 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 Gender identity (if verbalized by the patient): Female Sexual Orientation (if Verbalized by the Patient): Straight or Heterosexual Spiritual care concerns: No Exam Const: General: healthy appearing Nutritional Appearance: well nourished Orientation/consciousness: patient oriented x3 HENMT: Head: normal to inspection Ears: external ears normal Face/Nose/Sinus: Normal external nose present Eyes: Conjunctivae: conjunctivae normal Pupils: Equal, round and reactive pupils present EOM: EOMs intact bilaterally Neck: Neck: normal visual inspection Chest: Chest palpation & inspection: normal inspection of the chest Resp: Effort & Inspection: normal respiratory effort and not labored Auscultation: clear to auscultation bilaterally and no crackles Cardio: Rate: regular rate Rhythm: regular rhythm Heart sounds: no murmurs GI: Inspection: non-distended GI Palp: Yes Soft to palpation and No Tenderness to palpation present (GI) Auscultation: normal bowel sounds : General: Yes bladder normal to palpation Back/Spine/Pelvis: Back: no CVA tenderness Skin: General skin exam: normal color Rashes: no rashes Wounds: no wounds Neuro: General: patient oriented x3, moves all extremities, no meningeal signs, no focal motor deficits and CN's II-XI intact bilaterally Extrem: General: normal to inspection Psych: Appearance: grossly normal Mental Status: mental status grossly normal Affect: normal affect Attitude: cooperative Course Vital Signs Vital signs: Vital Signs Temperature 36.6 C 06/10/25 10:52 Pulse Rate 79 06/10/25 10:52 Respiratory Rate 16 06/10/25 10:52 Blood Pressure 157/80 H 06/10/25 10:52 Pulse Oximetry 96 06/10/25 10:52 Oxygen Delivery Room Air 06/10/25 10:52 Temperature 36.6 C 06/10/25 10:52 Pulse Rate 79 06/10/25 10:52 Respiratory Rate 16 06/10/25 10:52 Blood Pressure 157/80 H 06/10/25 10:52 Pulse Oximetry 96 06/10/25 10:52 Oxygen Delivery Room Air 06/10/25 10:52 MDM - Female Genitourinary MDM Narrative Medical decision making narrative: Patient is an 85-year-old female with a odd and weird feeling when she has to urinate that over comes her body and polyuria for the past 2 days. Start with UA. Lab Data Attestation: I reviewed the patient's lab results. Labs: Lab Results 06/10/25 Range/Units 11:43 Urine Color Light yellow (Yellow) Urine Appearance Clear (Clear) Urine pH 6.5 (5.0-8.0) Ur Specific Freedom 1.010 (1.010-1.020) Urine Protein Negative (Negative) Urine Glucose (UA) Negative (Negative) Urine Ketones Negative (Negative) Ur Blood (Man) 1+ H (Negative) Urine Nitrate Negative (Negative) Urine Bilirubin Negative (Negative) Urine Urobilinogen 0.2 (0.2-1.0) mg/dL Leukocyte Esterase Rfl 1+ H (Negative) JUAN/UL Urine RBC 0-2 (0-2) /hpf Urine WBC 7-9 H (0-3) /hpf Ur Squamous Epith Cells Few (Few) /hpf Ur Renal Epithelial Cell Few H (None) /hpf Urine Bacteria 1+ H (None) /hpf Discharge Plan Discharge Clinical Impression: Acute UTI Patient Disposition: Home Condition: Stable Instructions: Antibiotic Form, Urinary Tract Infection in Women (ED) Patient Language: Colombian Prescriptions: New ciprofloxacin HCl [Cipro] 500 mg tablet 500 mg PO BID 7 Days Qty: 14 0RF No Action Macular Health Formula 5-1-7.5 mg capsule 1 cap PO DAILY melatonin 5 mg tablet See Rx Instructions .ROUTE .COMPLEX Qty: 90 3RF Dose Instruction: TAKE ONE TABLET BY MOUTH AT BEDTIME Rx Instructions: TAKE ONE TABLET BY MOUTH AT BEDTIME multivitamin Tablet 1 tablet PO DAILY Metamucil 3.4 gram/5.4 gram powder 1 tbsp PO DAILY Rx Instructions: mix into at least 8 oz of water or juice before administering cholecalciferol (vitamin D3) 50 mcg (2,000 unit) capsule 50 mcg PO DAILY mirtazapine 7.5 mg tablet See Rx Instructions .ROUTE .COMPLEX Qty: 90 1RF Dose Instruction: TAKE ONE TABLET BY MOUTH AT BEDTIME Rx Instructions: TAKE ONE TABLET BY MOUTH AT BEDTIME escitalopram oxalate 10 mg tablet See Rx Instructions .ROUTE .COMPLEX Qty: 90 1RF Dose Instruction: TAKE ONE TABLET BY MOUTH DAILY Rx Instructions: TAKE ONE TABLET BY MOUTH DAILY rosuvastatin 5 mg tablet See Rx Instructions .ROUTE .COMPLEX Qty: 90 2RF Dose Instruction: TAKE ONE TABLET BY MOUTH DAILY Rx Instructions: TAKE ONE TABLET BY MOUTH DAILY lisinopril 5 mg tablet See Rx Instructions .ROUTE .COMPLEX Qty: 90 2RF Dose Instruction: TAKE ONE TABLET BY MOUTH EVERY MORNING Rx Instructions: TAKE ONE TABLET BY MOUTH EVERY MORNING Follow-up/Referrals: Elma Tatum NP [Primary Care Provider, [facility]] Time of Disposition: 11:58
--- OUTSIDE RECORDS SUMMARY | 2025-06-10 11:33 | XMS_ITS | Encounter Summary ---
Author Organization [facility] Address [address] [facility] [place] [address] Care Team Providers Care Supervisor Insecticide Name Role Phone Unavailable Primary Care Provider Unavailabl e Encounter Details Date Type Department Care Team (Late st Contact Info) Description 02/13/2020 Lab Requisition [facility] Care DermPath Lab [address] [facility] [place] [phone] Estefania Royal MD [address] [facility] 3 [place] [address] Social History Tobacco Use Types Packs/Day Years Used Date Smoking Tobacco: Never Assessed Comments Unknown Sex and Gender Information Value Date Recorded Sex Assigned at Not on file Legal Sex Female 11:04 AM ENGINEER PROCESS Gender Identity Not on file Sexual Orientation Not on file documented as of this encounter Plan of Treatment Not on file documented as of this encounter Visit Diagnoses Not on filedocumented in this encounter
--- OUTSIDE RECORDS SUMMARY | 2025-06-10 11:34 | XMS_ITS | Encounter Summary ---
Author Organization [facility] Address [address] [facility] [place] [address] Care Team Providers Care Digital Product Manager Name Role Phone Unavailable Primary Care Provider Unavailabl e Encounter Details Date Type Department Care Team (Late st Contact Info) Description 02/13/2020 Lab Requisition [facility] DermPath Lab [address] [facility] [facility] [place] [phone] Estefania Royal MD [address] [facility] 3 [place] [address] Social History Tobacco Use Types Packs/Day Years Used Date Smoking Tobacco: Never Assessed Comments Unknown Sex and Gender Information Value Date Recorded Sex Assigned at Not on file Legal Sex Female 11:04 AM CONTROL OFFICER MANAGER Gender Identity Not on file Sexual Orientation Not on file documented as of this encounter Plan of Treatment Not on file documented as of this encounter Procedures Procedure Name Priority Date/Time Associated Diagnosis Comments DERMATOPATHOLOGY Routine 02/12/2020 12:0 0 AM CDT documented in this encounter Results * DERMATOPATHOLOGY (02/12/2020 12:00 AM CDT) Case Report Dermatopathology Report Case: [id number] Authorizing Provider: Estefania Royal MD Collected: 02/12/2020 12:00 AM Ordering Location: [facility] DermPath Lab Received: 02/13/2020 07:24 AM [...] characteristic determined by the Dermatopathology Laboratory at [facility], directed by Dr. Duarte Vanessa. These tests need not be, and therefore are not, approved by the [place] Food and Drug Administration. The tests are used for clinical purposes. Billing Codes Specimen Charges Stain Charges 53368 1 0 3:58 PM CDT DERMATOPATHOLOGY LABORATORY Embedded Images 0 3:58 PM CDT DERMATOPATHOLOGY LABORATORY Pathology/Cytolog y TISSUE SPECIMEN FROM SKIN / Unknown 02/12/2020 02/13/2020 7:24 AM CDT Estefania Royal MD LAB - PATHOLOGY/CYTOLOGY ORD ERABLES Final Result DERMATOPATHOLOGY LABORATORY [facility] - Department of Dermatology Maintenance Technician 2Nd Shift Center/[address] [phone] documented in this encounter Visit Diagnoses Not on filedocumented in this encounter
--- OUTSIDE RECORDS SUMMARY | 2025-06-10 11:34 | XMS_ITS | Encounter Summary ---
Author Organization [facility] Address [address] [facility] [place] [address] Care Team Providers Care Halal Meat Packer Name Role Phone Unavailable Primary Care Provider Unavailabl e Encounter Details Date Type Department Care Team (Late st Contact Info) Description 01/10/2024 Lab Requisition [facility] - DermPath Lab [address] [facility], [facility] [place] [address] Estefania Royal MD [address] [facility] 3 [place] [address] Social History Tobacco Use Types Packs/Day Years Used Date Smoking Tobacco: Never Assessed Comments Unknown Sex and Gender Information Value Date Recorded Sex Assigned at Not on file Legal Sex Female 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 Gender Identity Not on file Sexual Orientation Not on file documented as of this encounter Plan of Treatment Not on file documented as of this encounter Procedures Procedure Name Priority Date/Time Associated Diagnosis Comments DERMATOPATHOLOGY Routine 01/10/2024 8:28 AM CDT documented in this encounter Results * DERMATOPATHOLOGY (01/10/2024 8:28 AM CDT) Case Report Dermatopathology Report Case: [id number] Authorizing Provider: Estefania Royal MD Collected: 01/10/2024 08:28 AM Ordering Location: [facility] - Received: 01/10/2024 10:51 AM [...] specimen consists of a shave biopsy measuring 49b78t9 mm. Jar 0. 4:21 PM CDT DERMATOPATHOLOGY LABORATORY Microscopic Description Specimen A. SKIN, right leg: There is alternating orthokeratosis and parakeratosis. Along the undersurface of the epidermis, there are buds of atypical keratinocytes in a disorderly arrangement. There is prominent pigmentation in some of the keratinocytes. [place]-1/Melan-A immunohistochemical stain fails to highlight a melanocytic [...] characteristic determined by the Dermatopathology Laboratory at [facility], directed by Dr. Duarte Vanessa. These tests need not be, and therefore are not, approved by the [place] Food and Drug Administration. The tests are used for clinical purposes. Billing Codes Specimen Charges Stain Charges 17936 1 45863 35288 1 1 4:21 PM CDT DERMATOPATHOLOGY LABORATORY Embedded Images 4:21 PM CDT DERMATOPATHOLOGY LABORATORY Pathology/Cytolo gy TISSUE SPECIMEN FROM SKIN / Unknown 01/10/2024 8:28 AM CDT 01/10/2024 10:51 AM CDT us Estefania Royal MD LAB - PATHOLOGY/CYTOLOGY ORD ERABLES Final Result DERMATOPATHOLOGY LABORATORY [facility] - Department of Dermatology [address], [address] [phone] documented in this encounter Visit Diagnoses Not on filedocumented in this encounter
--- OUTSIDE RECORDS SUMMARY | 2025-06-10 11:34 | XMS_ITS | Encounter Summary ---
Author Organization [facility] Address [address] [facility] [place] [address] Care Team Providers Care Chip Frier Name Role Phone Unavailable Primary Care Provider Unavailabl e Encounter Details Date Type Department Care Team (Late st Contact Info) Description 08/16/2018 Lab Requisition [facility] Care DermPath Lab [address] [facility], [facility] [place] [phone] Deja Lynn MD [address] [facility] 3 [place] [address] Social History Tobacco Use Types Packs/Day Years Used Date Smoking Tobacco: Never Assessed Comments Unknown Sex and Gender Information Value Date Recorded Sex Assigned at Not on file Legal Sex Female 11:04 AM VALET Gender Identity Not on file Sexual Orientation Not on file documented as of this encounter Plan of Treatment Not on file documented as of this encounter Procedures Procedure Name Priority Date/Time Associated Diagnosis Comments DERMATOPATH TECHNICAL REPORT Routine 08/15/2018 12:00 AM VALET documented in this encounter Results * DERMATOPATH TECHNICAL REPORT (08/15/2018 12:00 AM VALET) Case Report Dermatopathology Report Case: [id number] Authorizing Provider: Deja Lynn MD Collected: 08/15/2018 12:00 AM Pathologist: Ronaldo Vanessa MD Received: 08/16/2018 06:46 AM Specimen: Skin, left index finger 9 12:31 PM [facility] DERMATOPATHOLOGY LABORATORY Clinical History VV vs SCC vs Cyst. Firm somewhat verrucous papule. 9 12:31 PM [facility] DERMATOPATHOLOGY LABORATORY Gross Description Specimen A: Received is one formalin filled container labeled with the patient's name and designated left index finger. The specimen consists of a shave (2 pieces) measuring 9v2q3bf & 8i8t7ke. Jar 0. [facility] Dermatopathology Laboratory performed the technical component only. 12:31 PM [facility] DERMATOPATHOLOGY LABORATORY Embedded Images 12:31 PM [facility] DERMATOPATHOLOGY LABORATORY DISCLAIMER An external and [...] are used for clinical purposes. 12:31 PM [facility] DERMATOPATHOLOGY LABORATORY at [address] [facility] Pathology/Cytolog y TISSUE SPECIMEN FROM SKIN / Unknown 08/15/2018 08/16/2018 6:46 AM VALET us Deja Lynn MD LAB - PATHOLOGY/CYTOLOGY OR DERABLES Final Result DERMATOPATHOLOGY LABORATORY [facility] - Department of Dermatology [address] [facility] 5th [place] [address], [facility] [phone] documented in this encounter Visit Diagnoses Not on filedocumented in this encounter
--- OUTSIDE RECORDS SUMMARY | 2025-06-10 11:34 | XMS_ITS | Encounter Summary ---
Author Organization [facility] Address [address] [facility] [place] [address] Care Team Providers Care Front End Architect Name Role Phone Unavailable Primary Care Provider Unavailabl e Encounter Details Date Type Department Care Team (Late st Contact Info) Description 08/23/2018 Lab Requisition [facility] Care DermPath Lab [address] [facility], [place] [phone] Leatha Ansari DO [address] [facility] 3 [place] [address] Social History Tobacco Use Types Packs/Day Years Used Date Smoking Tobacco: Never Assessed Comments Unknown Sex and Gender Information Value Date Recorded Sex Assigned at Not on file Legal Sex Female 11: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 Gender Identity Not on file Sexual Orientation Not on file documented as of this encounter Plan of Treatment Not on file documented as of this encounter Procedures Procedure Name Priority Date/Time Associated Diagnosis Comments DERMPATH SLIDE CONSULT Routine 08/23/2018 12:00 AM COMBINATION MACHINE TOOL SETTER documented in this encounter Results * DERMPATH SLIDE CONSULT (08/23/2018 12:00 AM COMBINATION MACHINE TOOL SETTER) Case Report Dermatopathology Report [id number]: [id number] Authorizing Provider: Leatha Ansari DO Collected: 08/23/2018 12:00 AM Pathologist: Ronaldo Vanessa MD Received: 08/23/2018 11:20 AM Specimen: Slide(s), Left index fnger, [id number]# [id number] 9 2:21 PM COMBINATION MACHINE TOOL SETTER DERMATOPATHOLOGY LABORATORY Final Diagnosis Specimen A. 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 Leatha Ansari, a consult will be performed on 3 slide(s) labeled [id number]. 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 All slides returned. Any additional sections, special stains or immunohistochemical stains performed by our laboratory will be kept here on file. 2:21 PM [facility] DERMATOPATHOLOGY LABORATORY Microscopic Description Specimen A. Slide(s), Left index fnger, OSC# [id number]: The epidermis is remarkable. Keratin fragments within the dermis are surrounded by a granulomatous inflammatory infiltrate. There are focal lipidized histiocytes. Additional deeper sections were reviewed. 2:21 PM [facility] DERMATOPATHOLOGY LABORATORY Disclaimer An external and internal positive and negative controls are appropriate for the histochemical, immunohistochemical and immunofluorescence stain(s) in this case (if any), except where stated explicitly. The performance characteristics of the stain(s) cited in this report were developed and its performance characteristic determined by the Dermatopathology Laboratory at [facility], directed by Dr. Duarte Vanessa. These tests need not be, and therefore are not, approved by the [place] Food and Drug Administration. The tests are used for clinical purposes. Billing Codes Specimen Charges Stain Charges 59153 1 9 2:21 PM [facility] DERMATOPATHOLOGY LABORATORY Embedded Images 2:21 PM [facility] DERMATOPATHOLOGY LABORATORY Pathology/Cytolog y SLIDE / Unknown 08/23/2018 08/23/2018 11:20 AM COMBINATION MACHINE TOOL SETTER us Leatha Ansari DO LAB - PATHOLOGY/CYTOLOGY ORDERABLES Final Result DERMATOPATHOLOGY LABORATORY [facility] - Department of Dermatology [facility] [facility], 5th [place] [address], [facility] [phone] documented in this encounter Visit Diagnoses Not on filedocumented in this encounter
--- OUTSIDE RECORDS SUMMARY | 2025-06-10 11:34 | XMS_ITS | Clinical Summary ---
Author Organization [facility] Address [address] [place] [address] Care Team Providers Care Pharmacy Care Coordinator Name Role Phone Unavailable Primary Care Provider Unavailabl e Source Comments [facility]non-owned Affiliates and Associated Physician Practices is amultiple site organization consisting of ambulatory clinics and hospital sitesin [place], [place], [place] and [place]. This disclosure is being madepursuant to the Care Everywhere program and may not contain all information available regarding this patient. Last updated 18.[facility] 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
[2025-06-10 11:47] LABS: Add Urine Microscopic? YES; Appearance Urine Clear (Clear); Glucose Urine UA Negative (Negative); Leukocyte Esterase Ur 1+ LEU/UL (Negative); Nitrate Urine Negative (Negative); Specific Grav Ur 1.010 (1.010-1.020)
--- NOTE | 2025-06-10 12:01 | PC.NURSE ---
On 06/10/25, the student, [jason beavers ], provided care and completed [facility] documentation on this patient. I have reviewed the student's documentation and agree with the findings.
[2025-06-10 12:05] VITALS: BP 151/82; PULSE 67; RESP 18; TEMP 36.7; O2SAT 92
--- NOTE | 2025-06-13 12:58 | PC.NURSE ---
urine culture, preliminary, growth noted, awaiting final
== END 2025-06-10 12:05 | disposition home or self-care (01) ==
PROVIDERS: Emergency Provider Emergency Medicine; PCP Nurse Practitioner Family
DX: N39.0 Urinary tract infection, site not specified (principal); E78.5 Hyperlipidemia, unspecified; I10 Essential (primary) hypertension; E03.9 Hypothyroidism, unspecified
CPT/HCPCS: 81001; 99283

== ENCOUNTER 2025-06-18 10:59 | Outpatient (CLI) | payer MEDICARE, SELFPAY ==
[2025-06-18 11:12] LABS: Hematocrit 43.3 % (35.0-42.0); Hemoglobin 14.3 g/dL (11.7-13.8); Immature Granulocyte Percent A 0.2 % (0.0-0.0); Lymphocytes Absolute Auto 1.80 K/mm3 (1.10-4.50); Mean Corpuscular HGB Conc 33.0 g/dL (32-36); Mean Corpuscular Hemoglobin 28.9 pg (27.0-31.0); Mean Corpuscular Volume 87.7 fL (78.0-102.0); Nucleated Red Blood Cells Absolute Auto 0.00 K/mm3 (0.00-0.00); Nucleated Red Blood Cells Perc 0.0 % (0-0.0); Platelet Count Result 265 K/mm3 (150-420); Red Blood Count 4.94 M/mm3 (4.20-5.40); White Blood Count 5.7 K/mm3 (4.8-10.8)
[2025-06-18 11:30] LABS: Alanine Aminotransferase 23 U/L (6-35); Albumin Level 4.5 g/dL (3.5-5.1); Anion Gap 9 mmol/L (4-12); Aspartate Amino Transferase 36 U/L (14-36); Blood Urea Nitrogen 16 mg/dL (7-17); Calcium 9.5 mg/dL (8.4-10.2); Carbon Dioxide 30 mmol/L (22-30); Chloride 103 mmol/L (98-107); Cholesterol 199 mg/dL (0-200); Estimated Glomerular Filt Rate 57; Glucose 89 mg/dL (65-110); HDL Direct 78 mg/dL; Osmolality Calculated 294 mOsm/kg (285-295); Potassium 4.0 mmol/L (3.4-5.0); Sodium 142 mmol/L (137-145); Total Protein 7.0 g/dL (6.3-8.2); Triglycerides 142 mg/dL (<150)
[2025-06-18 11:53] LABS: Alkaline Phosphatase 65 U/L (38-126)
[2025-06-18 18:12] LABS: Bilirubin,Total < 0.1 mg/dL (0.2-1.3)
[2025-06-18 18:27] LABS: Free T4 Free Thyroxine 1.07 ng/dL (0.78-2.19)
[2025-06-18 18:40] LABS: Thyroid Stimulating Hormone 4.190 uIU/mL (0.465-4.680)
== END 2025-06-18 11:00 | disposition home or self-care (01) ==
LOC: CHSLAB 11:00
PROVIDERS: PCP Nurse Practitioner Family; Visit Provider Nurse Practitioner Family
DX: E03.9 Hypothyroidism, unspecified (principal); I10 Essential (primary) hypertension; Z79.899 Other long term (current) drug therapy; E55.9 Vitamin D deficiency, unspecified; R79.89 Other specified abnormal findings of blood chemistry; Z13.6 Encounter for screening for cardiovascular disorders
CPT/HCPCS: 36415; 80053; 80061; 82306; 84439; 84443; 84480; 85025

== ENCOUNTER 2025-06-25 10:57 | Outpatient (CLI) | payer MEDICARE, SELFPAY ==
[2025-06-25 11:10] LABS: Add Urine Microscopic? NO; Appearance Urine Clear (Clear); Glucose Urine UA Negative (Negative); Leukocyte Esterase Ur Negative LEU/UL (Negative); Nitrate Urine Negative (Negative); Specific Grav Ur <= 1.005 (1.010-1.020)
--- OUTSIDE RECORDS SUMMARY | 2025-06-25 13:00 | XMS_ITS | Encounter Summary ---
Author Organization [facility] Address [address] [facility] [place] [address] Care Team Providers Care Manager Product Management Name Role Phone Unavailable Primary Care Provider Unavailabl e Encounter Details Date Type Department Care Team (Late st Contact Info) Description 02/13/2020 Lab Requisition [facility] Care DermPath Lab [address] [facility], [place] [address] Estefania Royal MD [address] 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
--- OUTSIDE RECORDS SUMMARY | 2025-06-25 13:00 | XMS_ITS | Encounter Summary ---
Author Organization [facility] Address [address] [facility] [place] [address] Care Team Providers Care Salesforce Consultant Name Role Phone Unavailable Primary Care Provider Unavailabl e Encounter Details Date Type Department Care Team (Late st Contact Info) Description 08/23/2018 Lab Requisition [facility] Care DermPath Lab [address] [facility], [place] [address] Leatha Ansari DO [address] [facility] 3 [place] [address] Social History Tobacco Use Types Packs/Day Years Used Date Smoking Tobacco: Never Assessed Comments Unknown Sex and Gender Information Value Date Recorded Sex Assigned at Not on file Legal Sex Female 11:04 AM RESIDENTIAL SALES CONSULTANT Gender Identity Not on file Sexual Orientation Not on file documented as of this encounter Plan of Treatment Not on file documented as of this encounter Procedures Procedure Name Priority Date/Time Associated Diagnosis Comments DERMPATH SLIDE CONSULT Routine 08/23/2018 12:00 AM RESIDENTIAL SALES CONSULTANT documented in this encounter Results * DERMPATH SLIDE CONSULT (08/23/2018 12:00 AM RESIDENTIAL SALES CONSULTANT) Case Report Dermatopathology Report Case: [id number] Authorizing Provider: Leatha Ansari DO Collected: 08/23/2018 12:00 AM Pathologist: Ronaldo Vanessa MD Received: 08/23/2018 11:20 AM Specimen: Slide(s), Left index fnger, OSC# [id number] 9 2:21 PM RESIDENTIAL SALES CONSULTANT DERMATOPATHOLOGY LABORATORY Final Diagnosis Specimen A. 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 Leatha Ansari, a consult will be performed on 3 slide(s) labeled [id number]. 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 All slides returned. Any additional sections, special stains or immunohistochemical stains performed by our laboratory will be kept here on file. 2:21 PM [facility] DERMATOPATHOLOGY LABORATORY Microscopic Description Specimen A. Slide(s), Left index fnger, OSC# [id number]: The epidermis is remarkable. Keratin fragments within the dermis are surrounded by a granulomatous inflammatory infiltrate. There are focal lipidized histiocytes. Additional deeper sections were reviewed. 2:21 PM [facility] DERMATOPATHOLOGY LABORATORY Disclaimer An external and internal positive and negative controls are appropriate for the histochemical, immunohistochemical and immunofluorescence stain(s) in this case (if any), except where stated explicitly. The performance characteristics of the stain(s) cited in this report were developed and its performance characteristic determined by the Dermatopathology Laboratory at [facility], directed by Dr. Duarte Vanessa. These tests need not be, and therefore are not, approved by the [place] Food and Drug Administration. The tests are used for clinical purposes. Billing Codes Specimen Charges Stain Charges 23485 1 9 2:21 PM [facility] DERMATOPATHOLOGY LABORATORY Embedded Images 2:21 PM [facility] DERMATOPATHOLOGY LABORATORY Pathology/Cytolog y SLIDE / Unknown 08/23/2018 08/23/2018 11:20 AM RESIDENTIAL SALES CONSULTANT us Leatha Ansari DO LAB - PATHOLOGY/CYTOLOGY ORDERABLES Final Result DERMATOPATHOLOGY LABORATORY [facility] - Department of Dermatology [facility] [facility], 5th [place] [address], [facility] [phone] documented in this encounter Visit Diagnoses Not on filedocumented in this encounter
--- OUTSIDE RECORDS SUMMARY | 2025-06-25 13:01 | XMS_ITS | Clinical Summary ---
Author Organization [facility] Address [address] [place] [address] Care Team Providers Care Advertising Traffic Manager Name Role Phone Unavailable Primary Care Provider Unavailabl e Source Comments [facility] [employer],non-owned Affiliates and Associated Physician Practices is amultiple site organization consisting of ambulatory clinics and hospital sitesin [place], [place], [place] and [place]. This disclosure is being madepursuant to the Care Everywhere program and may not contain all information available regarding this patient. 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
--- OUTSIDE RECORDS SUMMARY | 2025-06-25 13:01 | XMS_ITS | Encounter Summary ---
Author Organization [facility] Address [address] [facility] [place] [address] Care Team Providers Care Field Advisor Name Role Phone Unavailable Primary Care Provider Unavailabl e Encounter Details Date Type Department Care Team (Late st Contact Info) Description 08/16/2018 Lab Requisition [facility] Care DermPath Lab [address] [facility], [facility] [place] [address] Deja Lynn MD [address] [facility] 3 [place] [address] Social History Tobacco Use Types Packs/Day Years Used Date Smoking Tobacco: Never Assessed Comments Unknown Sex and Gender Information Value Date Recorded Sex Assigned at Not on file Legal Sex Female 11:04 AM RECYCLING SPECIALIST Gender Identity Not on file Sexual Orientation Not on file documented as of this encounter Plan of Treatment Not on file documented as of this encounter Procedures Procedure Name Priority Date/Time Associated Diagnosis Comments DERMATOPATH TECHNICAL REPORT Routine 08/15/2018 12:00 AM RECYCLING SPECIALIST documented in this encounter Results * DERMATOPATH TECHNICAL REPORT (08/15/2018 12:00 AM RECYCLING SPECIALIST) Case Report Dermatopathology Report Case: [id number] Authorizing Provider: Deja Lynn MD Collected: 08/15/2018 12:00 AM Pathologist: Ronaldo Vanessa MD Received: 08/16/2018 06:46 AM Specimen: Skin, left index finger 9 12:31 PM RECYCLING SPECIALIST DERMATOPATHOLOGY LABORATORY Clinical History VV vs SCC vs Cyst. Firm somewhat verrucous papule. 9 12:31 PM RECYCLING SPECIALIST DERMATOPATHOLOGY LABORATORY Gross Description Specimen A: Received is one formalin filled container labeled with the patient's name and designated left index finger. The specimen consists of a shave (2 pieces) measuring [id number] & 9p7p9ws. Jar 0. [facility] Dermatopathology Laboratory performed the technical component only. 12:31 PM [facility] DERMATOPATHOLOGY LABORATORY Embedded Images 12:31 PM [facility] DERMATOPATHOLOGY LABORATORY DISCLAIMER An external and internal positive and negative controls are appropriate for the histochemical, immunohistochemical and immunofluorescence stain(s) in this case (if any), except where stated explicitly. The performance characteristics of the stain(s) cited in this report were developed and its performance characteristic determined by the Dermatopathology Laboratory at [facility], directed by Dr. Duarte Vanessa. These tests need not be, and therefore are not, approved by the [place] Food and Drug Administration. The tests are used for clinical purposes. 12:31 PM [facility] DERMATOPATHOLOGY LABORATORY at [address] RECYCLING SPECIALIST Pathology/Cytolog y TISSUE SPECIMEN FROM SKIN / Unknown 08/15/2018 08/16/2018 6:46 AM RECYCLING SPECIALIST us Deja Lynn MD LAB - PATHOLOGY/CYTOLOGY OR DERABLES Final Result DERMATOPATHOLOGY LABORATORY [facility] - Department of Dermatology [address] [facility] 5th [place] [address], [facility] [phone] documented in this encounter Visit Diagnoses Not on filedocumented in this encounter
--- OUTSIDE RECORDS SUMMARY | 2025-06-25 13:01 | XMS_ITS | Encounter Summary ---
Author Organization [facility] Address [address] [place] [address] Care Team Providers Care Transit Operations Supervisor Name Role Phone Unavailable Primary Care Provider Unavailabl e Encounter Details Date Type Department Care Team (Late st Contact Info) Description 02/13/2020 Lab Requisition [facility] DermPath Lab [address] [facility], [facility] [place] [address] Estefania Royal MD [address] [facility] 3 [place] [address] Social History Tobacco Use Types Packs/Day Years Used Date Smoking Tobacco: Never Assessed Comments Unknown Sex and Gender Information Value Date Recorded Sex Assigned at Not on file Legal Sex Female 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 Gender Identity Not on file Sexual Orientation Not on file documented as of this encounter Plan of Treatment Not on file documented as of this encounter Procedures Procedure Name Priority Date/Time Associated Diagnosis Comments DERMATOPATHOLOGY Routine 02/12/2020 12:0 0 AM CDT documented in this encounter Results * DERMATOPATHOLOGY (02/12/2020 12:00 AM CDT) Case Report Dermatopathology Report Case: [id number] Authorizing Provider: Estefania Royal MD Collected: 02/12/2020 12:00 AM Ordering Location: [facility] DermPath Lab Received: 02/13/2020 07:24 [...] characteristic determined by the Dermatopathology Laboratory at [facility], directed by Dr. Duatre Vanessa. These tests need not be, and therefore are not, approved by the [place] Food and Drug Administration. The tests are used for clinical purposes. Billing Codes Specimen Charges Stain Charges 94410 1 0 3:58 PM CDT DERMATOPATHOLOGY LABORATORY Embedded Images 0 3:58 PM CDT DERMATOPATHOLOGY LABORATORY Pathology/Cytolog y TISSUE SPECIMEN FROM SKIN / Unknown 02/12/2020 02/13/2020 7:24 AM CDT Estefania Royal MD LAB - PATHOLOGY/CYTOLOGY ORD ERABLES Final Result DERMATOPATHOLOGY LABORATORY [facility] - Department of Dermatology [facility]/[address] [phone] documented in this encounter Visit Diagnoses Not on filedocumented in this encounter
--- OUTSIDE RECORDS SUMMARY | 2025-06-25 13:01 | XMS_ITS | Encounter Summary ---
Author Organization [facility] Address [address] [place] [address] Care Team Providers Care Hospital Medicine Director Name Role Phone Unavailable Primary Care Provider Unavailabl e Encounter Details Date Type Department Care Team (Late st Contact Info) Description 01/10/2024 Lab Requisition [facility] - DermPath Lab [address], [facility] [place] [address] Estefania Royal MD [address] [facility] [address] [place] [address] Social History Tobacco Use Types Packs/Day Years Used Date Smoking Tobacco: Never Assessed Comments Unknown Sex and Gender Information Value Date Recorded Sex Assigned at Not on file Legal Sex Female 11: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 Gender Identity Not on file Sexual Orientation Not on file documented as of this encounter Plan of Treatment Not on file documented as of this encounter Procedures Procedure Name Priority Date/Time Associated Diagnosis Comments DERMATOPATHOLOGY Routine 01/10/2024 8:28 AM CDT documented in this encounter Results * DERMATOPATHOLOGY (01/10/2024 8:28 AM CDT) Case Report Dermatopathology Report Case: [id number] Authorizing Provider: Estefania Royal MD Collected: 01/10/2024 08:28 AM Ordering Location: [facility] - Received: 01/10/2024 10:51 AM [...] specimen consists of a shave biopsy measuring [id number] mm. Jar 0. 4:21 PM CDT DERMATOPATHOLOGY LABORATORY Microscopic Description Specimen A. SKIN, right leg: There is alternating orthokeratosis and parakeratosis. Along the undersurface of the epidermis, there are buds of atypical keratinocytes in a disorderly arrangement. There is prominent pigmentation in some of the keratinocytes. [place]-1/Melan-A immunohistochemical stain fails to highlight a melanocytic [...] characteristic determined by the Dermatopathology Laboratory at [facility], directed by Dr. Duarte Vanessa. These tests need not be, and therefore are not, approved by the [place] Food and Drug Administration. The tests are used for clinical purposes. Billing Codes Specimen Charges Stain Charges 40191 1 12182 13762 1 1 4:21 PM CDT DERMATOPATHOLOGY LABORATORY Embedded Images 4:21 PM CDT DERMATOPATHOLOGY LABORATORY Pathology/Cytolo gy TISSUE SPECIMEN FROM SKIN / Unknown 01/10/2024 8:28 AM CDT 01/10/2024 10:51 AM CDT us Estefania Royal MD LAB - PATHOLOGY/CYTOLOGY ORD ERABLES Final Result DERMATOPATHOLOGY LABORATORY [facility] - Department of Dermatology [address], [address] [phone] documented in this encounter Visit Diagnoses Not on filedocumented in this encounter
== END 2025-06-25 10:58 | disposition home or self-care (01) ==
LOC: CHSLAB 10:58
PROVIDERS: PCP Nurse Practitioner Family; Visit Provider Nurse Practitioner Family
DX: Z87.898 Personal history of other specified conditions (principal)
CPT/HCPCS: 81003

== ENCOUNTER 2025-07-09 11:18 | Outpatient (CLI) | payer MEDICARE, SELFPAY ==
[2025-07-09 13:09] LABS: Total Triiodothyronine (T3) 1.19 NG/ML (0.97-1.69)
== END 2025-07-09 11:19 | disposition home or self-care (01) ==
LOC: CHSLAB 07-10 11:20
PROVIDERS: PCP Nurse Practitioner Family; Visit Provider Nurse Practitioner Family
DX: R79.89 Other specified abnormal findings of blood chemistry (principal); E03.9 Hypothyroidism, unspecified
CPT/HCPCS: 84480